=== PATIENT | male | born 1960 | race African-American/Black ===

== ENCOUNTER 2016-12-05 17:29 | Inpatient (IN) | payer MEDICAID, OTHER ==
[~2016-12-05] VITALS: Ht 170.2 cm; Wt 69.4 kg
--- NOTE | 2016-12-05 18:12 | Emergency Room Report ---
History of Present Illness General Chief Complaint: Upper Respiratory Illness Source: Patient Present Illness HPI The patient presents with dyspnea, cough is nonproductive or and orthopnea. He was diagnosed with congestive heart failure in July. He is taking medications to help treat this at this time. This includes a water pill. He claims that he has been able to take the medication. He was told the etiology for his CHF might be drugs, HIV or other problems. He denies chest pain. There is anxiety with the dyspnea. He initially denies drugs at this time (see tox). He has also heard himself wheezing. He feels feverish but has not documented. No NVD, although he states he is occasionally incontinent of stool when he urinates. No dysuria. States last CD4 and viral load "OK". Recently rechecked. Allergies: Coded Allergies: No Known Allergies (Unverified , 12/05/16) Patient History Past Medical History: see triage record Social History: Reports: drug use Social History Narrative With significant other Reviewed Nursing Documentation: PMH: Agreed, PSxH: Agreed Nursing Documentation-PMH Past Medical History: No History, Except For Hx Cardiac Problems: Yes - CHF, HIV+ Hx COPD: Yes Review of Systems All Other Systems: negative except mentioned in HPI Physical Exam Vital Signs Date Time Temp Pulse Resp B/P Pulse Ox O2 Delivery O2 Flow Rate FiO2 12/05/16 17:56 98.1 134 28 102/50 99 Room Air Sp02 EP Interpretation: reviewed, normal General Appearance: well appearing, GCS 15, mild distress Head: normocephalic Eyes: bilateral eye PERRL, bilateral eye normal inspection ENT: moist mucus membranes Neck: supple Respiratory: crackles, rales Cardiovascular #1: no edema, no murmur, JVD - to jaw sitting, tachycardia Cardiovascular #2: 2+ radial (R) Gastrointestinal: normal inspection, normal bowel sounds, non tender, no mass, non-distended Musculoskeletal: back normal, gait/station normal, normal range of motion Neurologic: alert, oriented x3, grossly normal Psychiatric: anxious Skin: normal inspection, warm/dry Medical Decision Making Diagnostic Impression: Primary Impression: CHF (congestive heart failure) Qualified Codes: I50.9 - Heart failure, unspecified Additional Impressions: Amphetamine abuse Tachycardia ER Course The patient presents with tachypnea and orthopnea with a physical exam consistent with congestive heart failure. Differential includes acute myocardial infarction, CHF, bronchitis, pneumonia amongst others. Evaluation did EKG, chest x-ray and labs. The patient be treated with nitro paste and Lasix. In addition he'll get reading treatment here. EKG without acute injury. CXR with CHF. Labs with negative troponin and elevated BNP. Leukopenia. Improved but still with YATES minimal exertion. Admit telemetry. Discussed Dr. Vivas. Discussed Dr. Woods. Admit Dr. Loja. Laboratory Tests Test 12/05/16 19:30 White Blood Count 2.1 K/UL (4.8-10.8) *L Red Blood Count 5.73 M/UL (4.70-6.10) Hemoglobin 14.8 G/DL (14.2-18.0) Hematocrit 48.3 % (42.0-52.0) Mean Corpuscular Volume 84 FL (80-99) Mean Corpuscular Hemoglobin 25.8 PG (27.0-31.0) L Mean Corpuscular Hemoglobin Concent 30.6 G/DL (32.0-36.0) L Red Cell Distribution Width 17.3 % (11.6-14.8) H Platelet Count 191 K/UL (150-450) Mean Platelet Volume 7.1 FL (6.5-10.1) Neutrophils (%) (Auto) % (45.0-75.0) Lymphocytes (%) (Auto) % (20.0-45.0) Monocytes (%) (Auto) % (1.0-10.0) Eosinophils (%) (Auto) % (0.0-3.0) Basophils (%) (Auto) % (0.0-2.0) Differential Total Cells Counted 100 Neutrophils % (Manual) 56 % (45-75) Lymphocytes % (Manual) 34 % (20-45) Monocytes % (Manual) 9 % (1-10) Eosinophils % (Manual) 0 % (0-3) Basophils % (Manual) 0 % (0-2) Band Neutrophils 1 % (0-8) Platelet Estimate Adequate Platelet Morphology Normal Anisocytosis 1+ Prothrombin Time 22.2 SEC (9.30-11.50) H Prothrombin Time INR 2.1 (0.9-1.1) H PTT 35 SEC (23-33) H Urine Color Brown Urine Appearance Clear Urine pH 6 (4.5-8.0) Urine Specific [place] 1.020 (1.005-1.035) Urine Protein 3+ (NEGATIVE) H Urine Glucose (UA) Negative (NEGATIVE) Urine Ketones Negative (NEGATIVE) Urine Occult Blood Negative (NEGATIVE) Urine Nitrite Negative (NEGATIVE) Urine Bilirubin Negative (NEGATIVE) Urine Urobilinogen 8 MG/DL (0.0-1.0) H Urine Leukocyte Esterase 1+ (NEGATIVE) H Urine RBC 0-2 /HPF (0 - 0) H Urine WBC 2-4 /HPF (0 - 0) Urine Squamous Epithelial Cells None /LPF (NONE/OCC) Urine Amorphous Sediment Few /LPF (NONE) H Urine Bacteria Few /HPF (NONE) Urine Mucus Few /LPF (NONE/OCC) H Sodium Level 135 mEQ/L (135-145) Potassium Level 4.4 mEQ/L (3.4-4.9) Chloride Level 94 mEQ/L (98-107) L Carbon Dioxide Level 24 mEQ/L (20-30) Anion Gap 17 (5-15) H Blood Urea Nitrogen 17 mg/dL (7-23) Creatinine 1.1 mg/dL (0.7-1.2) Estimate Glomerular Filtration Rate > 60 mL/min (>60) Glucose Level 102 mg/dL (74-106) Calcium Level 9.7 mg/dL (8.6-10.2) Total Bilirubin 1.1 mg/dL (0.0-1.2) Direct Bilirubin 0.4 mg/dL (0.1-0.3) H Aspartate Amino Transferase (AST) 36 U/L (5-40) Alanine Aminotransferase (ALT) 18 U/L (3-41) Alkaline Phosphatase 154 U/L (40-129) H Total Creatine Kinase 153 U/L (38-174) Creatine Kinase MB 3.4 ng/mL (< 6.7) Creatine Kinase MB Relative Index 2.2 Troponin I < 0.30 ng/mL (<=0.30) Pro-B-Type Natriuretic Peptide 4632 pg/mL (0-125) H Total Protein 9.2 g/dL (6.6-8.7) H Albumin 4.3 g/dL (3.5-5.2) Globulin 4.9 g/dL Albumin/Globulin Ratio 0.8 (1.0-2.7) L Urine Opiates Screen Negative (NEGATIVE) Urine Barbiturates Screen Negative (NEGATIVE) Phencyclidine (PCP) Screen Negative (NEGATIVE) Urine Amphetamines Screen Positive (NEGATIVE) H Urine Benzodiazepines Screen Negative (NEGATIVE) Urine Cocaine Screen Negative (NEGATIVE) Urine Marijuana (THC) Screen Negative (NEGATIVE) EKG Diagnostic Results Rate: tachycardiac ST Segments: no acute changes Rhythm Strip Diag. Results EP Interpretation: yes Rhythm: no PVC's, no ectopy, other - ST 132 Chest X-Ray Diagnostic Results Chest X-Ray Ordered: Yes # of Views/Limited/Complete: 1 View Interpretation: no effusion, no pneumothorax, other - CHF, inc cor, bullous dis FORD Indication: Shortness of Breath Impression: Other - see above Date Electronically Signed: Dec 05, 2016 Time Electronically Signed: 18:50 - Rodger Last Vital Signs Date Time Temp Pulse Resp B/P Pulse Ox O2 Delivery O2 Flow Rate FiO2 12/06/16 01:26 130 12/06/16 00:00 98.1 26 118/100 99 Room Air Status: improved Disposition: ADMITTED INPATIENT Condition: Serious Ruddy Soares M.D. Dec 05, 2016 18:12
[2016-12-05] MEDS ORDERED: Albuterol ud Inhalation HHN ONE (18:15)
[2016-12-05] MEDS ORDERED: Ipratropium 0.02% Inh Soln 2.5ml UD HHN ONE (18:15)
[2016-12-05] MEDS ORDERED: Nitroglycerin 2% oint pkt TOPIC ONE (18:15)
[2016-12-05 19:15] VITALS: BP 102/50
[2016-12-05 20:04] LABS: APPEARANCE,URINE CLEAR; KETONES,URINE NEGATIVE (NEGATIVE); LEUKOCYTE ESTERASE ,URINE 1+ (NEGATIVE); NITRITE,URINE NEGATIVE (NEGATIVE); PH,URINE 6 (4.5-8.0); PROTEIN,URINE 3+ (NEGATIVE); UROBILINOGEN,URINE 8 MG/DL (0.0-1.0)
[2016-12-05 20:09] LABS: MEAN CORPUSCULAR HEMOGLOBIN 25.8 PG (27.0-31.0); MEAN CORPUSCULAR HGB CONC 30.6 G/DL (32.0-36.0); MEAN CORPUSCULAR VOLUME 84 FL (80-99); MEAN PLATELET VOLUME 7.1 FL (6.5-10.1); PLATELET COUNT 191 K/UL (150-450); RED BLOOD COUNT 5.73 M/UL (4.70-6.10); RED CELL DISTRIBUTION WIDTH 17.3 % (11.6-14.8); TROPONIN I < 0.30 ng/mL (<=0.30)
[2016-12-05 20:11] LABS: INR 2.1 (0.9-1.1); PROTHROMBIN TIME 22.2 SEC (9.30-11.50)
[2016-12-05 20:12] LABS: ALANINE AMINOTRANSFERASE 18 U/L (3-41); ALBUMIN/GLOBULIN RATIO 0.8 (1.0-2.7); AMORPHOUS SEDIMENT,UR FEW /LPF; ANION GAP 17 (5-15); ASPARTATE AMINO TRANSFERASE 36 U/L (5-40); BACTERIA,URINE FEW /HPF; CALCIUM 9.7 mg/dL (8.6-10.2); CARBON DIOXIDE 24 mEQ/L (20-30); CHLORIDE 94 mEQ/L (98-107); CREATININE 1.1 mg/dL (0.7-1.2); GLOMERULAR FILTRATION RATE > 60 mL/min (>60); HEMOLYSIS 1; MUCUS,URINE FEW /LPF (NONE/OCC); POTASSIUM 4.4 mEQ/L (3.4-4.9); RBC,URINE 0-2 /HPF (0 - 0); SODIUM 135 mEQ/L (135-145); TOTAL PROTEIN 9.2 g/dL (6.6-8.7)
[2016-12-05 20:15] LABS: WHITE BLOOD COUNT 2.1 K/UL (4.8-10.8)
[2016-12-05 20:19] LABS: CKMB 3.4 ng/mL (< 6.7)
[2016-12-05 20:29] LABS: BILIRUBIN,DIRECT 0.4 mg/dL (0.1-0.3)
[2016-12-05 21:09] LABS: BAND NEUTROPHILS % (MANUAL) 1 % (0-8); LYMPHOCYTES % (MANUAL) 34 % (20-45); NEUTROPHILS % (MANUAL) 56 % (45-75); TOTAL CELLS COUNTED 100
[2016-12-05 21:10] LABS: ANISOCYTOSIS 1+; BASOPHILS % (MANUAL) 0 % (0-2); EOSINOPHILS % (MANUAL) 0 % (0-3); PLATELET ESTIMATE ADEQUATE; PLATELET MORPHOLOGY NORMAL
[2016-12-05 21:15] VITALS: BP 120/99
[2016-12-05 23:15] VITALS: BP 114/91
[2016-12-05] MEDS ORDERED: Morphine Sulfate 2mg/ml Inj IV PRN (23:15)
[2016-12-05] MEDS ORDERED: Nitroglycerin Subl 0.4mg tab (Bottle Of 25) SL PRN (23:15)
[2016-12-05] MEDS ORDERED: UNOBMED (23:44)
[2016-12-06] VITALS: BP_SYST 109; BP_SYST 118; BP_DIAS 100; BP_DIAS 84
[2016-12-06] MEDS: Heparin 5000 units/ml inj SUBQ SCH ×3 (01:35→21:03)
[2016-12-06] MEDS: DuoNeb 0.5-3(2.5)mg/3ml neb HHN PRN ×2 (03:23→08:06)
[2016-12-06] MEDS ORDERED: Metoprolol 25mg tab ORAL ONE (03:30)
[2016-12-06 08:00] VITALS: BP 112/70
--- NOTE | 2016-12-06 08:31 | History & Physical ---
History and Physical History & Physicial seen and examined. Dictation completed Itz Loja MD Dec 06, 2016 08:31
--- NOTE | 2016-12-06 08:34 | General Progress Note ---
Assessment/Plan Status: deteriorating Assessment/Plan 1- Acute Respiratory distress ( Non Hypoxemic 2- CHF exacerbation 3- COPD exacerbation 4- Abn EKG, ACS? Plan: Cardiology- Dr Pathak Pulmonary - Dr Puente ID- Dr Cartwright Are notified and consulted Transfer to [facility] See my HP Dictation Subjective ROS Limited/Unobtainable: Yes Allergies: Coded Allergies: No Known Allergies (Unverified , 12/05/16) Objective Last 24 Hour Vital Signs Date Time Temp Pulse Resp B/P Pulse Ox O2 Delivery O2 Flow Rate FiO2 12/06/16 04:28 125 12/06/16 03:45 131 109/84 12/06/16 03:37 131 30 99 Room Air 12/06/16 03:27 128 28 92 Room Air 12/06/16 01:26 130 12/06/16 00:00 98.1 128 26 118/100 99 Room Air 12/06/16 00:00 98.1 128 26 118/100 99 Room Air 12/06/16 00:00 93.2 125 51 109/84 96 Room Air 12/05/16 23:15 98.1 127 25 114/91 99 Room Air 12/05/16 21:15 98.1 129 21 120/99 99 Room Air 12/05/16 19:23 104/77 12/05/16 19:15 98.1 130 22 102/50 100 Room Air 12/05/16 19:15 130 22 Room Air 12/05/16 18:49 126 22 100 Room Air 12/05/16 18:23 99 22 99 Room Air 12/05/16 18:22 99 22 Room Air 12/05/16 17:56 98.1 134 28 102/50 99 Room Air Intake and Output 12/05/16 12/06/16 19:00 07:00 Output Total 1200 ml Balance -1200 ml Output Urine Total 1200 ml # Voids 1 Laboratory Tests 12/05/16 19:30: White Blood Count 2.1*L, Red Blood Count 5.73, Hemoglobin 14.8, Hematocrit 48.3 , Mean Corpuscular Volume 84, Mean Corpuscular Hemoglobin 25.8L, Mean Corpuscular Hemoglobin Concent 30.6L, Red Cell Distribution Width 17.3H, Platelet Count 191, Mean Platelet Volume 7.1, Neutrophils (%) (Auto) , Lymphocytes (%) (Auto) , Monocytes (%) (Auto) , Eosinophils (%) (Auto) , Basophils (%) (Auto) , Differential Total Cells Counted 100, Neutrophils % ( Manual) 56, Lymphocytes % (Manual) 34, Monocytes % (Manual) 9, Eosinophils % ( Manual) 0, Basophils % (Manual) 0, Band Neutrophils 1, Platelet Estimate Adequate, Platelet Morphology Normal, Anisocytosis 1+, Prothrombin Time 22.2H, Prothromb Time International Ratio 2.1H, Activated Partial Thromboplast Time 35H , Urine Color Brown, Urine Appearance Clear, Urine pH 6, Urine Specific [place] 1.020, Urine Protein 3+H, Urine Glucose (UA) Negative, Urine Ketones Negative, Urine Occult Blood Negative, Urine Nitrite Negative, Urine Bilirubin Negative, Urine Urobilinogen 8H, Urine Leukocyte Esterase 1+H, Urine RBC 0-2H, Urine WBC 2 -4, Urine Squamous Epithelial Cells None, Urine Amorphous Sediment FewH, Urine Bacteria Few, Urine Mucus FewH, Sodium Level 135, Potassium Level 4.4, Chloride Level 94L, Carbon Dioxide Level 24, Anion Gap 17H, Blood Urea Nitrogen 17, Creatinine 1.1, Estimat Glomerular Filtration Rate > 60, Glucose Level 102, Calcium Level 9.7, Total Bilirubin 1.1, Direct Bilirubin 0.4H, Aspartate Amino Transf (AST/SGOT) 36, Alanine Aminotransferase (ALT/SGPT) 18, Alkaline Phosphatase 154H, Total Creatine Kinase 153, Creatine Kinase MB 3.4, Creatine Kinase MB Relative Index 2.2, Troponin I < 0.30, Pro-B-Type Natriuretic Peptide 4632H, Total Protein 9.2H, Albumin 4.3, Globulin 4.9, Albumin/Globulin Ratio 0.8L, Urine Opiates Screen Negative, Urine Barbiturates Screen Negative, Phencyclidine (PCP) Screen Negative, Urine Amphetamines Screen PositiveH, Urine Benzodiazepines Screen Negative, Urine Cocaine Screen Negative, Urine Marijuana (THC) Screen Negative Height (Feet): 5 Height (Inches): 7.00 Weight (Pounds): 166 General Appearance: confused, agitated EENT: PERRL/EOMI Neck: supple Cardiovascular: tachycardia Respiratory/Chest: decreased breath sounds Abdomen: soft Extremities: non-tender Neurologic: counseling services manager II-XII grossly normal, other - Itz Perales MD Dec 06, 2016 08:34
[2016-12-06] MEDS ORDERED: Metoprolol 25mg tab ORAL SCH (09:00)
--- NOTE | 2016-12-06 09:13 | Diagnostic Imaging Report ---
Indication: Chest Pain Comparison: None A single view chest radiograph was obtained. Findings: Lucency noted in the lung apices bilaterally suspicious for emphysema and bullous disease. Findings may be confirmed by CT. The heart is enlarged. There is no definite infiltrate identified. Pulmonary vascularity is within normal limits. Bones are unremarkable. Impression: Suspected COPD and emphysema. Findings may be confirmed by CT
[2016-12-06] MEDS ORDERED: Nitroglycerin Subl 0.4mg tab (Bottle Of 25) SL PRN (09:30)
[2016-12-06] MEDS ORDERED: Morphine Sulfate 2mg/ml Inj IV PRN (09:30)
[2016-12-06 10:54] LABS: INR 2.7 (0.9-1.1); PROTHROMBIN TIME 28.3 SEC (9.30-11.50)
[2016-12-06] MEDS: Theophylline ER 100mg ORAL SCH ×2 (11:54→21:02)
[2016-12-06] MEDS: Solu-MEDROL 125mg Inj IV SCH ×2 (11:55→17:56)
[2016-12-06 12:00] VITALS: BP 97/72
[2016-12-06] MEDS ORDERED: DuoNeb 0.5-3(2.5)mg/3ml neb HHN PRN (12:00)
--- NOTE | 2016-12-06 12:30 | History and Physical Report ---
DATE OF ADMISSION: 12/05/2016 SOURCE OF INFORMATION: The patient and EMR. HISTORY OF PRESENT ILLNESS: The patient is a 56-year-old male with a history of CHF and COPD. He presented with the worsening of the shortness of breath for the last one week. The patient gives history of cocaine abuse. The patient is in shortness of breath with the need for cessation of the encounter to catch-up his breath. Episodes of sluggishness and declined in the attention. PAST MEDICAL HISTORY: CHF, amphetamine abuse, and cocaine abuse. PAST SURGICAL HISTORY: Denies. MEDICATIONS: Reviewed including aspirin, atorvastatin, Lasix, nitroglycerin, and DuoNeb. ALLERGIES: NKDA. FAMILY HISTORY: Reviewed noncontributory. REVIEW OF SYSTEMS: Limited as above. Negative for chest pain. Negative for headache. Negative for abnormal bleeding. Negative for diarrhea or constipation. Negative for severe pain in the extremities. Remainder of pertinent and positive elements of the review of systems reviewed with the patient. PHYSICAL EXAMINATION: VITAL SIGNS: Blood pressure 100/50, temperature 98.2 degrees, pulse oximetry 99% on room air, respiratory rate 18-28, and pulse rate 121 to 140. HEENT: Head and neck, atraumatic, normocephalic. CHEST: Diffuse decreased breathing sounds. HEART: S1 and S2. Regular rate and rhythm. Tachycardic. ABDOMEN: Soft. No organomegaly. MUSCULOSKELETAL: No gross focal motor deficit. Positive for nonpitting edema in the lower extremities. NEUROLOGY: The patient is awake and alert x3. Positive for episodes of decline in the attention and sleepiness, easily arousable. LABORATORY AND DIAGNOSTIC DATA: Labs, WBC 2.1, hemoglobin 14.8, and platelets 191,000. Sodium 135, potassium 4.4, BUN 17, and creatinine 1.1. Troponin x1 negative. BNP 4632. UA positive for 3+ blood, 3+ protein. Positive for the serum amphetamine. INR 2.1. Radiology report, official report is pending. ASSESSMENT AND PLAN: 1. Non-hypoxemic respiratory distress. 2. Chronic obstructive pulmonary disease exacerbation. 3. Congestive heart failure exacerbation. 4. Abnormal EKG possibility of acute coronary syndrome cannot be excluded. 5. Substance abuse (positive for amphetamine). 6. Leukopenia. 7. Hypercoagulation state likely secondary to congestive heart failure. 8. Proteinuria. 9. Gastrointestinal and deep vein thrombosis prophylaxes. PLAN OF CARE: Cardiology, Infectious Disease, and Pulmonary services are notified. I will transfer the patient to [facility]. Continue with breathing treatments. We will monitor serum troponin. Impending the 2D echo. Statins, aspirin and beta-duy have already been initiated. COMMENTS: The time of this dictation does not reflect the time of actual encounter on physical examination. Itz Loja M.D. DR: Jerardo JOB#: [id number] CC:
[2016-12-06 13:12] LABS: BASOPHILS % (AUTO) 0.6 % (0.0-2.0); LYMPHOCYTES % (AUTO) 14.2 % (20.0-45.0); MEAN CORPUSCULAR HEMOGLOBIN 25.3 PG (27.0-31.0); MEAN CORPUSCULAR HGB CONC 29.6 G/DL (32.0-36.0); MEAN CORPUSCULAR VOLUME 85 FL (80-99); MEAN PLATELET VOLUME 7.6 FL (6.5-10.1); MONOCYTES % (AUTO) 8.3 % (1.0-10.0); NEUTROPHILS % (AUTO) 76.9 % (45.0-75.0); PLATELET COUNT 208 K/UL (150-450); RED BLOOD COUNT 6.16 M/UL (4.70-6.10); RED CELL DISTRIBUTION WIDTH 17.4 % (11.6-14.8); WHITE BLOOD COUNT 5.9 K/UL (4.8-10.8)
[2016-12-06 13:46] LABS: TROPONIN I < 0.30 ng/mL (<=0.30)
[2016-12-06 13:50] LABS: ALANINE AMINOTRANSFERASE 19 U/L (3-41); ALBUMIN/GLOBULIN RATIO 0.8 (1.0-2.7); ANION GAP 22 (5-15); ASPARTATE AMINO TRANSFERASE 47 U/L (5-40); CALCIUM 9.2 mg/dL (8.6-10.2); CARBON DIOXIDE 20 mEQ/L (20-30); CHLORIDE 95 mEQ/L (98-107); CHOLESTEROL 103 mg/dL (< 200); CHOLESTEROL/HDL RATIO 4.9 (3.3-4.4); CREATININE 1.4 mg/dL (0.7-1.2); GLOMERULAR FILTRATION RATE > 60 mL/min (>60); HEMOGLOBIN A1C 7.1 % (< 6.0); HEMOLYSIS 9; LDL CHOLESTEROL (CALC.) 69 mg/dL (60-99); POTASSIUM 5.6 mEQ/L (3.4-4.9); SODIUM 137 mEQ/L (135-145); TOTAL PROTEIN 8.9 g/dL (6.6-8.7)
[2016-12-06 14:04] LABS: BILIRUBIN,DIRECT 0.6 mg/dL (0.1-0.3)
[2016-12-06] MEDS ORDERED: Sodium Polystyrene Sulfonate 15gm Powder ORAL ONE (14:45)
[2016-12-06 16:00] VITALS: BP 127/57
--- NOTE | 2016-12-06 16:53 | Consultation ---
Consult Note Consult Note ID CONSULT: Elmer# [id number] Assessment/Plan ASSESSMENT: 56 y/o male with: // HIV / AIDS, on unknown HAART - CD4 <200 per self report, does not take any ABX prophy // Leukopenia, afebrile ( on steroids ) // Acute respiratory distress / hypoxia - refused ABG // COPD exacerbation // CHF exacerbation // ARF - Cr 1.1-->1.4 // Elevated LFTs // Coagulopathy - INR 2.7 ?etiology // DM2 - HbA1c 7.1% // Polysubstance abuse ( meth, cocaine ) // NKDA // Full Code PLAN: - continue levaquin d# -7 - resume HAART, if able to reconcile - check LDH, legionella UAg, d-dimer, CD4 - consider CT chest - taper steroids per pulm - diuresis - monitor CBC, temperatures - monitor BMP - monitor CXR - respiratory support Thanks! Will follow CANDIDA VANCE Dec 06, 2016 16:53
[2016-12-06 20:00] VITALS: BP 100/46
[2016-12-06] MEDS: Metoprolol 25mg tab ORAL SCH (21:00)
[2016-12-06] MEDS ORDERED: Atorvastatin 20mg tab ORAL SCH (21:00)
[2016-12-06] MEDS: Atorvastatin 20mg tab ORAL SCH (21:01)
--- NOTE | 2016-12-06 22:40 | History and Physical ---
History of Present Illness General Date patient seen: Dec 06, 2016 Reason for Hospitalization: Upper Respiratory Illness Present Illness HPI 56 year old male with hx of HIV, emphysema, end stage heart disease presented to ER with dyspnea, cough, nonproductive and orthopnea. He was diagnosed with congestive heart failure in July. He denies chest pain. There is anxiety with the dyspnea. He has also heard himself wheezing. Allergies: Coded Allergies: No Known Allergies (Unverified , 12/05/16) Medication History Miscellaneous Medications Unable to Obtain Medications (Unable To Obtain Meds), (Reported) Patient History Healthcare decision maker Resuscitation status Full Code Advanced Directive on File Past Medical/Surgical History Past Medical/Surgical History: (1) Emphysema lung (2) HIV disease Review of Systems All Other Systems: negative except mentioned in HPI Physical Exam Lines, tubes and drains: peripheral, trach HEENT: atraumatic Neck: non-tender, normal alignment Respiratory/Chest: chest wall non-tender, lungs clear Breasts: no masses Cardiovascular/Chest: normal peripheral pulses Abdomen: normal bowel sounds, non tender Genitourinary/Rectal: normal genital exam Extremities: normal range of motion, non-tender, normal inspection Neurologic: cryptographic technician II-XII grossly normal Last 24 Hour Vital Signs Date Time Temp Pulse Resp B/P Pulse Ox O2 Delivery O2 Flow Rate FiO2 12/06/16 21:00 91 90/46 12/06/16 20:00 92 12/06/16 20:00 94.4 92 16 100/46 95 Venturi Mask 40 12/06/16 19:16 96 Venturi Mask 40 12/06/16 19:16 Venturi Mask 40 12/06/16 19:14 82 20 Venturi Mask 40 12/06/16 18:50 95.5 12/06/16 16:00 91.0 73 24 127/57 93 Venturi Mask 40 12/06/16 16:00 76 12/06/16 12:00 96.2 82 18 97/72 92 Nasal Cannula 12/06/16 12:00 83 12/06/16 09:10 97 112/79 12/06/16 08:05 112 22 99 Room Air 12/06/16 08:00 97 18 112/70 91 Room Air 12/06/16 08:00 110 22 93 Room Air 12/06/16 07:10 97 22 Room Air 12/06/16 04:28 125 12/06/16 03:45 131 109/84 12/06/16 03:37 131 30 99 Room Air 12/06/16 03:27 128 28 92 Room Air 12/06/16 01:26 130 12/06/16 00:00 98.1 128 26 118/100 99 Room Air 12/06/16 00:00 98.1 128 26 118/100 99 Room Air 12/06/16 00:00 93.2 125 51 109/84 96 Room Air 12/05/16 23:15 98.1 127 25 114/91 99 Room Air Intake and Output 12/05/16 12/06/16 19:00 07:00 Output Total 1200 ml Balance -1200 ml Output Urine Total 1200 ml # Voids 1 Laboratory Tests Test 12/06/16 10:00 12/06/16 12:45 12/06/16 17:30 12/06/16 17:35 Prothrombin Time 28.3 SEC (9.30-11.50) H Prothromb Time International Ratio 2.7 (0.9-1.1) H Activated Partial Thromboplast Time 36 SEC (23-33) H White Blood Count 5.9 K/UL (4.8-10.8) # Pending Red Blood Count 6.16 M/UL (4.70-6.10) H Hemoglobin 15.6 G/DL (14.2-18.0) Hematocrit 52.6 % (42.0-52.0) H Mean Corpuscular Volume 85 FL (80-99) Mean Corpuscular Hemoglobin 25.3 PG (27.0-31.0) L Mean Corpuscular Hemoglobin Concent 29.6 G/DL (32.0-36.0) L Red Cell Distribution Width 17.4 % (11.6-14.8) H Platelet Count 208 K/UL (150-450) Mean Platelet Volume 7.6 FL (6.5-10.1) Neutrophils (%) (Auto) 76.9 % (45.0-75.0) H Lymphocytes (%) (Auto) 14.2 % (20.0-45.0) L Monocytes (%) (Auto) 8.3 % (1.0-10.0) Eosinophils (%) (Auto) 0.0 % (0.0-3.0) Basophils (%) (Auto) 0.6 % (0.0-2.0) Sodium Level 137 mEQ/L (135-145) Potassium Level 5.6 mEQ/L (3.4-4.9) H Chloride Level 95 mEQ/L (98-107) L Carbon Dioxide Level 20 mEQ/L (20-30) Anion Gap 22 (5-15) H Blood Urea Nitrogen 25 mg/dL (7-23) H Creatinine 1.4 mg/dL (0.7-1.2) H Estimat Glomerular Filtration Rate > 60 mL/min (>60) Glucose Level 57 mg/dL (74-106) L Hemoglobin A1c 7.1 % (< 6.0) H Calcium Level 9.2 mg/dL (8.6-10.2) Total Bilirubin 2.1 mg/dL (0.0-1.2) H Direct Bilirubin 0.6 mg/dL (0.1-0.3) H Aspartate Amino Transf (AST/SGOT) 47 U/L (5-40) H Alanine Aminotransferase (ALT/SGPT) 19 U/L (3-41) Alkaline Phosphatase 150 U/L (40-129) H Troponin I < 0.30 ng/mL (<=0.30) Total Protein 8.9 g/dL (6.6-8.7) H Albumin 4.1 g/dL (3.5-5.2) Globulin 4.8 g/dL Albumin/Globulin Ratio 0.8 (1.0-2.7) L Triglycerides Level 67 mg/dL (< 150) Cholesterol Level 103 mg/dL (< 200) LDL Cholesterol 69 mg/dL (60-99) HDL Cholesterol 21 mg/dL (> 60) Cholesterol/HDL Ratio 4.9 (3.3-4.4) H Thyroid Stimulating Hormone (TSH) 2.210 uIU/mL (0.300-4.500) Lactate Dehydrogenase Pending Lymphocytes Pending D-Dimer 1430 ng/mL (<500) H Percent CD3 Cells Pending Absolute CD3 Count Pending Percent CD4 Cells Pending Absolute CD4 Count Pending T-Lymphocyte CD4/CD8 Ratio Pending Percent CD8 Cells Pending Absolute CD8 Count Pending Height (Feet): 5 Height (Inches): 7.00 Weight (Pounds): 166 Medications Current Medications Medications (Trade) Dose Ordered Sig/Rocio Route PRN Reason Start Time Stop Time Status Last Admin Dose Admin Acetaminophen (Tylenol) 650 mg Q6H PRN ORAL Mild Pain (Pain Scale 1-3) 12/06/16 09:30 01/05/17 09:29 Albuterol/ Ipratropium (DuoNeb 0.5-3(2.5)mg/3ml) 3 ml Q4H PRN HHN Shortness of Breath 12/06/16 12:00 12/11/16 11:59 Aspirin (ASA) 325 mg DAILY ORAL 12/07/16 09:00 01/06/17 08:59 Atorvastatin Calcium (Lipitor) 20 mg BEDTIME ORAL 12/06/16 21:00 01/05/17 20:59 12/06/16 21:01 Dextrose (Dextrose 50%) STAT PRN IV Hypoglycemia 12/06/16 09:30 01/05/17 09:29 Furosemide (Lasix) 20 mg DAILY IV 12/07/16 09:00 01/06/17 08:59 Heparin Sodium (Porcine) (Heparin 5000 units/ml) 5,000 units EVERY 12 HOURS SUBQ 12/06/16 21:00 01/05/17 20:59 12/06/16 21:03 Levofloxacin (Levaquin) 100 ml @ 100 mls/hr Q24H IVPB 12/06/16 13:00 12/13/16 12:59 12/06/16 13:03 Methylprednisolone Sodium Succinate (Solu-MEDROL) 60 mg EVERY 6 HOURS IV 12/06/16 12:00 01/05/17 11:59 12/06/16 17:56 Metoprolol Tartrate (Lopressor) 25 mg Q12HR ORAL 12/06/16 21:00 01/05/17 20:59 Morphine Sulfate (Morphine Sulfate) 2 mg Q8H PRN IV Moderate Pain (Pain Scale 4-6) 12/06/16 09:30 12/13/16 09:29 Nitroglycerin (Ntg) 0.4 mg Q5M PRN SL Prn Chest Pain 12/06/16 09:30 01/05/17 09:29 Theophylline 100 mg 100 mg EVERY 12 HOURS ORAL 12/06/16 12:00 01/05/17 11:59 12/06/16 21:02 Assessment/Plan Problem List: (1) Acute respiratory failure ICD Codes: J96.00 - Acute respiratory failure, unspecified whether with hypoxia or hypercapnia SNOMED: 01509816 (2) EF 20% (3) Emphysema lung ICD Codes: J43.9 - Emphysema, unspecified SNOMED: 81559392 (4) HIV disease ICD Codes: B20 - Human immunodeficiency virus [HIV] disease SNOMED: 77701186 Assessment/Plan respiratory treatment IV steroids sputum c/s IV antibiotics ID evaluation R/o Hep c echo cardiac evaluation DALLIN LORD Dec 06, 2016 22:39
[2016-12-07] VITALS: BP 95/64
[2016-12-07] MEDS: Solu-MEDROL 125mg Inj IV SCH ×5 (00:14→23:00)
--- NOTE | 2016-12-07 00:15 | Consultation ---
DATE OF CONSULTATION: 12/06/2016 INFECTIOUS DISEASE CONSULTATION CONSULTING PHYSICIAN: Roverto Cuenca M.D. REQUESTING PHYSICIAN: Itz Loja M.D. REASON FOR CONSULTATION: Human immunodeficiency virus positive. HISTORY OF PRESENT ILLNESS: This is a 56-year-old male with a history of congestive heart failure, chronic obstructive pulmonary disease and polysubstance abuse. The patient was admitted on 12/05/2016 with cough and shortness of breath. Chest x-ray shows chronic obstructive pulmonary disease. He is afebrile without leukocytosis. No evidence of acute renal insufficiency. Troponin is negative x2 and BNP is elevated. He is currently hypoxic and requiring high flow oxygen. He has been started on empiric Levaquin and Solu-Medrol and ID now consulted to assist in management. PAST MEDICAL HISTORY: 1. Human immunodeficiency virus/acquired immune deficiency syndrome, unknown single tablet anti-retroviral regimen. He states his CD4 count is low. 2. Chronic obstructive pulmonary disease. 3. Congestive heart failure, unknown systolic or diastolic. PAST SURGICAL HISTORY: None. ALLERGIES: No known drug allergies. MEDICATIONS: 1. Levaquin day #1. 2. Solu-Medrol 60 mg q.6 hours. 3. Aspirin. 4. Lasix. 5. Subcutaneous heparin. 6. Metoprolol. 7. Theophylline. FAMILY HISTORY: Noncontributory. SOCIAL HISTORY: The patient's urine drug screen is positive for methamphetamines and he also has a history of cocaine use. REVIEW OF SYSTEMS: As per history of present illness. Ten systems reviewed. All pertinent positives and negatives noted. PHYSICAL EXAMINATION: VITAL SIGNS: Temperature 98.2 degrees, blood pressure 127/57, heart rate in the 70s, respiratory rate 20 and saturating 93% on venturi mask. GENERAL: The patient is somewhat lethargic, but arousable. HEENT: No thrush. CARDIOVASCULAR: Regular rate and rhythm. No murmurs. PULMONARY: Decreased breath sounds. ABDOMEN: Bowel sounds present. Soft, nondistended, and nontender. EXTREMITIES: No edema. LABORATORY DATA: White blood cell count 5.9, hemoglobin 15.6, and platelets 208,000. Sodium 137, potassium 3.6, chloride 95, bicarbonate 20, BUN 25, and creatinine 1.4, increased from 1.1. INR is 2.7. AST 47, ALT 19 and alkaline phosphatase 150. Total bilirubin is 2.1. Hemoglobin A1c is 7.1%. Troponin is negative x2. BNP is 4632. MICROBIOLOGY: None. IMAGING: On 12/05/2016, chest x-ray with chronic obstructive pulmonary disease changes. ASSESSMENT: 1. Human immunodeficiency virus/acquired immune deficiency syndrome, on unknown single tablet anti-retroviral regimen with a CD4 count of less than 200 per self report. He says he does not take any antibiotic prophylaxis. 2. Leukopenia, afebrile on steroids. 3. Acute respiratory distress/hypoxia. He has refused ABG. 4. Chronic obstructive pulmonary disease exacerbation. 5. Congestive heart failure exacerbation, unknown systolic or diastolic. Presumed systolic. 6. Acute renal failure with a creatinine increasing from 1.1 to 1.4. 7. Elevated liver function tests. 8. Coagulopathy with an INR of 2.7, question etiology. 9. Diabetes type 2 with a hemoglobin A1c of 7.1%. 10. Polysubstance abuse, methamphetamines and cocaine. 11. No known drug allergies. 12. Full Code. PLAN: 1. Continue Levaquin day #1 of 5 to 7. 2. Resume anti-retroviral regimen if able to reconcile. 3. Check LDH, Legionella urine antigen, D-dimer and CD4 count. 4. Consider CT of the chest. 5. Taper steroids per pulmonary. 6. Diuresis. 7. Monitor CBC and temperatures. 8. Monitor BMP. 9. Monitor chest x-ray. 10. Respiratory support. Thank you. We will follow. Roverto Cuenca M.D. DR: CONSTANTINE JOB#: [id number] CC: Itz Loja M.D.; Fax#: [phone] Smith, M.D. Nino Cartwright M.D; Fax#: [phone]
[2016-12-07 04:00] VITALS: BP 95/68
[2016-12-07 08:00] VITALS: BP 93/67
--- NOTE | 2016-12-07 08:25 | Infectious Diseases Prog Note ---
Assessment/Plan Assessment/Plan A: COPD exacerbation HIV/AIDS Methamphetamine abuse Emphysema DM type II P; continue Levaquin Subjective ROS Limited/Unobtainable: Yes Allergies: Coded Allergies: No Known Allergies (Unverified , 12/05/16) Objective Vital Signs Last 24 Hour Vital Signs Date Time Temp Pulse Resp B/P Pulse Ox O2 Delivery O2 Flow Rate FiO2 12/07/16 07:18 97 22 Room Air 12/07/16 07:18 96 Room Air 21 12/07/16 07:18 Room Air 21 12/07/16 04:00 97.0 103 20 95/68 97 Venturi Mask 40 12/07/16 04:00 99 12/07/16 00:00 98.1 102 20 95/64 94 Venturi Mask 40 12/07/16 00:00 99 12/06/16 21:00 91 90/46 12/06/16 20:00 92 12/06/16 20:00 94.4 92 16 100/46 95 Venturi Mask 40 12/06/16 19:16 96 Venturi Mask 40 12/06/16 19:16 Venturi Mask 40 12/06/16 19:14 82 20 Venturi Mask 40 12/06/16 18:50 95.5 12/06/16 16:00 91.0 73 24 127/57 93 Venturi Mask 40 12/06/16 16:00 76 12/06/16 12:00 96.2 82 18 97/72 92 Nasal Cannula 12/06/16 12:00 83 12/06/16 09:10 97 112/79 Height (Feet): 5 Height (Inches): 7.00 Weight (Pounds): 153 General Appearance: no acute distress HEENT: other - O2 by mask Respiratory/Chest: chest wall non-tender Cardiovascular: normal rate Abdomen: soft, non tender Extremities: no edema Neurologic/Psychiatric: other - sleeping Laboratory Tests Test 12/06/16 10:00 12/06/16 12:45 12/06/16 17:30 12/06/16 17:35 Prothrombin Time 28.3 SEC (9.30-11.50) H Prothromb Time International Ratio 2.7 (0.9-1.1) H Activated Partial Thromboplast Time 36 SEC (23-33) H White Blood Count 5.9 K/UL (4.8-10.8) # Pending Red Blood Count 6.16 M/UL (4.70-6.10) H Hemoglobin 15.6 G/DL (14.2-18.0) Hematocrit 52.6 % (42.0-52.0) H Mean Corpuscular Volume 85 FL (80-99) Mean Corpuscular Hemoglobin 25.3 PG (27.0-31.0) L Mean Corpuscular Hemoglobin Concent 29.6 G/DL (32.0-36.0) L Red Cell Distribution Width 17.4 % (11.6-14.8) H Platelet Count 208 K/UL (150-450) Mean Platelet Volume 7.6 FL (6.5-10.1) Neutrophils (%) (Auto) 76.9 % (45.0-75.0) H Lymphocytes (%) (Auto) 14.2 % (20.0-45.0) L Monocytes (%) (Auto) 8.3 % (1.0-10.0) Eosinophils (%) (Auto) 0.0 % (0.0-3.0) Basophils (%) (Auto) 0.6 % (0.0-2.0) Sodium Level 137 mEQ/L (135-145) Potassium Level 5.6 mEQ/L (3.4-4.9) H Chloride Level 95 mEQ/L (98-107) L Carbon Dioxide Level 20 mEQ/L (20-30) Anion Gap 22 (5-15) H Blood Urea Nitrogen 25 mg/dL (7-23) H Creatinine 1.4 mg/dL (0.7-1.2) H Estimat Glomerular Filtration Rate > 60 mL/min (>60) Glucose Level 57 mg/dL (74-106) L Hemoglobin A1c 7.1 % (< 6.0) H Calcium Level 9.2 mg/dL (8.6-10.2) Total Bilirubin 2.1 mg/dL (0.0-1.2) H Direct Bilirubin 0.6 mg/dL (0.1-0.3) H Aspartate Amino Transf (AST/SGOT) 47 U/L (5-40) H Alanine Aminotransferase (ALT/SGPT) 19 U/L (3-41) Alkaline Phosphatase 150 U/L (40-129) H Troponin I < 0.30 ng/mL (<=0.30) Total Protein 8.9 g/dL (6.6-8.7) H Albumin 4.1 g/dL (3.5-5.2) Globulin 4.8 g/dL Albumin/Globulin Ratio 0.8 (1.0-2.7) L Triglycerides Level 67 mg/dL (< 150) Cholesterol Level 103 mg/dL (< 200) LDL Cholesterol 69 mg/dL (60-99) HDL Cholesterol 21 mg/dL (> 60) Cholesterol/HDL Ratio 4.9 (3.3-4.4) H Thyroid Stimulating Hormone (TSH) 2.210 uIU/mL (0.300-4.500) Lactate Dehydrogenase Pending Lymphocytes Pending D-Dimer 1430 ng/mL (<500) H Percent CD3 Cells Pending Absolute CD3 Count Pending Percent CD4 Cells Pending Absolute CD4 Count Pending T-Lymphocyte CD4/CD8 Ratio Pending Percent CD8 Cells Pending Absolute CD8 Count Pending Current Medications Medications (Trade) Dose Ordered Sig/Rocio Route PRN Reason Start Time Stop Time Status Last Admin Dose Admin Acetaminophen (Tylenol) 650 mg Q6H PRN ORAL Mild Pain (Pain Scale 1-3) 12/06/16 09:30 01/05/17 09:29 Albuterol/ Ipratropium (DuoNeb 0.5-3(2.5)mg/3ml) 3 ml Q4H PRN HHN Shortness of Breath 12/06/16 12:00 12/11/16 11:59 Aspirin (ASA) 325 mg DAILY ORAL 12/07/16 09:00 01/06/17 08:59 Atorvastatin Calcium (Lipitor) 20 mg BEDTIME ORAL 12/06/16 21:00 01/05/17 20:59 12/06/16 21:01 Dextrose (Dextrose 50%) STAT PRN IV Hypoglycemia 12/06/16 09:30 01/05/17 09:29 Furosemide (Lasix) 20 mg DAILY IV 12/07/16 09:00 01/06/17 08:59 Heparin Sodium (Porcine) (Heparin 5000 units/ml) 5,000 units EVERY 12 HOURS SUBQ 12/06/16 21:00 01/05/17 20:59 12/06/16 21:03 Levofloxacin (Levaquin) 100 ml @ 100 mls/hr Q24H IVPB 12/06/16 13:00 12/13/16 12:59 12/06/16 13:03 Methylprednisolone Sodium Succinate (Solu-MEDROL) 60 mg EVERY 6 HOURS IV 12/06/16 12:00 01/05/17 11:59 12/07/16 05:56 Metoprolol Tartrate (Lopressor) 25 mg Q12HR ORAL 12/06/16 21:00 01/05/17 20:59 Morphine Sulfate (Morphine Sulfate) 2 mg Q8H PRN IV Moderate Pain (Pain Scale 4-6) 12/06/16 09:30 12/13/16 09:29 Nitroglycerin (Ntg) 0.4 mg Q5M PRN SL Prn Chest Pain 12/06/16 09:30 01/05/17 09:29 Theophylline 100 mg 100 mg EVERY 12 HOURS ORAL 12/06/16 12:00 01/05/17 11:59 12/06/16 21:02 PRIMO PENG Dec 07, 2016 08:25
[2016-12-07] MEDS: Theophylline ER 100mg ORAL SCH ×2 (08:55→20:47)
[2016-12-07] MEDS: Heparin 5000 units/ml inj SUBQ SCH ×2 (08:56→20:47)
[2016-12-07] MEDS: Metoprolol 25mg tab ORAL SCH (08:57)
[2016-12-07 09:24] LABS: MEAN CORPUSCULAR HEMOGLOBIN 25.1 PG (27.0-31.0); MEAN CORPUSCULAR HGB CONC 30.6 G/DL (32.0-36.0); MEAN CORPUSCULAR VOLUME 82 FL (80-99); MEAN PLATELET VOLUME 6.6 FL (6.5-10.1); PLATELET COUNT 209 K/UL (150-450); RED BLOOD COUNT 5.49 M/UL (4.70-6.10); RED CELL DISTRIBUTION WIDTH 17.4 % (11.6-14.8)
[2016-12-07 09:34] LABS: WHITE BLOOD COUNT 2.1 K/UL (4.8-10.8)
[2016-12-07 09:46] LABS: ALANINE AMINOTRANSFERASE 18 U/L (3-41); ALBUMIN/GLOBULIN RATIO 0.8 (1.0-2.7); ANION GAP 21 (5-15); ASPARTATE AMINO TRANSFERASE 45 U/L (5-40); CALCIUM 8.4 mg/dL (8.6-10.2); CARBON DIOXIDE 21 mEQ/L (20-30); CHLORIDE 94 mEQ/L (98-107); CREATININE 1.3 mg/dL (0.7-1.2); GLOMERULAR FILTRATION RATE > 60 mL/min (>60); HEMOLYSIS 1; POTASSIUM 4.1 mEQ/L (3.4-4.9); SODIUM 136 mEQ/L (135-145); TOTAL PROTEIN 6.9 g/dL (6.6-8.7)
[2016-12-07 10:23] LABS: ANISOCYTOSIS 1+; BAND NEUTROPHILS % (MANUAL) 0 % (0-8); BASOPHILS % (MANUAL) 0 % (0-2); EOSINOPHILS % (MANUAL) 0 % (0-3); HYPOCHROMASIA 1+; LYMPHOCYTES % (MANUAL) 24 % (20-45); NEUTROPHILS % (MANUAL) 74 % (45-75); PLATELET ESTIMATE ADEQUATE; PLATELET MORPHOLOGY NORMAL; TOTAL CELLS COUNTED 100
--- NOTE | 2016-12-07 11:40 | Cardiology Progress Note ---
Assessment/Plan Assessment/Plan The patient is seen and examined, full consult note is dictated. Objective Last 24 Hour Vital Signs Date Time Temp Pulse Resp B/P Pulse Ox O2 Delivery O2 Flow Rate FiO2 12/07/16 08:57 105 93/67 12/07/16 08:00 97.5 105 19 93/67 95 Venturi Mask 50 12/07/16 07:54 103 12/07/16 07:18 97 22 Room Air 12/07/16 07:18 96 Room Air 21 12/07/16 07:18 Room Air 21 12/07/16 04:00 97.0 103 20 95/68 97 Venturi Mask 40 12/07/16 04:00 99 12/07/16 00:00 98.1 102 20 95/64 94 Venturi Mask 40 12/07/16 00:00 99 12/06/16 21:00 91 90/46 12/06/16 20:00 92 12/06/16 20:00 94.4 92 16 100/46 95 Venturi Mask 40 12/06/16 19:16 96 Venturi Mask 40 12/06/16 19:16 Venturi Mask 40 12/06/16 19:14 82 20 Venturi Mask 40 12/06/16 18:50 95.5 12/06/16 16:00 91.0 73 24 127/57 93 Venturi Mask 40 12/06/16 16:00 76 12/06/16 12:00 96.2 82 18 97/72 92 Nasal Cannula 12/06/16 12:00 83 Intake and Output 12/06/16 12/07/16 18:59 06:59 Intake Total 500 ml 360 ml Output Total 500 ml Balance 0 ml 360 ml Intake Oral 400 ml 360 ml IV Total 100 ml Output Urine Total 500 ml # Voids 2 3 # Bowel Movements 1 Laboratory Tests Test 12/06/16 12:45 12/06/16 17:30 12/06/16 17:35 12/07/16 08:30 White Blood Count 5.9 K/UL (4.8-10.8) # Pending 2.1 K/UL (4.8-10.8) #*L Red Blood Count 6.16 M/UL (4.70-6.10) H 5.49 M/UL (4.70-6.10) Hemoglobin 15.6 G/DL (14.2-18.0) 13.8 G/DL (14.2-18.0) L Hematocrit 52.6 % (42.0-52.0) H 45.1 % (42.0-52.0) Mean Corpuscular Volume 85 FL (80-99) 82 FL (80-99) Mean Corpuscular Hemoglobin 25.3 PG (27.0-31.0) L 25.1 PG (27.0-31.0) L Mean Corpuscular Hemoglobin Concent 29.6 G/DL (32.0-36.0) L 30.6 G/DL (32.0-36.0) L Red Cell Distribution Width 17.4 % (11.6-14.8) H 17.4 % (11.6-14.8) H Platelet Count 208 K/UL (150-450) 209 K/UL (150-450) Mean Platelet Volume 7.6 FL (6.5-10.1) 6.6 FL (6.5-10.1) Neutrophils (%) (Auto) 76.9 % (45.0-75.0) H % (45.0-75.0) Lymphocytes (%) (Auto) 14.2 % (20.0-45.0) L % (20.0-45.0) Monocytes (%) (Auto) 8.3 % (1.0-10.0) % (1.0-10.0) Eosinophils (%) (Auto) 0.0 % (0.0-3.0) % (0.0-3.0) Basophils (%) (Auto) 0.6 % (0.0-2.0) % (0.0-2.0) Sodium Level 137 mEQ/L (135-145) 136 mEQ/L (135-145) Potassium Level 5.6 mEQ/L (3.4-4.9) H 4.1 mEQ/L (3.4-4.9) Chloride Level 95 mEQ/L (98-107) L 94 mEQ/L (98-107) L Carbon Dioxide Level 20 mEQ/L (20-30) 21 mEQ/L (20-30) Anion Gap 22 (5-15) H 21 (5-15) H Blood Urea Nitrogen 25 mg/dL (7-23) H 45 mg/dL (7-23) H Creatinine 1.4 mg/dL (0.7-1.2) H 1.3 mg/dL (0.7-1.2) H Estimat Glomerular Filtration Rate > 60 mL/min (>60) > 60 mL/min (>60) Glucose Level 57 mg/dL (74-106) L 138 mg/dL (74-106) H Hemoglobin A1c 7.1 % (< 6.0) H Calcium Level 9.2 mg/dL (8.6-10.2) 8.4 mg/dL (8.6-10.2) L Total Bilirubin 2.1 mg/dL (0.0-1.2) H 0.9 mg/dL (0.0-1.2) Direct Bilirubin 0.6 mg/dL (0.1-0.3) H Aspartate Amino Transf (AST/SGOT) 47 U/L (5-40) H 45 U/L (5-40) H Alanine Aminotransferase (ALT/SGPT) 19 U/L (3-41) 18 U/L (3-41) Alkaline Phosphatase 150 U/L (40-129) H 109 U/L (40-129) Troponin I < 0.30 ng/mL (<=0.30) Total Protein 8.9 g/dL (6.6-8.7) H 6.9 g/dL (6.6-8.7) Albumin 4.1 g/dL (3.5-5.2) 3.1 g/dL (3.5-5.2) L Globulin 4.8 g/dL 3.8 g/dL Albumin/Globulin Ratio 0.8 (1.0-2.7) L 0.8 (1.0-2.7) L Triglycerides Level 67 mg/dL (< 150) Cholesterol Level 103 mg/dL (< 200) LDL Cholesterol 69 mg/dL (60-99) HDL Cholesterol 21 mg/dL (> 60) Cholesterol/HDL Ratio 4.9 (3.3-4.4) H Thyroid Stimulating Hormone (TSH) 2.210 uIU/mL (0.300-4.500) Lactate Dehydrogenase Pending Lymphocytes Pending D-Dimer 1430 ng/mL (<500) H Percent CD3 Cells Pending Absolute CD3 Count Pending Percent CD4 Cells Pending Absolute CD4 Count Pending T-Lymphocyte CD4/CD8 Ratio Pending Percent CD8 Cells Pending Absolute CD8 Count Pending Differential Total Cells Counted 100 Neutrophils % (Manual) 74 % (45-75) Lymphocytes % (Manual) 24 % (20-45) Monocytes % (Manual) 2 % (1-10) Eosinophils % (Manual) 0 % (0-3) Basophils % (Manual) 0 % (0-2) Band Neutrophils 0 % (0-8) Platelet Estimate Adequate Platelet Morphology Normal Hypochromasia 1+ Anisocytosis 1+ RENATA BEAN Dec 07, 2016 11:40
[2016-12-07 12:00] VITALS: BP 106/86
--- NOTE | 2016-12-07 13:06 | General Progress Note ---
Assessment/Plan Status: unchanged Assessment/Plan 1. Non-hypoxemic respiratory distress. 2. Chronic obstructive pulmonary disease exacerbation. 3. HIV- Non compliant with medication 3. Congestive heart failure exacerbation. 4. Abnormal EKG possibility of acute coronary syndrome cannot be excluded. 5. Substance abuse (positive for amphetamine). 6. Leukopenia. 7. Hypercoagulation state likely secondary to congestive heart failure. 8. Proteinuria. Plan: Cardiology, Pulmonary and ID- Notes are reviewed current management Subjective ROS Limited/Unobtainable: No Constitutional: Reports: other - mild respiratory distress HEENT: Reports: no symptoms Cardiovascular: Reports: no symptoms Respiratory: Reports: shortness of breath Allergies: Coded Allergies: No Known Allergies (Unverified , 12/05/16) Objective Last 24 Hour Vital Signs Date Time Temp Pulse Resp B/P Pulse Ox O2 Delivery O2 Flow Rate FiO2 12/07/16 12:00 97.6 110 20 106/86 99 Venturi Mask 50 12/07/16 08:57 105 93/67 12/07/16 08:00 97.5 105 19 93/67 95 Venturi Mask 50 12/07/16 07:54 103 12/07/16 07:18 97 22 Room Air 12/07/16 07:18 96 Room Air 21 12/07/16 07:18 Room Air 21 12/07/16 04:00 97.0 103 20 95/68 97 Venturi Mask 40 12/07/16 04:00 99 12/07/16 00:00 98.1 102 20 95/64 94 Venturi Mask 40 12/07/16 00:00 99 12/06/16 21:00 91 90/46 12/06/16 20:00 92 12/06/16 20:00 94.4 92 16 100/46 95 Venturi Mask 40 12/06/16 19:16 96 Venturi Mask 40 12/06/16 19:16 Venturi Mask 40 12/06/16 19:14 82 20 Venturi Mask 40 12/06/16 18:50 95.5 12/06/16 16:00 91.0 73 24 127/57 93 Venturi Mask 40 12/06/16 16:00 76 Intake and Output 12/06/16 12/07/16 19:00 07:00 Intake Total 500 ml 360 ml Output Total 500 ml Balance 0 ml 360 ml Intake Oral 400 ml 360 ml IV Total 100 ml Output Urine Total 500 ml # Voids 2 3 # Bowel Movements 1 Laboratory Tests 12/06/16 17:30: Lactate Dehydrogenase [Pending] 12/06/16 17:35: White Blood Count [Pending], Lymphocytes [Pending], D-Dimer 1430H, Percent CD3 Cells [Pending], Absolute CD3 Count [Pending], Percent CD4 Cells [Pending], Absolute CD4 Count [Pending], T-Lymphocyte CD4/CD8 Ratio [Pending], Percent CD8 Cells [Pending], Absolute CD8 Count [Pending] 12/07/16 08:30: White Blood Count 2.1#*L, Red Blood Count 5.49, Hemoglobin 13.8L, Hematocrit 45.1, Mean Corpuscular Volume 82, Mean Corpuscular Hemoglobin 25.1L, Mean Corpuscular Hemoglobin Concent 30.6L, Red Cell Distribution Width 17.4H, Platelet Count 209, Mean Platelet Volume 6.6, Neutrophils (%) (Auto) , Lymphocytes (%) (Auto) , Monocytes (%) (Auto) , Eosinophils (%) (Auto) , Basophils (%) (Auto) , Differential Total Cells Counted 100, Neutrophils % ( Manual) 74, Lymphocytes % (Manual) 24, Monocytes % (Manual) 2, Eosinophils % ( Manual) 0, Basophils % (Manual) 0, Band Neutrophils 0, Platelet Estimate Adequate, Platelet Morphology Normal, Hypochromasia 1+, Anisocytosis 1+, Sodium Level 136, Potassium Level 4.1, Chloride Level 94L, Carbon Dioxide Level 21, Anion Gap 21H, Blood Urea Nitrogen 45H, Creatinine 1.3H, Estimat Glomerular Filtration Rate > 60, Glucose Level 138H, Calcium Level 8.4L, Total Bilirubin 0.9, Aspartate Amino Transf (AST/SGOT) 45H, Alanine Aminotransferase (ALT/SGPT) 18, Alkaline Phosphatase 109, Total Protein 6.9, Albumin 3.1L, Globulin 3.8, Albumin/Globulin Ratio 0.8L Height (Feet): 5 Height (Inches): 7.00 Weight (Pounds): 153 General Appearance: mild distress EENT: PERRL/EOMI Neck: supple Cardiovascular: tachycardia Respiratory/Chest: rhonchi - bilaterally Abdomen: soft Extremities: non-tender Neurologic: manager float II-XII grossly normal Itz Loja MD Dec 07, 2016 13:06
--- NOTE | 2016-12-07 14:51 | Cardiology Report ---
APPROVED REPORT EXAM: Two-dimensional and M-mode echocardiogram with Doppler and color Doppler. INDICATION SOB M-Mode DIMENSIONS IVSd1.0 (0.7-1.1cm)Left Atrium (MM)4.9 (1.6-4.0cm) LVDd6.2 (3.5-5.6cm)Aortic Root3.2 (2.0-3.7cm) PWd1.1 (0.7-1.1cm)Aortic Cusp Exc.2.0 (1.5-2.0cm) LVDs5.2 (2.5-4.0cm) PWs1.3 cm Moderate left ventricular enlargement. Global left ventricular hypokinesis. Bbest motion noted in the proximal to mid lateral wall and ant alexander Left ventricular ejection fraction estimated to be 20-25 %. No evidence of left ventricular hypertrophy. No evidence of pericardial fat or effusion. Moderate left atrial enlargement by 2D. Mild right atrial enlargement by 2D. Focal aortic valve sclerosis with adequate cusp excursion Thickened mitral valve leaflets with normal excursion. Mitral annulus and aortic root calcification. Pulmonic valve not well visualized. Normal tricuspid valve structure. IVC is normal in size with physiological collapse. A color flow and spectral Doppler study was performed and revealed: No aortic regurgitation. Mild to moderate mitral regurgitation. Left ventricular diastolic dysfunction grade 1. Mild tricuspid regurgitation. Tricuspid systolic velocities suggests peak right ventricular systolic pressure of 45-50 mmHg Consistent with mild pulmonary hypertension.
[2016-12-07 16:00] VITALS: BP 98/66
--- NOTE | 2016-12-07 17:19 | Pulmonology Progress Note ---
Assessment/Plan Problems: (1) Acute respiratory failure (2) EF 20% (3) Emphysema lung (4) HIV disease Assessment/Plan hold lasix b/o rising bun/creatinine CT chest to evaluate the emphysema abx as per ID might go to lower level all notes reviewed Subjective Interval Events: less short of breath Allergies: Coded Allergies: No Known Allergies (Unverified , 12/05/16) Objective Last 24 Hour Vital Signs Date Time Temp Pulse Resp B/P Pulse Ox O2 Delivery O2 Flow Rate FiO2 12/07/16 13:08 108/70 12/07/16 13:08 108 108/70 12/07/16 12:00 97.6 110 20 106/86 99 Venturi Mask 50 12/07/16 11:46 106 12/07/16 08:57 105 93/67 12/07/16 08:00 97.5 105 19 93/67 95 Venturi Mask 50 12/07/16 07:54 103 12/07/16 07:18 97 22 Room Air 12/07/16 07:18 96 Room Air 21 12/07/16 07:18 Room Air 21 12/07/16 04:00 97.0 103 20 95/68 97 Venturi Mask 40 12/07/16 04:00 99 12/07/16 00:00 98.1 102 20 95/64 94 Venturi Mask 40 12/07/16 00:00 99 12/06/16 21:00 91 90/46 12/06/16 20:00 92 12/06/16 20:00 94.4 92 16 100/46 95 Venturi Mask 40 12/06/16 19:16 96 Venturi Mask 40 12/06/16 19:16 Venturi Mask 40 12/06/16 19:14 82 20 Venturi Mask 40 12/06/16 18:50 95.5 Intake and Output 12/06/16 12/07/16 19:00 07:00 Intake Total 500 ml 360 ml Output Total 500 ml Balance 0 ml 360 ml Intake Oral 400 ml 360 ml IV Total 100 ml Output Urine Total 500 ml # Voids 2 3 # Bowel Movements 1 General Appearance: WD/WN HEENT: normocephalic, atraumatic Respiratory/Chest: chest wall non-tender, lungs clear Cardiovascular: normal peripheral pulses, normal rate Abdomen: normal bowel sounds, soft, non tender Genitourinary: normal external genitalia Neurologic/Psychiatric: body finisher II-XII grossly normal Lymphatic: no neck adenopathy Laboratory Tests 12/06/16 17:30: Lactate Dehydrogenase [Pending] 12/06/16 17:35: White Blood Count [Pending], Lymphocytes [Pending], D-Dimer 1430H, Percent CD3 Cells [Pending], Absolute CD3 Count [Pending], Percent CD4 Cells [Pending], Absolute CD4 Count [Pending], T-Lymphocyte CD4/CD8 Ratio [Pending], Percent CD8 Cells [Pending], Absolute CD8 Count [Pending] 12/07/16 08:30: White Blood Count 2.1#*L, Red Blood Count 5.49, Hemoglobin 13.8L, Hematocrit 45.1, Mean Corpuscular Volume 82, Mean Corpuscular Hemoglobin 25.1L, Mean Corpuscular Hemoglobin Concent 30.6L, Red Cell Distribution Width 17.4H, Platelet Count 209, Mean Platelet Volume 6.6, Neutrophils (%) (Auto) , Lymphocytes (%) (Auto) , Monocytes (%) (Auto) , Eosinophils (%) (Auto) , Basophils (%) (Auto) , Differential Total Cells Counted 100, Neutrophils % ( Manual) 74, Lymphocytes % (Manual) 24, Monocytes % (Manual) 2, Eosinophils % ( Manual) 0, Basophils % (Manual) 0, Band Neutrophils 0, Platelet Estimate Adequate, Platelet Morphology Normal, Hypochromasia 1+, Anisocytosis 1+, Sodium Level 136, Potassium Level 4.1, Chloride Level 94L, Carbon Dioxide Level 21, Anion Gap 21H, Blood Urea Nitrogen 45H, Creatinine 1.3H, Estimat Glomerular Filtration Rate > 60, Glucose Level 138H, Calcium Level 8.4L, Total Bilirubin 0.9, Aspartate Amino Transf (AST/SGOT) 45H, Alanine Aminotransferase (ALT/SGPT) 18, Alkaline Phosphatase 109, Total Protein 6.9, Albumin 3.1L, Globulin 3.8, Albumin/Globulin Ratio 0.8L Current Medications Medications (Trade) Dose Ordered Sig/Rocio Route PRN Reason Start Time Stop Time Status Last Admin Dose Admin Acetaminophen (Tylenol) 650 mg Q6H PRN ORAL Mild Pain (Pain Scale 1-3) 12/06/16 09:30 01/05/17 09:29 Albuterol/ Ipratropium (DuoNeb 0.5-3(2.5)mg/3ml) 3 ml Q4H PRN HHN Shortness of Breath 12/06/16 12:00 12/11/16 11:59 Aspirin (ASA) 81 mg DAILY ORAL 12/08/16 09:00 01/07/17 08:59 Atorvastatin Calcium (Lipitor) 20 mg BEDTIME ORAL 12/06/16 21:00 01/05/17 20:59 12/06/16 21:01 Dextrose (Dextrose 50%) STAT PRN IV Hypoglycemia 12/06/16 09:30 01/05/17 09:29 Diltiazem HCl (Cardizem) 30 mg EVERY 8 HOURS ORAL 12/07/16 14:00 01/06/17 13:59 12/07/16 13:08 Furosemide (Lasix) 20 mg DAILY IV 12/07/16 09:00 01/06/17 08:59 12/07/16 08:55 Heparin Sodium (Porcine) (Heparin 5000 units/ml) 5,000 units EVERY 12 HOURS SUBQ 12/06/16 21:00 01/05/17 20:59 12/07/16 08:56 Isosorbide Dinitrate (Isordil) 10 mg QID ORAL 12/07/16 13:00 01/06/17 12:59 12/07/16 13:08 Levofloxacin (Levaquin) 100 ml @ 100 mls/hr Q24H IVPB 12/06/16 13:00 12/13/16 12:59 12/07/16 13:05 Methylprednisolone Sodium Succinate (Solu-MEDROL) 60 mg EVERY 6 HOURS IV 12/06/16 12:00 01/05/17 11:59 12/07/16 13:05 Morphine Sulfate (Morphine Sulfate) 2 mg Q8H PRN IV Moderate Pain (Pain Scale 4-6) 12/06/16 09:30 12/13/16 09:29 Nitroglycerin (Ntg) 0.4 mg Q5M PRN SL Prn Chest Pain 12/06/16 09:30 01/05/17 09:29 Theophylline 100 mg 100 mg EVERY 12 HOURS ORAL 12/06/16 12:00 01/05/17 11:59 12/07/16 08:55 DALLIN LORD Dec 07, 2016 17:19
[2016-12-07 20:00] VITALS: BP 112/82
[2016-12-07] MEDS: Atorvastatin 20mg tab ORAL SCH (20:45)
--- NOTE | 2016-12-07 23:15 | Consultation ---
DATE OF CONSULTATION: 12/07/2016 CARDIOLOGY CONSULTATION: REFERRING PHYSICIAN: Itz Loja M.D. REASON FOR CONSULTATION: Management of shortness of breath from Cardiology standpoint. HISTORY OF PRESENT ILLNESS: The patient is a very pleasant 56-year-old gentleman, who presented to this hospital with cough, dyspnea, and orthopnea. The patient has been diagnosed with congestive heart failure in July this year. On arrival to the hospital, his blood pressure was 102/50, however, his heart rate is 134. He apparently had positive amphetamine in the urine. On arrival to the emergency department, he was afebrile. PAST MEDICAL HISTORY: 1. History of HIV disease. 2. History of congestive heart failure. 3. History of polysubstance abuse. 4. History of COPD. PAST SURGICAL HISTORY: None. MEDICATIONS: List of medication in the hospital including Lasix 20 mg IV daily, aspirin 325 mg daily, atorvastatin 20 mg p.o. nightly, heparin subcutaneous 5000 q.12 hours, metoprolol 12.5 mg p.o. q.12 hours, levofloxacin, nitroglycerin 0.4 mg every 5 hours minutes p.r.n. chest pain, morphine sulfate 2 mg IV q.8 hours p.r.n. pain, acetaminophen 650 mg p.o. q.6 hours p.r.n. pain, theophylline 100 mg q.12 hours, methylprednisolone 60 mg IV q.6 hours, albuterol, Atrovent, and DuoNeb 3 mL q.4 hours p.r.n. shortness of breath. ALLERGIES: No known drug allergies. SOCIAL HISTORY: He use amphetamines as well as cocaine in the past. REVIEW OF SYSTEMS: A 12-system review done essentially negative except what mentioned in the history of present illness. PHYSICAL EXAMINATION: VITAL SIGNS: At time of arrival to the hospital, blood pressure was 102/50, pulse of 134, respirations 28, temperature 98.1 degrees Fahrenheit, and O2 saturation 99% on room air. GENERAL: The patient is a very pleasant 56-year-old [place] in mild respiratory distress. HEENT: Atraumatic and normocephalic. Anicteric. Pupils are equal, round, and reactive to light and accommodation. Extraocular muscles are intact. He has got diaphoresis. NECK: JVP is elevated at about 12 cm and no carotid bruits. Carotid upstrokes 2+ bilaterally. CARDIOVASCULAR: Normal S1, S2. Regular rate and rhythm. Tachycardic. Cannot appreciate any murmurs, gallops, or rubs. LUNGS: Diminished breath sounds throughout. There is some scattered rhonchi bilaterally. He did not hear any crackles. ABDOMEN: Soft, nontender, and nondistended. No hepatosplenomegaly. Positive bowel sounds. EXTREMITIES: No evidence of edema, clubbing, or cyanosis. LABORATORY FINDINGS: WBC 12.1, hemoglobin 14.8, hematocrit 48.3, and platelet count is 191,000. Sodium 135, potassium 4.4, chloride 94, bicarbonate 24, BUN 17, creatinine 1.1, and glucose 102. Calcium is 9.7. ProBNP was 4632. Troponin I is less than 0.3. INR was 2.1. Toxicology urine showed positive amphetamine. A 12-lead electrocardiogram shows most likely atrial tachycardia at rate of [address] and T-wave abnormalities. A chest x-ray shows cardiomegaly with pulmonary vascular congestion. ASSESSMENT AND PLAN: The patient is a very unfortunate 56-year-old gentleman seen in Cardiology consultation. 1. Dyspnea. This might be a combination of acute exacerbation of chronic obstructive pulmonary disease per physical examination and presence of rhonchi as well as acute congestive heart failure. It is not quite clear whether this patient has a predominant heart failure is diastolic and systolic or combination. I would expect that this could be combination that would be determined by 2D echocardiography and assessment of systolic and diastolic function. The patient would be a good a candidate for diuretic. In view of the amphetamine, I would prefer calcium channel blockers to beta-blockers and I would like to add nitrate to the regimen. He would be benefit from aspirin 81 mg p.o. daily as well as statin. 2. Further therapeutic and diagnostic decision will be based on results of echocardiography. 3. History of human immunodeficiency virus disease. I would like to thank, Dr. Loja, for the kind consultation. Jensen Pathak M.D. DR: Jerson JOB#: [id number] CC:
[2016-12-08] VITALS: BP 116/90
[2016-12-08 04:00] VITALS: BP 107/81
[2016-12-08] MEDS: Solu-MEDROL 125mg Inj IV SCH ×3 (05:03→17:31)
[2016-12-08 05:27] LABS: MEAN CORPUSCULAR HEMOGLOBIN 25.3 PG (27.0-31.0); MEAN CORPUSCULAR VOLUME 82 FL (80-99); MEAN PLATELET VOLUME 6.9 FL (6.5-10.1); PLATELET COUNT 231 K/UL (150-450); RED BLOOD COUNT 5.31 M/UL (4.70-6.10); WHITE BLOOD COUNT 9.3 K/UL (4.8-10.8)
[2016-12-08] MEDS ORDERED: Nitroglycerin Subl 0.4mg tab (Bottle Of 25) SL PRN (05:45)
[2016-12-08] MEDS ORDERED: Solu-MEDROL 125mg Inj IV SCH (06:00)
[2016-12-08 06:02] LABS: ALANINE AMINOTRANSFERASE 19 U/L (3-41); ALBUMIN/GLOBULIN RATIO 0.8 (1.0-2.7); ANION GAP 17 (5-15); ASPARTATE AMINO TRANSFERASE 55 U/L (5-40); CALCIUM 8.2 mg/dL (8.6-10.2); CARBON DIOXIDE 25 mEQ/L (20-30); CHLORIDE 98 mEQ/L (98-107); GLOMERULAR FILTRATION RATE > 60 mL/min (>60); HEMOLYSIS 2; POTASSIUM 3.7 mEQ/L (3.4-4.9); SODIUM 140 mEQ/L (135-145); TOTAL PROTEIN 6.7 g/dL (6.6-8.7)
[2016-12-08 06:14] LABS: THYROID STIMULATING HORMONE 0.393 uIU/mL (0.300-4.500)
[2016-12-08 07:20] LABS: PHOSPHORUS 3.4 mg/dL (2.5-4.8); URIC ACID 7.1 mg/dL (3.0-7.5)
[2016-12-08 08:00] VITALS: BP 125/91
[2016-12-08] MEDS ORDERED: DuoNeb 0.5-3(2.5)mg/3ml neb HHN PRN (08:00)
--- NOTE | 2016-12-08 08:42 | Anethesia Preoperative Eval ---
Anesthesia Pre-op PMH/ROS General Date of Evaluation: Dec 08, 2016 Anesthesiologist: Hernán ASA Score: ASA 3 Mallampati Score Class I : Soft palate, uvula, fauces, pillars visible Class II: Soft palate, uvula, fauces visible Class III: Soft palate, base of uvula visible Class IV: Only hard plate visible Mallampati Classification: Class II Surgeon: Lani Diagnosis: GI pain Surgical Procedure: EGD Anesthesia History: none Family History: no anesthesia problems Allergies: Coded Allergies: No Known Allergies (Unverified , 12/05/16) Medications: see eMAR Past Medical History Cardiovascular: Reports: other - CHF, Denies: CAD, HTN, HI, arrhythmia, valve dz Pulmonary: Reports: COPD, Denies: YIMI, asthma, other Gastrointestinal/Genitourinary: Reports: GERD, Denies: CRI, ESRD, other Neurologic/Psychiatric: Denies: CVA, TIA, dementia, depression/anxiety, other Endocrine: Denies: DM, hypothyroidism, other, steroids HEENT: Denies: [place] (L), [place] (R), cataract (L), cataract (R), glaucoma, other Hematology/Immune: Reports: other - HIV, Denies: DVT, anemia, bleeding disorder Musculoskeletal/Integumentary: Denies: DDD, DJD, OA, RA, edema, other PSxH Narrative: Dnies Anesthesia Pre-op Phys. Exam Physician Exam Last Vital Signs Date Time Temp Pulse Resp B/P Pulse Ox O2 Delivery O2 Flow Rate FiO2 12/08/16 08:00 96.1 118 20 125/91 98 Venturi Mask 40 12/08/16 07:43 8.0 Constitutional: NAD Cardiovascular: RRR Respiratory: CTA Airway Exam Mallampati Score: Class II MO: full ROM: full Anesthesia Pre-op A/P Labs Hematology Test 12/08/16 03:25 White Blood Count 9.3 K/UL (4.8-10.8) # Red Blood Count 5.31 M/UL (4.70-6.10) Hemoglobin 13.5 G/DL (14.2-18.0) L Hematocrit 43.4 % (42.0-52.0) Mean Corpuscular Volume 82 FL (80-99) Mean Corpuscular Hemoglobin 25.3 PG (27.0-31.0) L Mean Corpuscular Hemoglobin Concent 31.0 G/DL (32.0-36.0) L Red Cell Distribution Width 17.0 % (11.6-14.8) H Platelet Count 231 K/UL (150-450) Mean Platelet Volume 6.9 FL (6.5-10.1) Neutrophils (%) (Auto) % (45.0-75.0) Lymphocytes (%) (Auto) % (20.0-45.0) Monocytes (%) (Auto) % (1.0-10.0) Eosinophils (%) (Auto) % (0.0-3.0) Basophils (%) (Auto) % (0.0-2.0) Chemistry Test 12/08/16 03:25 12/08/16 06:19 Sodium Level 140 mEQ/L (135-145) Potassium Level 3.7 mEQ/L (3.4-4.9) Chloride Level 98 mEQ/L (98-107) Carbon Dioxide Level 25 mEQ/L (20-30) Anion Gap 17 (5-15) H Blood Urea Nitrogen 37 mg/dL (7-23) H Creatinine 1.0 mg/dL (0.7-1.2) Estimat Glomerular Filtration Rate > 60 mL/min (>60) Glucose Level 120 mg/dL (74-106) H Plasma/Serum Osmolality Pending Pending Uric Acid 7.1 mg/dL (3.0-7.5) Calcium Level 8.2 mg/dL (8.6-10.2) L Phosphorus Level 3.4 mg/dL (2.5-4.8) Magnesium Level 2.0 mg/dL (1.7-2.5) Total Bilirubin 0.8 mg/dL (0.0-1.2) Aspartate Amino Transf (AST/SGOT) 55 U/L (5-40) H Alanine Aminotransferase (ALT/SGPT) 19 U/L (3-41) Alkaline Phosphatase 109 U/L (40-129) Total Creatine Kinase 687 U/L (38-174) H Total Protein 6.7 g/dL (6.6-8.7) Albumin 3.0 g/dL (3.5-5.2) L Globulin 3.7 g/dL Albumin/Globulin Ratio 0.8 (1.0-2.7) L Thyroid Stimulating Hormone (TSH) 0.393 uIU/mL (0.300-4.500) Free Thyroxine 1.04 ng/dL (0.86-1.85) Free Triiodothyronine Pending Cortisol Pending Risk Assessment & Plan Assessment: ASA III Plan: MAC Status Change Before Surgery: Yes - Patient will not require procedure at this time, therefore postponed Pre-Antibiotics Drug: N/A VENKAT EVANS M.D. Dec 08, 2016 08:42
[2016-12-08] MEDS: Aspirin Baby 81mg ORAL SCH (08:47)
[2016-12-08] MEDS: Theophylline ER 100mg ORAL SCH ×2 (08:47→21:28)
[2016-12-08] MEDS: Heparin 5000 units/ml inj SUBQ SCH ×2 (08:49→21:31)
[2016-12-08] MEDS ORDERED: Aspirin Baby 81mg ORAL SCH (09:00)
--- NOTE | 2016-12-08 09:20 | General Progress Note ---
Assessment/Plan Status: stable Assessment/Plan 1. Non-hypoxemic respiratory distress. 2. Chronic obstructive pulmonary disease exacerbation. 3. HIV- Non compliant with medication 3. Congestive heart failure exacerbation. 4. Abnormal EKG possibility of acute coronary syndrome cannot be excluded. 5. Substance abuse (positive for amphetamine). 6. Leukopenia. 7. Hypercoagulation state likely secondary to congestive heart failure. 8. Proteinuria. 9. PAH Plan: Cardiology, Pulmonary and ID- Notes are reviewed current management Subjective ROS Limited/Unobtainable: No Respiratory: Reports: shortness of breath Gastrointestinal/Abdominal: Reports: no symptoms Allergies: Coded Allergies: No Known Allergies (Unverified , 12/05/16) Objective Last 24 Hour Vital Signs Date Time Temp Pulse Resp B/P Pulse Ox O2 Delivery O2 Flow Rate FiO2 12/08/16 08:47 125/91 12/08/16 08:00 115 12/08/16 08:00 96.1 118 20 125/91 98 Venturi Mask 40 12/08/16 07:43 Venturi Mask 8.0 40 12/08/16 07:42 98 Venturi Mask 40 12/08/16 07:42 118 20 Venturi Mask 40 12/08/16 05:03 115 112/85 12/08/16 04:00 96.7 128 20 107/81 94 Venturi Mask 12/08/16 04:00 113 12/08/16 00:00 97.9 84 20 116/90 Venturi Mask 12/08/16 00:00 112 12/07/16 22:00 108 98/68 12/07/16 20:47 112/82 12/07/16 20:00 96.1 107 20 112/82 94 Venturi Mask 12/07/16 20:00 105 12/07/16 19:02 98 Venturi Mask 40 12/07/16 19:02 Venturi Mask 40 12/07/16 19:02 89 20 Venturi Mask 40 12/07/16 17:27 118/77 12/07/16 17:00 105 12/07/16 16:00 97.6 117 20 98/66 95 Venturi Mask 50 12/07/16 13:08 108/70 12/07/16 13:08 108 108/70 12/07/16 12:00 97.6 110 20 106/86 99 Venturi Mask 50 12/07/16 11:46 106 Intake and Output 12/07/16 12/08/16 19:00 07:00 Intake Total 100 ml Balance 100 ml IV Total 100 ml # Voids 3 3 Laboratory Tests 12/08/16 03:25: White Blood Count 9.3#, Red Blood Count 5.31, Hemoglobin 13.5L, Hematocrit 43.4 , Mean Corpuscular Volume 82, Mean Corpuscular Hemoglobin 25.3L, Mean Corpuscular Hemoglobin Concent 31.0L, Red Cell Distribution Width 17.0H, Platelet Count 231, Mean Platelet Volume 6.9, Neutrophils (%) (Auto) , Lymphocytes (%) (Auto) , Monocytes (%) (Auto) , Eosinophils (%) (Auto) , Basophils (%) (Auto) , Sodium Level 140, Potassium Level 3.7, Chloride Level 98 , Carbon Dioxide Level 25, Anion Gap 17H, Blood Urea Nitrogen 37H, Creatinine 1.0, Estimat Glomerular Filtration Rate > 60, Glucose Level 120H, Plasma/Serum Osmolality [Pending], Uric Acid 7.1, Calcium Level 8.2L, Phosphorus Level 3.4, Magnesium Level 2.0, Total Bilirubin 0.8, Aspartate Amino Transf (AST/SGOT) 55H , Alanine Aminotransferase (ALT/SGPT) 19, Alkaline Phosphatase 109, Total Creatine Kinase 687H, Total Protein 6.7, Albumin 3.0L, Globulin 3.7, Albumin/ Globulin Ratio 0.8L, Thyroid Stimulating Hormone (TSH) 0.393, Free Thyroxine 1.04, Free Triiodothyronine [Pending], Cortisol [Pending] 12/08/16 06:19: Plasma/Serum Osmolality [Pending] Height (Feet): 5 Height (Inches): 7.00 Weight (Pounds): 152 General Appearance: no apparent distress EENT: PERRL/EOMI Neck: supple Cardiovascular: normal rate Respiratory/Chest: rhonchi - bilaterally Abdomen: soft Extremities: non-tender 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
[2016-12-08] MEDS ORDERED: Morphine Sulfate 2mg/ml Inj IV PRN (09:30)
--- NOTE | 2016-12-08 09:57 | Infectious Diseases Prog Note ---
Assessment/Plan Assessment/Plan ASSESSMENT: 56 y/o male with: // HIV / AIDS, on unknown HAART - CD4 <200 per self report, does not take any ABX prophy // Leukopenia, SP // afebrile // Bronchitis vs CAP cough has improved // Acute respiratory distress / hypoxia - refused ABG // COPD exacerbation // CHF exacerbation // ARF - Cr 1.1-->1.4 // Elevated LFTs // Coagulopathy - INR 2.7 ?etiology // DM2 - HbA1c 7.1% // Polysubstance abuse ( meth, cocaine ) // NKDA // Full Code PLAN: - continue levaquin d# 3 / 5 , ok to DC from ID stand point with cont of oral Levaquin - resume HAART as out pt , will start prophylaxis after the CD4 is back - check LDH, legionella UAg, d-dimer, CD4 - taper steroids per pulm - diuresis - monitor CBC, temperatures - monitor BMP - monitor CXR - respiratory support Subjective Constitutional: Denies: anorexia, chills, drenching sweats, fatigue, fever, no symptoms, other Allergies: Coded Allergies: No Known Allergies (Unverified , 12/05/16) Objective Vital Signs Last 24 Hour Vital Signs Date Time Temp Pulse Resp B/P Pulse Ox O2 Delivery O2 Flow Rate FiO2 12/08/16 08:47 125/91 12/08/16 08:00 115 12/08/16 08:00 96.1 118 20 125/91 98 Venturi Mask 40 12/08/16 07:43 Venturi Mask 8.0 40 12/08/16 07:42 98 Venturi Mask 40 12/08/16 07:42 118 20 Venturi Mask 40 12/08/16 05:03 115 112/85 12/08/16 04:00 96.7 128 20 107/81 94 Venturi Mask 12/08/16 04:00 113 12/08/16 00:00 97.9 84 20 116/90 Venturi Mask 12/08/16 00:00 112 12/07/16 22:00 108 98/68 12/07/16 20:47 112/82 12/07/16 20:00 96.1 107 20 112/82 94 Venturi Mask 12/07/16 20:00 105 12/07/16 19:02 98 Venturi Mask 40 12/07/16 19:02 Venturi Mask 40 12/07/16 19:02 89 20 Venturi Mask 40 12/07/16 17:27 118/77 12/07/16 17:00 105 12/07/16 16:00 97.6 117 20 98/66 95 Venturi Mask 50 12/07/16 13:08 108/70 12/07/16 13:08 108 108/70 12/07/16 12:00 97.6 110 20 106/86 99 Venturi Mask 50 12/07/16 11:46 106 Height (Feet): 5 Height (Inches): 7.00 Weight (Pounds): 152 HEENT: atraumatic Respiratory/Chest: normal breath sounds Cardiovascular: regularly irregular Abdomen: no mass Laboratory Tests Test 12/08/16 03:25 12/08/16 06:19 White Blood Count 9.3 K/UL (4.8-10.8) # Red Blood Count 5.31 M/UL (4.70-6.10) Hemoglobin 13.5 G/DL (14.2-18.0) L Hematocrit 43.4 % (42.0-52.0) Mean Corpuscular Volume 82 FL (80-99) Mean Corpuscular Hemoglobin 25.3 PG (27.0-31.0) L Mean Corpuscular Hemoglobin Concent 31.0 G/DL (32.0-36.0) L Red Cell Distribution Width 17.0 % (11.6-14.8) H Platelet Count 231 K/UL (150-450) Mean Platelet Volume 6.9 FL (6.5-10.1) Neutrophils (%) (Auto) % (45.0-75.0) Lymphocytes (%) (Auto) % (20.0-45.0) Monocytes (%) (Auto) % (1.0-10.0) Eosinophils (%) (Auto) % (0.0-3.0) Basophils (%) (Auto) % (0.0-2.0) Sodium Level 140 mEQ/L (135-145) Potassium Level 3.7 mEQ/L (3.4-4.9) Chloride Level 98 mEQ/L (98-107) Carbon Dioxide Level 25 mEQ/L (20-30) Anion Gap 17 (5-15) H Blood Urea Nitrogen 37 mg/dL (7-23) H Creatinine 1.0 mg/dL (0.7-1.2) Estimat Glomerular Filtration Rate > 60 mL/min (>60) Glucose Level 120 mg/dL (74-106) H Plasma/Serum Osmolality Pending Pending Uric Acid 7.1 mg/dL (3.0-7.5) Calcium Level 8.2 mg/dL (8.6-10.2) L Phosphorus Level 3.4 mg/dL (2.5-4.8) Magnesium Level 2.0 mg/dL (1.7-2.5) Total Bilirubin 0.8 mg/dL (0.0-1.2) Aspartate Amino Transf (AST/SGOT) 55 U/L (5-40) H Alanine Aminotransferase (ALT/SGPT) 19 U/L (3-41) Alkaline Phosphatase 109 U/L (40-129) Total Creatine Kinase 687 U/L (38-174) H Total Protein 6.7 g/dL (6.6-8.7) Albumin 3.0 g/dL (3.5-5.2) L Globulin 3.7 g/dL Albumin/Globulin Ratio 0.8 (1.0-2.7) L Thyroid Stimulating Hormone (TSH) 0.393 uIU/mL (0.300-4.500) Free Thyroxine 1.04 ng/dL (0.86-1.85) Free Triiodothyronine Pending Cortisol Pending Current Medications Medications (Trade) Dose Ordered Sig/Rocio Route PRN Reason Start Time Stop Time Status Last Admin Dose Admin Acetaminophen (Tylenol) 650 mg Q6H PRN ORAL Mild Pain (Pain Scale 1-3) 12/08/16 09:30 01/07/17 09:29 Albuterol/ Ipratropium (DuoNeb 0.5-3(2.5)mg/3ml) 3 ml Q4H PRN HHN Shortness of Breath 12/08/16 08:00 12/13/16 07:59 Aspirin (ASA) 81 mg DAILY ORAL 12/08/16 09:00 01/07/17 08:59 12/08/16 08:47 Atorvastatin Calcium (Lipitor) 20 mg BEDTIME ORAL 12/08/16 21:00 01/07/17 20:59 Dextrose (Dextrose 50%) STAT PRN IV Hypoglycemia 12/08/16 09:30 01/07/17 09:29 Diltiazem HCl (Cardizem) 30 mg EVERY 8 HOURS ORAL 12/08/16 14:00 01/07/17 13:59 Heparin Sodium (Porcine) (Heparin 5000 units/ml) 5,000 units EVERY 12 HOURS SUBQ 12/08/16 09:00 01/07/17 08:59 12/08/16 08:49 Isosorbide Dinitrate (Isordil) 10 mg QID ORAL 12/08/16 09:00 01/07/17 08:59 12/08/16 08:47 Levofloxacin (Levaquin) 100 ml @ 100 mls/hr Q24H IVPB 12/08/16 13:00 12/15/16 12:59 Methylprednisolone Sodium Succinate (Solu-MEDROL) 60 mg EVERY 6 HOURS IV 12/08/16 12:00 01/07/17 11:59 Morphine Sulfate (Morphine Sulfate) 2 mg Q8H PRN IV Moderate Pain (Pain Scale 4-6) 12/08/16 09:30 12/15/16 09:29 Nitroglycerin (Ntg) 0.4 mg Q5M PRN SL Prn Chest Pain 12/08/16 05:45 01/07/17 05:44 Theophylline (Hector-Dur) 100 mg EVERY 12 HOURS ORAL 12/08/16 09:00 01/07/17 08:59 12/08/16 08:47 DEMETRIA GILBERT M.D. Dec 08, 2016 09:57
[2016-12-08 10:16] LABS: APPEARANCE,URINE CLEAR; KETONES,URINE NEGATIVE (NEGATIVE); LEUKOCYTE ESTERASE ,URINE NEGATIVE (NEGATIVE); NITRITE,URINE NEGATIVE (NEGATIVE); PH,URINE 6 (4.5-8.0); PROTEIN,URINE 2+ (NEGATIVE); UROBILINOGEN,URINE 1 MG/DL (0.0-1.0)
[2016-12-08 10:46] LABS: BACTERIA,URINE OCCASIONAL /HPF; RBC,URINE 0-2 /HPF (0 - 0); SQUAMOUS EPITHELIAL CELL,UR OCCASIONAL /LPF (NONE/OCC); WBC,URINE 0-2 /HPF (0 - 0)
[2016-12-08 11:36] VITALS: BP 97/67
--- NOTE | 2016-12-08 14:00 | Cardiology Progress Note ---
Assessment/Plan Assessment/Plan 1. DCM with LVEF at 10%, need to find out of RHC/LHC has been done in the apst. 2. Amphetamine abuse 3. Acute systolic CHF, start coreg, DC Diltiazem, increase Isordil, requires optimal GDMT. Will add aldactone and ACEI if BP allows. Subjective Subjective Atrial tachycardia at 114. Objective Last 24 Hour Vital Signs Date Time Temp Pulse Resp B/P Pulse Ox O2 Delivery O2 Flow Rate FiO2 12/08/16 12:07 97/67 12/08/16 11:36 96.6 110 20 97/67 92 Room Air 12/08/16 08:47 125/91 12/08/16 08:00 115 12/08/16 08:00 96.1 118 20 125/91 98 Venturi Mask 40 12/08/16 07:43 Venturi Mask 8.0 40 12/08/16 07:42 98 Venturi Mask 40 12/08/16 07:42 118 20 Venturi Mask 40 12/08/16 05:03 115 112/85 12/08/16 04:00 96.7 128 20 107/81 94 Venturi Mask 12/08/16 04:00 113 12/08/16 00:00 97.9 84 20 116/90 Venturi Mask 12/08/16 00:00 112 12/07/16 22:00 108 98/68 12/07/16 20:47 112/82 12/07/16 20:00 96.1 107 20 112/82 94 Venturi Mask 12/07/16 20:00 105 12/07/16 19:02 98 Venturi Mask 40 12/07/16 19:02 Venturi Mask 40 12/07/16 19:02 89 20 Venturi Mask 40 12/07/16 17:27 118/77 12/07/16 17:00 105 12/07/16 16:00 97.6 117 20 98/66 95 Venturi Mask 50 Intake and Output 12/07/16 12/08/16 19:00 07:00 Intake Total 100 ml Balance 100 ml IV Total 100 ml # Voids 3 3 2D Echo: Four Chamber DCM LVEF 10%, Global LV akinesia except posterior wall with HK Laboratory Tests Test 12/08/16 03:25 12/08/16 06:19 12/08/16 10:00 White Blood Count 9.3 K/UL (4.8-10.8) # Red Blood Count 5.31 M/UL (4.70-6.10) Hemoglobin 13.5 G/DL (14.2-18.0) L Hematocrit 43.4 % (42.0-52.0) Mean Corpuscular Volume 82 FL (80-99) Mean Corpuscular Hemoglobin 25.3 PG (27.0-31.0) L Mean Corpuscular Hemoglobin Concent 31.0 G/DL (32.0-36.0) L Red Cell Distribution Width 17.0 % (11.6-14.8) H Platelet Count 231 K/UL (150-450) Mean Platelet Volume 6.9 FL (6.5-10.1) Neutrophils (%) (Auto) % (45.0-75.0) Lymphocytes (%) (Auto) % (20.0-45.0) Monocytes (%) (Auto) % (1.0-10.0) Eosinophils (%) (Auto) % (0.0-3.0) Basophils (%) (Auto) % (0.0-2.0) Sodium Level 140 mEQ/L (135-145) Potassium Level 3.7 mEQ/L (3.4-4.9) Chloride Level 98 mEQ/L (98-107) Carbon Dioxide Level 25 mEQ/L (20-30) Anion Gap 17 (5-15) H Blood Urea Nitrogen 37 mg/dL (7-23) H Creatinine 1.0 mg/dL (0.7-1.2) Estimat Glomerular Filtration Rate > 60 mL/min (>60) Glucose Level 120 mg/dL (74-106) H Plasma/Serum Osmolality Pending Pending Uric Acid 7.1 mg/dL (3.0-7.5) Calcium Level 8.2 mg/dL (8.6-10.2) L Phosphorus Level 3.4 mg/dL (2.5-4.8) Magnesium Level 2.0 mg/dL (1.7-2.5) Total Bilirubin 0.8 mg/dL (0.0-1.2) Aspartate Amino Transf (AST/SGOT) 55 U/L (5-40) H Alanine Aminotransferase (ALT/SGPT) 19 U/L (3-41) Alkaline Phosphatase 109 U/L (40-129) Total Creatine Kinase 687 U/L (38-174) H Total Protein 6.7 g/dL (6.6-8.7) Albumin 3.0 g/dL (3.5-5.2) L Globulin 3.7 g/dL Albumin/Globulin Ratio 0.8 (1.0-2.7) L Thyroid Stimulating Hormone (TSH) 0.393 uIU/mL (0.300-4.500) Free Thyroxine 1.04 ng/dL (0.86-1.85) Free Triiodothyronine Pending Cortisol Pending Urine Color Pale yellow Urine Appearance Clear Urine pH 6 (4.5-8.0) Urine Specific [place] 1.020 (1.005-1.035) Urine Protein 2+ (NEGATIVE) H Urine Glucose (UA) Negative (NEGATIVE) Urine Ketones Negative (NEGATIVE) Urine Occult Blood Negative (NEGATIVE) Urine Nitrite Negative (NEGATIVE) Urine Bilirubin Negative (NEGATIVE) Urine Urobilinogen 1 MG/DL (0.0-1.0) H Urine Leukocyte Esterase Negative (NEGATIVE) Urine RBC 0-2 /HPF (0 - 0) H Urine WBC 0-2 /HPF (0 - 0) Urine Squamous Epithelial Cells Occasional /LPF Urine Bacteria Occasional /HPF (NONE) Urine Eosinophils None seen Urine Osmolality Pending Urine Random Chloride 25 mmol/L Urine Potassium Timed 23 mmol/L Objective HEENT: Atraumatic and normocephalic. Anicteric. Pupils are equal, round, and reactive to light and accommodation. Extraocular muscles are intact. He has got diaphoresis. NECK: JVP is elevated at about 12 cm and no carotid bruits. Carotid upstrokes 2+ bilaterally. CARDIOVASCULAR: Normal S1, S2. Regular rate and rhythm. Tachycardic. Cannot appreciate any murmurs, gallops, or rubs. LUNGS: Diminished breath sounds throughout. There is some scattered rhonchi bilaterally. He did not hear any crackles. ABDOMEN: Soft, nontender, and nondistended. No hepatosplenomegaly. Positive bowel sounds. EXTREMITIES: No evidence of edema, clubbing, or cyanosis. RENATA BEAN Dec 08, 2016 14:00
[2016-12-08] MEDS ORDERED: Digoxin 0.5mg/2ml Inj IVP ONE ×2 (14:15→20:00)
[2016-12-08] MEDS: Lisinopril 2.5mg tab ORAL SCH (14:39)
--- NOTE | 2016-12-08 14:47 | Pulmonology Progress Note ---
Assessment/Plan Problems: (1) Acute respiratory failure (2) Bullous emphysema (3) EF 20% (4) Emphysema lung (5) HIV disease Assessment/Plan CT chest reviewed, extensive bullous disease, maida, RUL optimize cardiac meds, add ANDREAS and Aldactone abx as per ID might go to lower level all notes reviewed Subjective ROS Limited/Unobtainable: No Constitutional: Reports: no symptoms HEENT: Repors: no symptoms Respiratory: Reports: no symptoms Allergies: Coded Allergies: No Known Allergies (Unverified , 12/05/16) Objective Last 24 Hour Vital Signs Date Time Temp Pulse Resp B/P Pulse Ox O2 Delivery O2 Flow Rate FiO2 12/08/16 14:40 110 97/12/08/16 14:39 9712/08/16 14:39 110 12/08/16 12:07 9712/08/16 11:36 96.6 110 20 97/67 92 Room Air 12/08/16 08:47 125/91 12/08/16 08:00 115 12/08/16 08:00 96.1 118 20 125/91 98 Venturi Mask 40 12/08/16 07:43 Venturi Mask 8.0 40 12/08/16 07:42 98 Venturi Mask 40 12/08/16 07:42 118 20 Venturi Mask 40 12/08/16 05:03 115 112/85 12/08/16 04:00 96.7 128 20 107/81 94 Venturi Mask 12/08/16 04:00 113 12/08/16 00:00 97.9 84 20 116/90 Venturi Mask 12/08/16 00:00 112 12/07/16 22:00 108 98/68 12/07/16 20:47 112/82 12/07/16 20:00 96.1 107 20 112/82 94 Venturi Mask 12/07/16 20:00 105 12/07/16 19:02 98 Venturi Mask 40 12/07/16 19:02 Venturi Mask 40 12/07/16 19:02 89 20 Venturi Mask 40 12/07/16 17:27 118/77 12/07/16 17:00 105 12/07/16 16:00 97.6 117 20 98/66 95 Venturi Mask 50 Intake and Output 12/07/16 12/08/16 19:00 07:00 Intake Total 100 ml Balance 100 ml IV Total 100 ml # Voids 3 3 General Appearance: WD/WN HEENT: normocephalic, atraumatic Respiratory/Chest: chest wall non-tender, lungs clear Cardiovascular: normal peripheral pulses, normal rate Abdomen: normal bowel sounds, soft, non tender Genitourinary: normal external genitalia Extremities: no clubbing Neurologic/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: 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-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 grossly normal Laboratory Tests 12/08/16 03:25: White Blood Count 9.3#, Red Blood Count 5.31, Hemoglobin 13.5L, Hematocrit 43.4 , Mean Corpuscular Volume 82, Mean Corpuscular Hemoglobin 25.3L, Mean Corpuscular Hemoglobin Concent 31.0L, Red Cell Distribution Width 17.0H, Platelet Count 231, Mean Platelet Volume 6.9, Neutrophils (%) (Auto) , Lymphocytes (%) (Auto) , Monocytes (%) (Auto) , Eosinophils (%) (Auto) , Basophils (%) (Auto) , Sodium Level 140, Potassium Level 3.7, Chloride Level 98 , Carbon Dioxide Level 25, Anion Gap 17H, Blood Urea Nitrogen 37H, Creatinine 1.0, Estimat Glomerular Filtration Rate > 60, Glucose Level 120H, Plasma/Serum Osmolality [Pending], Uric Acid 7.1, Calcium Level 8.2L, Phosphorus Level 3.4, Magnesium Level 2.0, Total Bilirubin 0.8, Aspartate Amino Transf (AST/SGOT) 55H , Alanine Aminotransferase (ALT/SGPT) 19, Alkaline Phosphatase 109, Total Creatine Kinase 687H, Total Protein 6.7, Albumin 3.0L, Globulin 3.7, Albumin/ Globulin Ratio 0.8L, Thyroid Stimulating Hormone (TSH) 0.393, Free Thyroxine 1.04, Free Triiodothyronine [Pending], Cortisol [Pending] 12/08/16 06:19: Plasma/Serum Osmolality [Pending] 12/08/16 10:00: Urine Color Pale yellow, Urine Appearance Clear, Urine pH 6, Urine Specific [place] 1.020, Urine Protein 2+H, Urine Glucose (UA) Negative, Urine Ketones Negative, Urine Occult Blood Negative, Urine Nitrite Negative, Urine Bilirubin Negative, Urine Urobilinogen 1H, Urine Leukocyte Esterase Negative, Urine RBC 0- 2H, Urine WBC 0-2, Urine Squamous Epithelial Cells Occasional, Urine Bacteria Occasional, Urine Eosinophils None seen, Urine Osmolality [Pending], Urine Random Chloride 25, Urine Potassium Timed 23, Urine Legionella Antigen [Pending] Current Medications Medications (Trade) Dose Ordered Sig/Rocio Route PRN Reason Start Time Stop Time Status Last Admin Dose Admin Acetaminophen (Tylenol) 650 mg Q6H PRN ORAL Mild Pain (Pain Scale 1-3) 12/08/16 09:30 01/07/17 09:29 Albuterol/ Ipratropium (DuoNeb 0.5-3(2.5)mg/3ml) 3 ml Q4H PRN HHN Shortness of Breath 12/08/16 08:00 12/13/16 07:59 Aspirin (ASA) 81 mg DAILY ORAL 12/08/16 09:00 01/07/17 08:59 12/08/16 08:47 Atorvastatin Calcium (Lipitor) 20 mg BEDTIME ORAL 12/08/16 21:00 01/07/17 20:59 Carvedilol (Coreg) 3.125 mg EVERY 12 HOURS ORAL 12/08/16 14:30 01/07/17 14:29 12/08/16 14:40 Dextrose (Dextrose 50%) STAT PRN IV Hypoglycemia 12/08/16 09:30 01/07/17 09:29 Digoxin (Lanoxin) 0.25 mg ONCE ONCE IVP 12/08/16 20:00 12/08/16 20:01 Heparin Sodium (Porcine) (Heparin 5000 units/ml) 5,000 units EVERY 12 HOURS SUBQ 12/08/16 09:00 01/07/17 08:59 12/08/16 08:49 Isosorbide Dinitrate (Isordil) 20 mg QID ORAL 12/08/16 18:00 01/07/17 17:59 Levofloxacin (Levaquin) 100 ml @ 100 mls/hr Q24H IVPB 12/08/16 13:00 12/15/16 12:59 12/08/16 12:07 Lisinopril (Zestril) 2.5 mg DAILY ORAL 12/08/16 15:00 01/07/17 14:59 12/08/16 14:39 Methylprednisolone Sodium Succinate (Solu-MEDROL) 60 mg EVERY 6 HOURS IV 6/12/17 12:00 01/07/17 11:59 12/08/16 12:07 Morphine Sulfate (Morphine Sulfate) 2 mg Q8H PRN IV Moderate Pain (Pain Scale 4-6) 12/08/16 09:30 12/15/16 09:29 Nitroglycerin (Ntg) 0.4 mg Q5M PRN SL Prn Chest Pain 12/08/16 05:45 01/07/17 05:44 Theophylline (Hector-Dur) 100 mg EVERY 12 HOURS ORAL 12/08/16 09:00 01/07/17 08:59 12/08/16 08:47 DALLIN LORD Dec 08, 2016 14:47
[2016-12-08 15:32] VITALS: BP 116/78
[2016-12-08 20:14] VITALS: BP 111/69
[2016-12-08] MEDS ORDERED: Atorvastatin 20mg tab ORAL SCH (21:00)
[2016-12-09 00:08] VITALS: BP 119/79
[2016-12-09 02:12] LABS: CD3 ABSOLUTE 359 /uL (622-2402); CD4 ABSOLUTE 103 /uL (359-1519); CD8 ABSOLUTE 263 /uL (109-897); LYMPHOCYTES ABSOLUTE 0.6 x10E3/uL (0.7-3.1); LYMPHS 16 % (.); WBC 3.6 x10E3/uL (3.4-10.8)
[2016-12-09 03:54] VITALS: BP 122/75
[2016-12-09] MEDS: Solu-MEDROL 125mg Inj IV SCH ×3 (06:00→12:00)
[2016-12-09 08:00] VITALS: BP 120/73
[2016-12-09 08:12] LABS: CORTISOL LC 20.4 ug/dL (.)
[2016-12-09] MEDS: Theophylline ER 100mg ORAL SCH (09:20)
[2016-12-09] MEDS: Aspirin Baby 81mg ORAL SCH (09:20)
[2016-12-09] MEDS: Lisinopril 2.5mg tab ORAL SCH (09:20)
[2016-12-09] MEDS: Heparin 5000 units/ml inj SUBQ SCH (09:22)
--- NOTE | 2016-12-09 09:54 | Diagnostic Imaging Report ---
Clinical Indication: DYSPNEA, acute respiratory failure, congestive heart failure, history of emphysema Technique: IV administration nonionic contrast. Spiral acquisition obtained through the chest. Multiplanar reconstructions generated. Total dose length product 759 mGycm. CTDIvol(s) 8, 129, 16 mGy. Dose reduction achieved using automated exposure control Comparison: None Findings: Multiple large bullae are seen in the right upper lobe. Less extensive bullous changes and hyperinflation are seen involving the left upper lobe. Areas of linear parenchymal scarring are seen in the upper lobes bilaterally. There is also some peripheral scarring or atelectasis involving the right middle lobe, right lower lobe, and lingula. There is trace pleural fluid bilaterally. No infiltrates, masses, or nodules. A few small bullae are seen at the lung bases. The heart is enlarged. There is no evidence of pericardial effusion. No mediastinal or hilar mass or adenopathy. The included thyroid is unremarkable. No axillary or chest wall mass or adenopathy. The bones are unremarkable. The included upper abdominal anatomy is unremarkable for the presence of a small amount of ascites fluid. Granulomatous calcifications are seen scattered throughout the spleen. Impression: Evidence of bullous COPD No definite acute pulmonary process Areas of pulmonary parenchymal scarring and atelectasis as described Trace bilateral pleural fluid Cardiomegaly Small amount of ascites fluid Splenic granulomatous calcifications. The CT scanner at [facility] is accredited by the [employer] and the scans are performed using protocols designed to limit radiation exposure to as low as reasonably achievable to attain images of sufficient resolution adequate for diagnostic evaluation.
--- NOTE | 2016-12-09 09:56 | Diagnostic Imaging Report ---
Indication: SOB Technique: One view of the chest Comparison: 12/05/2016 Findings: The heart is enlarged. There are multiple atelectatic bands in the left lung. Scarring and bullous changes are seen in the right upper lobe. No definite infiltrates. Equivocal slight blunting of the left costophrenic sulcus, small effusion not completely excludable. Impression: Cardiomegaly Possible small left pleural effusion No acute process otherwise COPD changes
--- NOTE | 2016-12-09 10:07 | General Progress Note ---
Assessment/Plan Status: stable Assessment/Plan 1. Non-hypoxemic respiratory distress. 2. Chronic obstructive pulmonary disease exacerbation. 3. HIV- Non compliant with medication 3. Congestive heart failure exacerbation- EF 25% 4. Abnormal EKG , No evidence of active acute CS 5. Substance abuse (positive for amphetamine). 6. Leukopenia. 7. Hypercoagulation state likely secondary to congestive heart failure. 8. Proteinuria. 9. PAH Plan: Cardiology, Pulmonary and ID- Notes are reviewed I had a detailed conversation about compliance with medication and followup with PCP as outpatient. he agreed Once agreed by Pulmonary and Cardiology services may be followup as out patient Subjective ROS Limited/Unobtainable: No Constitutional: Reports: no symptoms HEENT: Reports: no symptoms Cardiovascular: Reports: no symptoms Allergies: Coded Allergies: No Known Allergies (Unverified , 12/05/16) Objective Last 24 Hour Vital Signs Date Time Temp Pulse Resp B/P Pulse Ox O2 Delivery O2 Flow Rate FiO2 12/09/16 09:20 120/73 12/09/16 09:20 120/73 12/09/16 09:19 113 120/73 12/09/16 08:00 96.8 113 17 120/73 95 Room Air 12/09/16 07:53 Room Air 12/09/16 07:52 93 Room Air 21 12/09/16 07:51 116 18 Room Air 21 12/09/16 04:00 114 12/09/16 03:54 98.2 91 19 122/75 94 Venturi Mask 12/09/16 00:08 98.5 98 20 119/79 98 Room Air 12/09/16 00:00 118 12/08/16 23:32 98 119/79 12/08/16 21:29 118/70 12/08/16 20:14 98.8 108 21 111/69 97 Room Air 12/08/16 20:11 107 12/08/16 20:04 Venturi Mask 8.0 40 12/08/16 20:04 97 Venturi Mask 40 12/08/16 20:03 106 18 Venturi Mask 40 12/08/16 20:00 107 12/08/16 17:31 116/78 12/08/16 16:00 111 12/08/16 15:32 96.3 95 20 116/78 100 Venturi Mask 12/08/16 14:40 110 97/67 12/08/16 14:39 97/12/08/16 14:39 110 12/08/16 12:07 97/67 12/08/16 12:00 109 12/08/16 11:36 96.6 110 20 / 92 Room Air Intake and Output 12/08/16 12/09/16 19:00 07:00 Intake Total 720 ml Output Total 400 ml Balance 720 ml -400 ml Intake Oral 620 ml IV Total 100 ml Output Urine Total 400 ml # Voids 2 Height (Feet): 5 Height (Inches): 7.00 Weight (Pounds): 153 General Appearance: no apparent distress EENT: PERRL/EOMI Neck: supple Cardiovascular: normal rate Respiratory/Chest: crackles/rales Abdomen: soft Extremities: non-tender Neurologic: 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
--- NOTE | 2016-12-09 10:34 | Infectious Diseases Prog Note ---
Assessment/Plan Assessment/Plan ASSESSMENT: 56 y/o male with: // HIV / AIDS, on unknown HAART - CD4 : 103 // Leukopenia, SP // afebrile // Bronchitis vs CAP cough has improved CT: No definite acute pulmonary process // Acute respiratory distress / hypoxia - refused ABG // COPD exacerbation // CHF exacerbation // ARF - Cr 1.1-->1.4 // Elevated LFTs // Coagulopathy - INR 2.7 ?etiology // DM2 - HbA1c 7.1% // Polysubstance abuse ( meth, cocaine ) // NKDA // Full Code PLAN: - continue levaquin d# 4 / 5 , ok to DC from ID stand point with cont of oral Levaquin - resume HAART as out pt , will start on Bactrim ( PCP prophylaxis ) - monitor CBC, temperatures - monitor BMP - monitor CXR - respiratory support Subjective Constitutional: Denies: anorexia, chills, drenching sweats, fatigue, fever, no symptoms, other Allergies: Coded Allergies: No Known Allergies (Unverified , 12/05/16) Objective Vital Signs Last 24 Hour Vital Signs Date Time Temp Pulse Resp B/P Pulse Ox O2 Delivery O2 Flow Rate FiO2 12/09/16 09:20 120/73 12/09/16 09:20 120/73 12/09/16 09:19 113 120/73 12/09/16 08:00 96.8 113 17 120/73 95 Room Air 12/09/16 07:53 Room Air 12/09/16 07:52 93 Room Air 12/09/16 07:51 116 18 Room Air 12/09/16 04:00 114 12/09/16 03:54 98.2 91 19 122/75 94 Venturi Mask 12/09/16 00:08 98.5 98 20 119/79 98 Room Air 12/09/16 00:00 118 12/08/16 23:32 98 119/79 12/08/16 21:29 118/70 12/08/16 20:14 98.8 108 21 111/69 97 Room Air 12/08/16 20:11 107 12/08/16 20:04 Venturi Mask 8.0 40 12/08/16 20:04 97 Venturi Mask 40 12/08/16 20:03 106 18 Venturi Mask 40 12/08/16 20:00 107 12/08/16 17:31 116/78 12/08/16 16:00 111 12/08/16 15:32 96.3 95 20 116/78 100 Venturi Mask 12/08/16 14:40 110 97/67 12/08/16 14:39 97/67 12/08/16 14:39 110 12/08/16 12:07 97/67 12/08/16 12:00 109 12/08/16 11:36 96.6 110 20 97/67 92 Room Air Height (Feet): 5 Height (Inches): 7.00 Weight (Pounds): 153 HEENT: mucous membranes moist Respiratory/Chest: no respiratory distress Cardiovascular: regular rhythm Abdomen: non distended Current Medications Medications (Trade) Dose Ordered Sig/Rocio Route PRN Reason Start Time Stop Time Status Last Admin Dose Admin Acetaminophen (Tylenol) 650 mg Q6H PRN ORAL Mild Pain (Pain Scale 1-3) 12/08/16 09:30 01/07/17 09:29 12/08/16 21:58 Albuterol/ Ipratropium (DuoNeb 0.5-3(2.5)mg/3ml) 3 ml Q4H PRN HHN Shortness of Breath 12/08/16 08:00 12/13/16 07:59 Aspirin (ASA) 81 mg DAILY ORAL 12/08/16 09:00 01/07/17 08:59 12/09/16 09:20 Atorvastatin Calcium (Lipitor) 20 mg BEDTIME ORAL 12/08/16 21:00 01/07/17 20:59 12/08/16 21:29 Carvedilol (Coreg) 3.125 mg EVERY 12 HOURS ORAL 12/08/16 14:30 01/07/17 14:29 12/09/16 09:19 Dextrose (Dextrose 50%) STAT PRN IV Hypoglycemia 12/08/16 09:30 01/07/17 09:29 Heparin Sodium (Porcine) (Heparin 5000 units/ml) 5,000 units EVERY 12 HOURS SUBQ 12/08/16 09:00 01/07/17 08:59 12/09/16 09:22 Isosorbide Dinitrate (Isordil) 20 mg QID ORAL 12/08/16 18:00 01/07/17 17:59 12/09/16 09:20 Levofloxacin (Levaquin) 100 ml @ 100 mls/hr Q24H IVPB 12/08/16 13:00 12/15/16 12:59 12/08/16 12:07 Lisinopril (Zestril) 2.5 mg DAILY ORAL 12/08/16 15:00 01/07/17 14:59 12/09/16 09:20 Methylprednisolone Sodium Succinate (Solu-MEDROL) 60 mg EVERY 6 HOURS IV 12/08/16 12:00 01/07/17 11:59 12/08/16 17:31 Morphine Sulfate (Morphine Sulfate) 2 mg Q8H PRN IV Moderate Pain (Pain Scale 4-6) 12/08/16 09:30 12/15/16 09:29 Nitroglycerin (Ntg) 0.4 mg Q5M PRN SL Prn Chest Pain 12/08/16 05:45 01/07/17 05:44 Theophylline (Hector-Dur) 100 mg EVERY 12 HOURS ORAL 12/08/16 09:00 01/07/17 08:59 12/09/16 09:20 DEMETRIA GILBERT M.D. Dec 09, 2016 10:34
[2016-12-09 12:00] VITALS: BP 146/77
[2016-12-09] MEDS ORDERED: Bactrim DS (160mg/800mg) tab ORAL SCH (12:00)
[2016-12-09] MEDS ORDERED: LISINOPRIL10 MG ORAL (13:10)
[2016-12-09 13:58] LABS: OTHERS PATHOLOGIST COMMENT
--- NOTE | 2016-12-09 18:13 | Cardiology Report ---
APPROVED REPORT EKG Measurement Heart [id number] Sinus tachycardia Possible Left atrial enlargement Left ventricular hypertrophy Inferior infarct, age undetermined T wave abnormality, consider lateral ischemia Abnormal ECG
--- NOTE | 2016-12-09 18:24 | Cardiology Report ---
APPROVED REPORT EKG Measurement Heart [id number] Sinus tachycardia Nonspecific T wave abnormality Abnormal ECG
--- NOTE | 2016-12-09 19:31 | Pulmonology Progress Note ---
Assessment/Plan Problems: (1) Acute respiratory failure (2) Bullous emphysema (3) EF 20% (4) Emphysema lung (5) HIV disease Assessment/Plan CT chest reviewed, extensive bullous disease, maida, RUL optimize cardiac meds, add ANDREAS and Aldactone abx as per ID might go to lower level all notes reviewed ok to dc home poor prognosis Subjective ROS Limited/Unobtainable: No Interval Events: was seen earlier Allergies: Coded Allergies: No Known Allergies (Unverified , 12/05/16) Objective Last 24 Hour Vital Signs Date Time Temp Pulse Resp B/P Pulse Ox O2 Delivery O2 Flow Rate FiO2 12/09/16 12:00 96.9 118 17 146/77 100 Room Air 12/09/16 11:37 117 12/09/16 09:20 120/73 12/09/16 09:20 120/73 12/09/16 09:19 113 120/73 12/09/16 08:00 96.8 113 17 120/73 95 Room Air 12/09/16 07:53 Room Air 12/09/16 07:52 93 Room Air 21 12/09/16 07:51 116 18 Room Air 21 12/09/16 07:50 111 12/09/16 04:00 114 12/09/16 03:54 98.2 91 19 122/75 94 Venturi Mask 12/09/16 00:08 98.5 98 20 119/79 98 Room Air 12/09/16 00:00 118 12/08/16 23:32 98 119/79 12/08/16 21:29 118/70 12/08/16 20:14 98.8 108 21 111/69 97 Room Air 12/08/16 20:11 107 12/08/16 20:04 Venturi Mask 8.0 40 12/08/16 20:04 97 Venturi Mask 40 12/08/16 20:03 106 18 Venturi Mask 40 12/08/16 20:00 107 Intake and Output 12/08/16 12/09/16 19:00 07:00 Intake Total 720 ml Output Total 400 ml Balance 720 ml -400 ml Intake Oral 620 ml IV Total 100 ml Output Urine Total 400 ml # Voids 2 General Appearance: WD/WN HEENT: normocephalic, atraumatic Respiratory/Chest: chest wall non-tender, lungs clear Cardiovascular: normal peripheral pulses, normal rate Abdomen: normal bowel sounds, soft, non tender Genitourinary: normal external genitalia Extremities: no cyanosis DALLIN LORD Dec 09, 2016 19:31
--- NOTE | 2016-12-10 09:33 | Diagnostic Imaging Report ---
Indications: Abnormal renal function tests Technique: Transabdominal real-time grayscale and duplex Doppler imaging of the kidneys, retroperitoneum, and urinary bladder was performed Findings: Comparison: None Right kidney measures 0.5 cm in length. Normal contour, echotexture, cortical thickness. No stones, other focal lesions, hydronephrosis, or obvious perinephric abnormalities. Left kidney measures 9.6 cm in length. Normal contour, echotexture, cortical thickness. No stones, other focal lesions, hydronephrosis, or obvious perinephric abnormalities. The intrahepatic portion of inferior vena cava is patent and normal caliber. The urinary bladder is inadequately demonstrated. IMPRESSION: Sonographically unremarkable kidneys Nonvisualization of urinary bladder
--- NOTE | 2016-12-10 19:39 | Discharge Summary ---
Discharge Summary Hospital Course Date of Admission Dec 05, 2016 at 21:00 Date of Discharge Dec 09, 2016 at 13:20 Admitting Diagnosis congestive heart failure HPI Du Oliveros is a 56 year old male who was admitted on Dec 05, 2016 at 21:00 for Congestive Heart Failure Hospital Course [id number] Discharge Discharge Disposition Patient was discharged to Home (01) Discharge Diagnoses: Beatrice Santos NP Dec 10, 2016 19:39
--- NOTE | 2016-12-11 01:15 | Discharge Summary 2 SIG ---
DATE OF ADMISSION: 12/05/2016 DATE OF DISCHARGE: 12/09/2016 CONSULTANTS: 1. Barry Puente M.D. 2. Nino Cartwright M.D. 3. Jensen Pathak M.D. BRIEF HOSPITAL COURSE: The patient is a 56-year-old male with history of congestive heart failure and chronic obstructive pulmonary disease, presented with worsening shortness of breath for the past week. He has history of cocaine abuse. On evaluation at ED, the patient was tachypneic and orthopneic. Chest x-ray and EKG was done and the patient was admitted to telemetry for further evaluation. The patient has human immunodeficiency virus and was followed by Infectious Disease specialist. The patient is on a single antiretroviral regimen. CD4 count was less than 200. CD4 count was 103 and claims to not on prophylaxis. He was given Levaquin and was advised to continue anti-retroviral therapy and need to be started on Bactrim for PCP prophylaxis. ProBNP was 4632. He was followed by Dr. Pathak. A 12-lead echocardiogram showed atrial tachycardia at a rate of [address] to T-wave abnormalities. Echocardiogram done showed ejection fraction of 20% to 25% with global left ventricular hypokinesis and mild pulmonary hypertension. He was given Lipitor and Isordil. Diltiazem was discontinued and was also started on Coreg. D-dimer was elevated to 1430. Chest CT showed extensive chronic obstructive pulmonary disease with no definite acute pulmonary process. The patient was educated about need for compliance with medication and need to follow up with PCP as outpatient and he agreed. He was discharged home. FINAL DIAGNOSES: 1. Hypoxemic respiratory distress. 2. Acute on chronic obstructive chronic obstructive pulmonary disease in exacerbation. 3. Human immunodeficiency virus, noncompliance with medication. 4. Acute systolic congestive heart failure. 5. Substance abuse. 6. Hypercoagulable state, secondary to congestive heart failure. 7. Proteinuria. 8. Emphysema. 9. Acute respiratory failure. 10. Leukopenia. 11. Acute renal failure. 12. Elevated liver transaminases. 13. Diabetes type 2. 14. Human immunodeficiency virus. Itz Loja M.D. I have been assigned to dictate discharge summary on this account and I was not involved in the patient's management. Beatrice Santos N.P. DR: NEIL JOB#: [id number] CC:
== END 2016-12-09 13:20 | disposition home or self-care (01) | DRG 194 ==
LOC: EMR 18:32 → 2E 21:00 → EDBEDREQ 21:52 → 2W 12-06 08:45 → 2E 12-08 05:45
DX: I50.23 Acute on chronic systolic (congestive) heart failure (principal); J96.01 Acute respiratory failure with hypoxia; B20 Human immunodeficiency virus [HIV] disease; N17.9 Acute kidney failure, unspecified; D68.69 Other thrombophilia; J44.1 Chronic obstructive pulmonary disease with (acute) exacerbation; I27.2 Other secondary pulmonary hypertension; F15.10 Other stimulant abuse, uncomplicated; E11.9 Type 2 diabetes mellitus without complications; F14.10 Cocaine abuse, uncomplicated; Z91.14 Patient's other noncompliance with medication regimen
CPT/HCPCS: 36415; 71010; 71260; 76775; 80053; 80061; 80300; 81001; 81003; 82164; 82248; 82436; 82533; 82550; 82553; 82962; 83036; 83615; 83735; 83880; 83930; 83935; 84100; 84133; 84439; 84443; 84481; 84484; 84550; 85007; 85025; 85379; 85610; 85730; 86360; 89050; 93005; 93306; 94640; 94664; 94760; J7620

== ENCOUNTER 2017-02-20 17:25 | Inpatient (IN) | payer OTHER ==
[~2017-02-20] VITALS: Ht 167.6 cm; Wt 69.1 kg
[~2017-02-20 17:25] MED LIST: LISINOPRIL10 MG ORAL; UNOBMED
--- NOTE | 2017-02-20 17:40 | Emergency Room Report ---
History of Present Illness General Chief Complaint: Edema Present Illness HPI 56 yo M F with pmhx of HTN, DM, CHF, COPD, HIV (unknown last CD4 ct) p/w worsening SOB for 1 week. SOB was gradual in onset, occurs both at rest and on exertion, cannot walk >1 block w/o getting sob, worsened with laying flat. Associated with b/l lower extremity edema for >1 week. Denies chest pain. +cough. no fever or chills. Patient has experienced this SOB in the past and states it feels similar to previous CHF exacerbations. Patient takes Lasix daily and has been compliant with medications (unknown dose) Admitted to [facility] in november of this year for chf exacerbation, CTA performed at that time negative for PE Allergies: Coded Allergies: No Known Allergies (Unverified , 12/05/16) Patient History Past Medical History: see triage record Past Surgical History: none Pertinent Family History: none Social History: Reports: alcohol use Reviewed Nursing Documentation: PMH: Agreed, PSxH: Agreed Nursing Documentation-PMH Hx Cardiac Problems: Yes - CHF, HIV+ Hx COPD: Yes Review of Systems All Other Systems: negative except mentioned in HPI Physical Exam Vital Signs Date Time Temp Pulse Resp B/P (MAP) Pulse Ox O2 Delivery O2 Flow Rate FiO2 02/20/17 17:29 98.8 126 18 109/75 98 Room Air Sp02 EP Interpretation: reviewed, normal General Appearance: alert, GCS 15, mild distress, other - Middle-aged male appears short of breath however speaking complete sentences. Not diaphoretic and not in pain Head: normocephalic, atraumatic Eyes: bilateral eye normal inspection, bilateral eye PERRL, bilateral eye EOMI ENT: normal ENT inspection, normal pharynx, normal voice, moist mucus membranes Neck: normal inspection, full range of motion, supple, no bony tend Respiratory: respiratory distress, other - Tachypneic, satting 99% on room air , bilateral crackles with wheezing, chest symmetrical Cardiovascular #1: normal inspection, normal capillary refill, tachycardia, other - 2+ pitting edema bilateral lower extremities Cardiovascular #2: 2+ radial (R), 2+ radial (L) Gastrointestinal: normal inspection, non tender, soft, non-distended, no guarding Musculoskeletal: normal inspection, back normal, normal range of motion, non- tender Neurologic: normal inspection, alert, oriented x3, responsive, cdl instructor III-XII nml as tested, motor strength/tone normal, sensory intact, normal gait, speech normal Psychiatric: normal inspection, judgement/insight normal, memory normal Skin: normal inspection, normal color, no rash, warm/dry, well hydrated, normal turgor Procedures Critical Care Time Critical Care Time 40 minutes of CC time 56 yo M with chf/copd VS: tachycardia, tachypneic Airway patent. PLAN: IV access, labs, Abx lasix, atrovent, steroids abx [facility] CC time also includes review of labs, review of EMR CC could include dosing of pressors, additional Abx CC time does not include procedures Medical Decision Making Diagnostic Impression: Primary Impression: CHF exacerbation Additional Impressions: Respiratory distress COPD exacerbation ER Course 56 yo M with pmhx of HTN, DM, CAD, CHF, COPD p/w SOB for 1 week. DDX: CHF exacerbation, COPD, pneumonia CTA performed in november - PE Plan: IV access, manager cardiac, O2 nasal cannula obtain basic labs including blood gas, troponin, BNP Lasix, Will consider BIPAP for persistent or worsening respiratory status will also give atrovent/solumedrol to tx copd, will hold albuterol due to tachycardia Anticipate admission ER course: Lasix given, solumedrol and atrovent given Patient has remained on the monitor, Continues to be tachypneic pt started on BIPAP, however only intermittently tolerating it Disposition: Patient to be admitted to [facility] Patient requires inpatient admission for close monitoring of respiratory status/ continuation of BIPAP, further workup including serial troponin and EKGs, possible additional diuresis and monitoring of electrolytes. D/w hospitalist Dr Loja Please note that this Emergency Department Report was dictated using [employer] Pages[employer] counselor technology software, occasionally this can lead to erroneous entry secondary to interpretation by the dictation equipment. Laboratory Tests Test 02/20/17 17:50 White Blood Count 3.5 K/UL (4.8-10.8) L Red Blood Count 3.89 M/UL (4.70-6.10) L Hemoglobin 10.5 G/DL (14.2-18.0) L Hematocrit 33.7 % (42.0-52.0) L Mean Corpuscular Volume 87 FL (80-99) Mean Corpuscular Hemoglobin 26.9 PG (27.0-31.0) L Mean Corpuscular Hemoglobin Concent 31.1 G/DL (32.0-36.0) L Red Cell Distribution Width 21.7 % (11.6-14.8) H Platelet Count 184 K/UL (150-450) Mean Platelet Volume 4.6 FL (6.5-10.1) L Neutrophils (%) (Auto) 66.4 % (45.0-75.0) Lymphocytes (%) (Auto) 20.4 % (20.0-45.0) Monocytes (%) (Auto) 10.9 % (1.0-10.0) H Eosinophils (%) (Auto) 1.2 % (0.0-3.0) Basophils (%) (Auto) 1.1 % (0.0-2.0) Sodium Level 134 mEQ/L (135-145) L Potassium Level 3.7 mEQ/L (3.4-4.9) Chloride Level 96 mEQ/L (98-107) L Carbon Dioxide Level 26 mEQ/L (20-30) Anion Gap 12 (5-15) Blood Urea Nitrogen 17 mg/dL (7-23) Creatinine 1.4 mg/dL (0.7-1.2) H Estimate Glomerular Filtration Rate > 60 mL/min (>60) Glucose Level 136 mg/dL (74-106) H Calcium Level 8.6 mg/dL (8.6-10.2) Total Bilirubin 0.9 mg/dL (0.0-1.2) Aspartate Amino Transferase (AST) 23 U/L (5-40) Alanine Aminotransferase (ALT) 13 U/L (3-41) Alkaline Phosphatase 129 U/L (40-129) Total Creatine Kinase 123 U/L (38-174) Creatine Kinase MB 3.8 ng/mL (< 6.7) Creatine Kinase MB Relative Index 3.0 Troponin I < 0.30 ng/mL (<=0.30) Pro-B-Type Natriuretic Peptide 2597 pg/mL (0-125) H Total Protein 7.0 g/dL (6.6-8.7) Albumin 3.2 g/dL (3.5-5.2) L Globulin 3.8 g/dL Albumin/Globulin Ratio 0.8 (1.0-2.7) L EKG Diagnostic Results Rate: tachycardiac ST Segments: other - Lateral T-wave inversions present on previous EKGs ASA given to the pt in ED: No Rhythm Strip Diag. Results EP Interpretation: yes Rate: 120 Rhythm: NSR, no PVC's, no ectopy, other - tachy Chest X-Ray Diagnostic Results Chest X-Ray Diagnostic Results : Chest X-Ray Ordered: Yes # of Views/Limited/Complete: 1 View Indication: Shortness of Breath EP Interpretation: Yes Interpretation: other - cardiomegaly, pulm vasc congestion Impression: Other - chf Interpreting ER Provider: Electronically signed by Bertha Botello MD Last Vital Signs Date Time Temp Pulse Resp B/P (MAP) Pulse Ox O2 Delivery O2 Flow Rate FiO2 02/20/17 17:29 98.8 126 18 109/75 98 Room Air Disposition: ADMITTED INPATIENT Condition: Critical Bertha Botello M.D. Feb 20, 2017 17:40
[2017-02-20] MEDS ORDERED: cefTRIAXone 1 GM in NS 55 ML IVPB ONE (18:00)
[2017-02-20] MEDS ORDERED: Azithromycin 500 MG in D5W 275 ML IVPB ONE (18:00)
[2017-02-20] MEDS ORDERED: Solu-MEDROL 125mg Inj IVP ONE (18:00)
[2017-02-20] MEDS ORDERED: Ipratropium 0.02% Inh Soln 2.5ml UD HHN SCH (18:00)
[2017-02-20 18:01] LABS: BASOPHILS % (AUTO) 1.1 % (0.0-2.0); EOSINOPHILS % (AUTO) 1.2 % (0.0-3.0); LYMPHOCYTES % (AUTO) 20.4 % (20.0-45.0); MEAN CORPUSCULAR HEMOGLOBIN 26.9 PG (27.0-31.0); MEAN CORPUSCULAR HGB CONC 31.1 G/DL (32.0-36.0); MEAN CORPUSCULAR VOLUME 87 FL (80-99); MEAN PLATELET VOLUME 4.6 FL (6.5-10.1); MONOCYTES % (AUTO) 10.9 % (1.0-10.0); NEUTROPHILS % (AUTO) 66.4 % (45.0-75.0); PLATELET COUNT 184 K/UL (150-450); RED BLOOD COUNT 3.89 M/UL (4.70-6.10); RED CELL DISTRIBUTION WIDTH 21.7 % (11.6-14.8); WHITE BLOOD COUNT 3.5 K/UL (4.8-10.8)
[2017-02-20 18:03] VITALS: BP 112/89
[2017-02-20 18:29] LABS: ALANINE AMINOTRANSFERASE 13 U/L (3-41); ALBUMIN/GLOBULIN RATIO 0.8 (1.0-2.7); ANION GAP 12 (5-15); ASPARTATE AMINO TRANSFERASE 23 U/L (5-40); CALCIUM 8.6 mg/dL (8.6-10.2); CARBON DIOXIDE 26 mEQ/L (20-30); CHLORIDE 96 mEQ/L (98-107); CREATININE 1.4 mg/dL (0.7-1.2); GLOMERULAR FILTRATION RATE > 60 mL/min (>60); HEMOLYSIS 0; POTASSIUM 3.7 mEQ/L (3.4-4.9); SODIUM 134 mEQ/L (135-145); TROPONIN I < 0.30 ng/mL (<=0.30)
[2017-02-20 18:40] LABS: CKMB 3.8 ng/mL (< 6.7)
[2017-02-20] MEDS ORDERED: Azithromycin 500mg Inj IV ONE (19:30)
[2017-02-20 20:00] VITALS: BP 104/81
[2017-02-20 22:00] VITALS: BP 94/75
[2017-02-20] MEDS ORDERED: Promethazine/Codeine 5ml UD ORAL PRN (22:00)
[2017-02-20] MEDS ORDERED: Morphine Sulfate 2mg/ml Inj IVP PRN (22:00)
[2017-02-20] MEDS ORDERED: Nitroglycerin Subl 0.4mg tab (Bottle Of 25) SL PRN (22:00)
[2017-02-20] MEDS ORDERED: LORazepam Inj 2mg/ml 1ml IV PRN (22:00)
[2017-02-20] MEDS ORDERED: DuoNeb 0.5-3(2.5)mg/3ml neb HHN PRN (22:00)
[2017-02-20 23:00] VITALS: BP 100/84
[2017-02-21] MEDS: Solu-MEDROL 125mg Inj IV SCH ×5 (00:20→23:18)
[2017-02-21] MEDS ORDERED: LISINOPRIL2.5 MG ORAL (01:14)
[2017-02-21] MEDS ORDERED: ATORVASTATIN CA40 MG ORAL (01:14)
[2017-02-21] MEDS ORDERED: WARFARIN SODIU7.5 MG ORAL (01:14)
[2017-02-21] MEDS ORDERED: GENVOYA TABLET1 EACH PO (01:14)
[2017-02-21] MEDS ORDERED: LEXAPRO10 MG ORAL (01:14)
[2017-02-21] MEDS ORDERED: ALLOPURINOL300 M1 ORAL (01:14)
[2017-02-21] MEDS ORDERED: FUROSEMIDE40 MG ORAL (01:14)
[2017-02-21] MEDS ORDERED: [UNRECOGNIZED DRUG - OTHER] PO (01:14)
[2017-02-21] MEDS ORDERED: Digoxin 0.5mg/2ml Inj IVP ONE (01:15)
[2017-02-21 04:00] VITALS: BP 138/92
[2017-02-21 05:44] LABS: MEAN CORPUSCULAR HEMOGLOBIN 26.4 PG (27.0-31.0); MEAN CORPUSCULAR HGB CONC 29.9 G/DL (32.0-36.0); MEAN CORPUSCULAR VOLUME 88 FL (80-99); MEAN PLATELET VOLUME 5.8 FL (6.5-10.1); PLATELET COUNT 221 K/UL (150-450); RED BLOOD COUNT 4.45 M/UL (4.70-6.10); RED CELL DISTRIBUTION WIDTH 21.2 % (11.6-14.8); WHITE BLOOD COUNT 4.4 K/UL (4.8-10.8)
[2017-02-21 06:14] LABS: LACTATE DEHYDROGENASE 354 U/L (135-230); URIC ACID 4.4 mg/dL (3.0-7.5)
[2017-02-21 06:15] LABS: HEMOLYSIS 0; IRON 37 ug/dL (59-158); TOTAL IRON BINDING CAPACITY 420 ug/dL (250-400)
[2017-02-21 06:19] LABS: INR 2.6 (0.9-1.1); PROTHROMBIN TIME 26.7 SEC (9.30-11.50)
[2017-02-21 06:22] LABS: ALANINE AMINOTRANSFERASE 14 U/L (3-41); ALBUMIN/GLOBULIN RATIO 0.7 (1.0-2.7); ANION GAP 14 (5-15); ASPARTATE AMINO TRANSFERASE 26 U/L (5-40); CALCIUM 9.1 mg/dL (8.6-10.2); CARBON DIOXIDE 25 mEQ/L (20-30); CHLORIDE 99 mEQ/L (98-107); CREATININE 1.3 mg/dL (0.7-1.2); GLOMERULAR FILTRATION RATE > 60 mL/min (>60); HEMOLYSIS 0; POTASSIUM 4.3 mEQ/L (3.4-4.9); SODIUM 138 mEQ/L (135-145); TOTAL PROTEIN 7.8 g/dL (6.6-8.7)
[2017-02-21 08:00] VITALS: BP 138/102
[2017-02-21 08:19] LABS: BILIRUBIN,DIRECT 0.6 mg/dL (0.1-0.3)
--- NOTE | 2017-02-21 08:53 | Diagnostic Imaging Report ---
Indication: Dyspnea Comparison: 12/07/16 A single view chest radiograph was obtained. Findings: There is a prominent right apical bulla. The heart is enlarged. Bones are unremarkable. Aorta is calcified. Impression: No acute disease
[2017-02-21] MEDS ORDERED: Digoxin 0.5mg/2ml Inj IVP SCH (09:00)
[2017-02-21] MEDS ORDERED: Heparin 5000 units/ml inj SUBQ SCH (09:00)
[2017-02-21 09:21] LABS: ANISOCYTOSIS 2+; BAND NEUTROPHILS % (MANUAL) 0 % (0-8); BASOPHILS % (MANUAL) 0 % (0-2); EOSINOPHILS % (MANUAL) 0 % (0-3); LYMPHOCYTES % (MANUAL) 5 % (20-45); NEUTROPHILS % (MANUAL) 94 % (45-75); PLATELET ESTIMATE ADEQUATE; PLATELET MORPHOLOGY NORMAL; TOTAL CELLS COUNTED 100
[2017-02-21 09:22] LABS: SCHISTOCYTES OCCASIONAL
[2017-02-21 09:24] LABS: HYPOCHROMASIA 1+
[2017-02-21 09:58] LABS: ERYTHROCYTE SEDIMENTATION RATE 34 MM/HR (0-20); PATH BLOOD SMEAR/OMC SENT TO PATHOLOGIST
[2017-02-21 10:39] LABS: RETICULOCYTE COUNT 1.2 % (0.0-2.0)
--- NOTE | 2017-02-21 11:02 | History & Physical ---
History and Physical History & Physicial seen and examined. Dication completed. Itz Loja MD Feb 21, 2017 11:02
--- NOTE | 2017-02-21 11:05 | General Progress Note ---
Assessment/Plan Status: stable Assessment/Plan 1- COPD exacerbationj 2- CHF- Low EF 3- Substance abuse 4- HIV 5- Sinus Tachy arrythmai Plan: No evidence of active Afib. will hold Dig c/w coumadin will followup with cardiology and pulmonary services Subjective ROS Limited/Unobtainable: Yes - sleepy, post administration of Narcotics Allergies: Coded Allergies: No Known Allergies (Unverified , 12/05/16) Objective Last 24 Hour Vital Signs Date Time Temp Pulse Resp B/P (MAP) Pulse Ox O2 Delivery O2 Flow Rate FiO2 02/21/17 09:56 128 02/21/17 08:37 128 02/21/17 08:32 128 18 02/21/17 08:00 97.8 126 25 138/102 98 Room Air 02/21/17 07:26 129 18 02/21/17 04:20 133 02/21/17 04:00 98.4 130 32 138/92 94 Room Air 02/21/17 01:39 128 02/20/17 23:45 125 02/20/17 23:00 98.1 125 28 100/84 100 Room Air 40 02/20/17 23:00 98.1 125 28 100/84 100 Room Air 02/20/17 22:00 98.8 128 32 94/75 98 Room Air 02/20/17 20:00 98.4 125 31 104/81 99 Room Air 02/20/17 18:51 126 36 100 Facial 40 02/20/17 18:13 123 33 96 Room Air 02/20/17 18:03 98.8 125 21 112/89 100 Room Air 02/20/17 18:02 116 18 Room Air 02/20/17 17:29 98.8 126 18 109/75 98 Room Air Intake and Output 02/21/17 02/22/17 19:00 07:00 Intake Total 200 ml Output Total 1400 ml Balance -1200 ml Intake Oral 200 ml Output Urine Total 1400 ml Laboratory Tests 02/20/17 17:50: White Blood Count 3.5L, Red Blood Count 3.89L, Hemoglobin 10.5L, Hematocrit 33.7L, Mean Corpuscular Volume 87, Mean Corpuscular Hemoglobin 26.9L, Mean Corpuscular Hemoglobin Concent 31.1L, Red Cell Distribution Width 21.7H, Platelet Count 184, Mean Platelet Volume 4.6L, Neutrophils (%) (Auto) 66.4, Lymphocytes (%) (Auto) 20.4, Monocytes (%) (Auto) 10.9H, Eosinophils (%) (Auto) 1.2, Basophils (%) (Auto) 1.1, Sodium Level 134L, Potassium Level 3.7, Chloride Level 96L, Carbon Dioxide Level 26, Anion Gap 12, Blood Urea Nitrogen 17, Creatinine 1.4H, Estimat Glomerular Filtration Rate > 60, Glucose Level 136H, Calcium Level 8.6, Total Bilirubin 0.9, Aspartate Amino Transf (AST/SGOT) 23, Alanine Aminotransferase (ALT/SGPT) 13, Alkaline Phosphatase 129, Total Creatine Kinase 123, Creatine Kinase MB 3.8, Creatine Kinase MB Relative Index 3.0, Troponin I < 0.30, Pro-B-Type Natriuretic Peptide 2597H, Total Protein 7.0 , Albumin 3.2L, Globulin 3.8, Albumin/Globulin Ratio 0.8L 02/21/17 03:30: White Blood Count 4.4L, Red Blood Count 4.45L, Hemoglobin 11.7L, Hematocrit 39.2L, Mean Corpuscular Volume 88, Mean Corpuscular Hemoglobin 26.4L, Mean Corpuscular Hemoglobin Concent 29.9L, Red Cell Distribution Width 21.2H, Platelet Count 221, Mean Platelet Volume 5.8L, Neutrophils (%) (Auto) , Lymphocytes (%) (Auto) , Monocytes (%) (Auto) , Eosinophils (%) (Auto) , Basophils (%) (Auto) , Sodium Level 138, Potassium Level 4.3, Chloride Level 99 , Carbon Dioxide Level 25, Anion Gap 14, Blood Urea Nitrogen 22, Creatinine 1.3H , Estimat Glomerular Filtration Rate > 60, Glucose Level 160H, Calcium Level 9.1 , Total Bilirubin 1.3H, Aspartate Amino Transf (AST/SGOT) 26, Alanine Aminotransferase (ALT/SGPT) 14, Alkaline Phosphatase 142H, Total Creatine Kinase 121, Total Protein 7.8, Albumin 3.4L, Globulin 4.4, Albumin/Globulin Ratio 0.7L, Differential Total Cells Counted 100, Neutrophils % (Manual) 94H, Lymphocytes % (Manual) 5L, Monocytes % (Manual) 1, Eosinophils % (Manual) 0, Basophils % (Manual) 0, Band Neutrophils 0, Platelet Estimate Adequate, Platelet Morphology Normal, Hypochromasia 1+, Anisocytosis 2+, Schistocytes Occasional, Erythrocyte Sedimentation Rate 34H, Reticulocyte Count 1.2, Prothrombin Time 26.7H, Prothromb Time International Ratio 2.6H, Activated Partial Thromboplast Time 32, Uric Acid 4.4, Iron Level 37L, Total Iron Binding Capacity 420H, Percent Iron Saturation 9L, Unsaturated Iron Binding 383H, Direct Bilirubin 0.6H, Lactate Dehydrogenase 354H, Carcinoembryonic Antigen 10.6H, Vitamin B12 Level 833, Folate [Pending] Height (Feet): 5 Height (Inches): 6.00 Weight (Pounds): 169 General Appearance: no apparent distress EENT: PERRL/EOMI Neck: supple Cardiovascular: tachycardia Respiratory/Chest: rhonchi - bilaterally Abdomen: soft Extremities: non-tender Neurologic: engraver picture II-XII grossly normal, other - drowsy, likely iatrogenic Itz Loja MD Feb 21, 2017 11:05
--- NOTE | 2017-02-21 11:23 | Diagnostic Imaging Report ---
Indication:Elevated Bun and Creatinine. Technique: Grayscale and duplex Doppler imaging of the kidneys performed. Comparison: None Findings: The size, contour, and echogenicity of both kidneys are within normal limits. There is no hydronephrosis. The IVC and urinary bladder are unremarkable. Trace ascites noted. Givens catheter is present. Both kidneys measure between 10 and 11 cm in length. Impression: Negative ultrasound of the kidneys. Givens catheter noted. Trace ascites
[2017-02-21 12:00] VITALS: BP 124/90
--- NOTE | 2017-02-21 12:25 | Consultation ---
History of Present Illness General Date patient seen: Feb 21, 2017 Time patient seen: 10:30 Chief Complaint: Edema Referring physician: dr Loja Reason for Consultation: SOB Present Illness HPI 56 y/o male with PMH of HTN, DM, CHF, COPD, HIV (unknown last CD4 ct) presented with worsening SOB for 1 week. SOB described as gradual in onset, occurring both at rest and on exertion, patient stated unable to walk more than 1 block w/o getting SOB. reported SOB worsening with laying flat. reported BLE edema for over week. No chest pain, no dizziness, no palpitations admits to nonproductive cough, no wheezing, no hemoptysis . no fever or chills. Patient had similar episodes of SOB in the past Patient on daily diuretic ( i.e. Lasix), reported compliance with mediation regimen workup in ED revealed leukopenia WBC-3.5 anemia -10.5/33.7 creat-1.4 INR-2.6 pro BNP 2597 CXR with prominent right apical bulla. The heart is enlarged. Bones are unremarkable. Aorta is calcified. ECG with ST Patient was admitted for further management Allergies: Coded Allergies: No Known Allergies (Unverified , 12/05/16) Medication History Scheduled Allopurinol* (Allopurinol*), 300 MG ORAL DAILY, (Reported) Atorvastatin Calcium* (Atorvastatin Calcium*), 80 MG ORAL DAILY, (Reported) Elviteg/Chery/Emtric/Tenofo Ala (Genvoya Tablet), 10 MG PO DAILY, (Reported) Escitalopram Oxalate* (Lexapro*), 5 MG ORAL DAILY, (Reported) Furosemide* (Lasix*), 40 MG ORAL TWICE A DAY, (Reported) Lisinopril* (Lisinopril*), 2.5 MG ORAL DAILY, (Reported) Warfarin Sod* (Warfarin Sod*), 7.5 MG ORAL DAILY, (Reported) [atozaquone], 750 MG PO DAILY, (Reported) Patient History History Provided By: Patient Healthcare decision maker Resuscitation status Full Code Advanced Directive on File No Past Medical/Surgical History Past Medical/Surgical History: (1) Emphysema lung (2) EF 20% (3) Bullous emphysema (4) COPD exacerbation (5) CHF exacerbation (6) chf Review of Systems Eye: Reports: no symptoms ENT: Reports: no symptoms Respiratory: Reports: see HPI Cardiovascular: Reports: see HPI Gastrointestinal: Reports: no symptoms Genitourinary: Reports: no symptoms Musculoskeletal: Reports: no symptoms Skin: Reports: no symptoms Psychiatric: Reports: no symptoms Neurological: Reports: no symptoms Endocrine: Reports: no symptoms Hematologic/Lymphatic: Reports: anemia, other - HIV Physical Exam General Appearance: no apparent distress, other - awake, alert, weak, ill appearing AA male Lines, tubes and drains: peripheral HEENT: normocephalic, atraumatic, anicteric, mucous membranes moist Neck: supple Respiratory/Chest: no accessory muscle use, crackles/rales, expiratory wheezing - fgew isolaetd wheezes Cardiovascular/Chest: normal rate, tachycardia - ST on tele Abdomen: normal bowel sounds, non tender, soft Extremities: normal range of motion, non-tender, no calf tenderness, normal capillary refill, other - +1 to + 2 edema BLE Neurologic: alert, responsive Musculoskeletal: normal muscle bulk Last 24 Hour Vital Signs Date Time Temp Pulse Resp B/P (MAP) Pulse Ox O2 Delivery O2 Flow Rate FiO2 02/21/17 11:30 128 18 02/21/17 09:56 128 02/21/17 08:37 128 02/21/17 08:32 128 18 02/21/17 08:00 97.8 126 25 138/102 98 Room Air 02/21/17 07:26 129 18 02/21/17 04:20 133 02/21/17 04:00 98.4 130 32 138/92 94 Room Air 02/21/17 01:39 128 02/20/17 23:45 125 02/20/17 23:00 98.1 125 28 100/84 100 Room Air 40 02/20/17 23:00 98.1 125 28 100/84 100 Room Air 02/20/17 22:00 98.8 128 32 94/75 98 Room Air 02/20/17 20:00 98.4 125 31 104/81 99 Room Air 02/20/17 18:51 126 36 100 Facial 40 02/20/17 18:13 123 33 96 Room Air 02/20/17 18:03 98.8 125 21 112/89 100 Room Air 02/20/17 18:02 116 18 Room Air 02/20/17 17:29 98.8 126 18 109/75 98 Room Air Intake and Output 02/21/17 02/22/17 19:00 07:00 Intake Total 200 ml Output Total 1400 ml Balance -1200 ml Intake Oral 200 ml Output Urine Total 1400 ml Laboratory Tests Test 02/20/17 17:50 02/21/17 03:30 White Blood Count 3.5 K/UL (4.8-10.8) L 4.4 K/UL (4.8-10.8) L Red Blood Count 3.89 M/UL (4.70-6.10) L 4.45 M/UL (4.70-6.10) L Hemoglobin 10.5 G/DL (14.2-18.0) L 11.7 G/DL (14.2-18.0) L Hematocrit 33.7 % (42.0-52.0) L 39.2 % (42.0-52.0) L Mean Corpuscular Volume 87 FL (80-99) 88 FL (80-99) Mean Corpuscular Hemoglobin 26.9 PG (27.0-31.0) L 26.4 PG (27.0-31.0) L Mean Corpuscular Hemoglobin Concent 31.1 G/DL (32.0-36.0) L 29.9 G/DL (32.0-36.0) L Red Cell Distribution Width 21.7 % (11.6-14.8) H 21.2 % (11.6-14.8) H Platelet Count 184 K/UL (150-450) 221 K/UL (150-450) Mean Platelet Volume 4.6 FL (6.5-10.1) L 5.8 FL (6.5-10.1) L Neutrophils (%) (Auto) 66.4 % (45.0-75.0) % (45.0-75.0) Lymphocytes (%) (Auto) 20.4 % (20.0-45.0) % (20.0-45.0) Monocytes (%) (Auto) 10.9 % (1.0-10.0) H % (1.0-10.0) Eosinophils (%) (Auto) 1.2 % (0.0-3.0) % (0.0-3.0) Basophils (%) (Auto) 1.1 % (0.0-2.0) % (0.0-2.0) Sodium Level 134 mEQ/L (135-145) L 138 mEQ/L (135-145) Potassium Level 3.7 mEQ/L (3.4-4.9) 4.3 mEQ/L (3.4-4.9) Chloride Level 96 mEQ/L (98-107) L 99 mEQ/L (98-107) Carbon Dioxide Level 26 mEQ/L (20-30) 25 mEQ/L (20-30) Anion Gap 12 (5-15) 14 (5-15) Blood Urea Nitrogen 17 mg/dL (7-23) 22 mg/dL (7-23) Creatinine 1.4 mg/dL (0.7-1.2) H 1.3 mg/dL (0.7-1.2) H Estimat Glomerular Filtration Rate > 60 mL/min (>60) > 60 mL/min (>60) Glucose Level 136 mg/dL (74-106) H 160 mg/dL (74-106) H Calcium Level 8.6 mg/dL (8.6-10.2) 9.1 mg/dL (8.6-10.2) Total Bilirubin 0.9 mg/dL (0.0-1.2) 1.3 mg/dL (0.0-1.2) H Aspartate Amino Transf (AST/SGOT) 23 U/L (5-40) 26 U/L (5-40) Alanine Aminotransferase (ALT/SGPT) 13 U/L (3-41) 14 U/L (3-41) Alkaline Phosphatase 129 U/L (40-129) 142 U/L (40-129) H Total Creatine Kinase 123 U/L (38-174) 121 U/L (38-174) Creatine Kinase MB 3.8 ng/mL (< 6.7) Creatine Kinase MB Relative Index 3.0 Troponin I < 0.30 ng/mL (<=0.30) Pro-B-Type Natriuretic Peptide 2597 pg/mL (0-125) H Total Protein 7.0 g/dL (6.6-8.7) 7.8 g/dL (6.6-8.7) Albumin 3.2 g/dL (3.5-5.2) L 3.4 g/dL (3.5-5.2) L Globulin 3.8 g/dL 4.4 g/dL Albumin/Globulin Ratio 0.8 (1.0-2.7) L 0.7 (1.0-2.7) L Differential Total Cells Counted 100 Neutrophils % (Manual) 94 % (45-75) H Lymphocytes % (Manual) 5 % (20-45) L Monocytes % (Manual) 1 % (1-10) Eosinophils % (Manual) 0 % (0-3) Basophils % (Manual) 0 % (0-2) Band Neutrophils 0 % (0-8) Platelet Estimate Adequate Platelet Morphology Normal Hypochromasia 1+ Anisocytosis 2+ Schistocytes Occasional Erythrocyte Sedimentation Rate 34 MM/HR (0-20) H Reticulocyte Count 1.2 % (0.0-2.0) Prothrombin Time 26.7 SEC (9.30-11.50) H Prothromb Time International Ratio 2.6 (0.9-1.1) H Activated Partial Thromboplast Time 32 SEC (23-33) Uric Acid 4.4 mg/dL (3.0-7.5) Iron Level 37 ug/dL (59-158) L Total Iron Binding Capacity 420 ug/dL (250-400) H Percent Iron Saturation 9 % (15-50) L Unsaturated Iron Binding 383 ug/dL (112-346) H Direct Bilirubin 0.6 mg/dL (0.1-0.3) H Lactate Dehydrogenase 354 U/L (135-230) H Carcinoembryonic Antigen 10.6 ng/mL H Vitamin B12 Level 833 pg/mL (211-946) Folate Pending Height (Feet): 5 Height (Inches): 6.00 Weight (Pounds): 169 Medications Current Medications Medications (Trade) Dose Ordered Sig/Rocio Route PRN Reason Start Time Stop Time Status Last Admin Dose Admin Acetaminophen (Tylenol) 650 mg Q4H PRN ORAL T>100.5 02/20/17 22:00 03/22/17 21:59 Albuterol/ Ipratropium (DuoNeb 0.5-3(2.5)mg/3ml) 3 ml Q4H PRN HHN dyspnea 02/20/17 22:00 02/25/17 21:59 Clonidine HCl (Catapres) 0.1 mg Q4H PRN ORAL sbp more than 160 02/20/17 22:00 03/22/17 21:59 Dextrose (Dextrose 50%) STAT PRN IV Hypoglycemia 02/20/17 22:00 03/22/17 21:59 Ferrous Sulfate (Feosol) 325 mg THREE TIMES A DAY ORAL 02/21/17 13:00 03/23/17 12:59 Furosemide (Lasix) 40 mg EVERY 8 HOURS IV 02/20/17 22:00 03/22/17 21:59 02/21/17 05:07 Heparin Sodium (Porcine) (Heparin 5000 units/ml) 5,000 units EVERY 12 HOURS SUBQ 02/21/17 09:00 03/23/17 08:59 02/21/17 10:04 Levofloxacin 100 ml @ 100 mls/hr Q24H IVPB 02/20/17 23:00 02/27/17 22:59 02/21/17 02:53 Lorazepam (Ativan 2mg/ml 1ml) 0.5 mg Q4H PRN IV For Anxiety 02/20/17 22:00 02/27/17 21:59 Methylprednisolone Sodium Succinate (Solu-MEDROL) 60 mg EVERY 6 HOURS IV 02/21/17 00:00 03/23/17 00:00 02/21/17 05:07 Nitroglycerin (Ntg) 0.4 mg Q5M X 3 DOSES PRN SL Prn Chest Pain 02/20/17 22:00 03/22/17 21:59 Ondansetron HCl (Zofran) 4 mg Q6H PRN IVP Nausea & Vomiting 02/20/17 22:00 03/22/17 21:59 Promethazine HCl/ Codeine (Phenergan with Codeine) 5 ml Q6H PRN ORAL cough 02/20/17 22:00 03/22/17 21:59 Tamsulosin HCl (Flomax) 0.4 mg BEDTIME ORAL 02/21/17 21:00 03/23/17 20:59 Temazepam (Restoril) 15 mg HSPRN PRN ORAL Insomnia 02/20/17 22:00 02/27/17 21:59 Warfarin Sodium (Coumadin per pharmacy) 1 ea DAILY PRN MISC Per rx protocol 02/21/17 11:00 03/23/17 10:59 UNV Assessment/Plan Assessment/Plan ASSESSMENT acute COPD exacerbation likely acute on chronic systolic heart failure bullous emphysema respiratory distress cocaine cardiomyopathy, likely nonischemic HTN sinus tachycardia PAF HIV status HUGH vs CRI anemia, iron deficiency leukopenia PLAN OF CARE DO status O2 to keep sat above 92% BiPAP prn pulmonary toilet IV steroids and taper empiric abx fup with CXR ECHO continue Digoxin, ANDREAS and diuresis ( no BB due to cocaine abuse) cardio eval pending ST on tele, likely due to underlying process on Coumadin ( for PAF), INR therapeutic check T cell subsets monitor renal parameters, avoid nephrotoxic monitor counts, leukopenia likely due to underlying HIV status anemia w/up with evidence of iron deficiency anemia ( low iron, high TIBC) , check ferritin, stool OB, CEA case discussed and evaluated by supervising physician Frederick (Yousif),Ashley KURTZ Feb 21, 2017 12:24
[2017-02-21] MEDS ORDERED: NS 275ml ONE (13:34)
[2017-02-21] MEDS ORDERED: Tubing IV Secondary IV ONE (13:34)
[2017-02-21] MEDS ORDERED: NS 550ML IV ONE (13:34)
[2017-02-21 14:00] VITALS: BP 129/97
[2017-02-21 16:00] VITALS: BP 130/80
[2017-02-21] MEDS ORDERED: Warfarin Sodium 7.5mg ORAL SCH (17:00)
--- NOTE | 2017-02-21 17:10 | Cardiology Progress Note ---
Assessment/Plan Assessment/Plan The patient is seen and examined, full consult note will be dictated. Objective Last 24 Hour Vital Signs Date Time Temp Pulse Resp B/P (MAP) Pulse Ox O2 Delivery O2 Flow Rate FiO2 02/21/17 17:01 130 20 02/21/17 16:00 97.8 130 22 130/80 94 Room Air 02/21/17 16:00 130 02/21/17 15:13 125 18 02/21/17 14:00 129 26 129/97 100 Room Air 02/21/17 13:01 124 18 02/21/17 12:00 97.8 124 19 124/90 99 Room Air 02/21/17 12:00 123 02/21/17 11:30 128 18 02/21/17 09:56 128 02/21/17 08:37 128 02/21/17 08:32 128 18 02/21/17 08:00 97.8 126 25 138/102 98 Room Air 02/21/17 07:26 129 18 02/21/17 04:20 133 02/21/17 04:00 98.4 130 32 138/92 94 Room Air 02/21/17 01:39 128 02/20/17 23:45 125 02/20/17 23:00 98.1 125 28 100/84 100 Room Air 40 02/20/17 23:00 98.1 125 28 100/84 100 Room Air 02/20/17 22:00 98.8 128 32 94/75 98 Room Air 02/20/17 20:00 98.4 125 31 104/81 99 Room Air 02/20/17 18:51 126 36 100 Facial 40 02/20/17 18:13 123 33 96 Room Air 02/20/17 18:03 98.8 125 21 112/89 100 Room Air 02/20/17 18:02 116 18 Room Air 02/20/17 17:29 98.8 126 18 109/75 98 Room Air Intake and Output 02/21/17 02/22/17 19:00 07:00 Intake Total 200 ml Output Total 1400 ml Balance -1200 ml Intake Oral 200 ml Output Urine Total 1400 ml Laboratory Tests Test 02/20/17 17:50 02/21/17 03:30 White Blood Count 3.5 K/UL (4.8-10.8) L 4.4 K/UL (4.8-10.8) L Red Blood Count 3.89 M/UL (4.70-6.10) L 4.45 M/UL (4.70-6.10) L Hemoglobin 10.5 G/DL (14.2-18.0) L 11.7 G/DL (14.2-18.0) L Hematocrit 33.7 % (42.0-52.0) L 39.2 % (42.0-52.0) L Mean Corpuscular Volume 87 FL (80-99) 88 FL (80-99) Mean Corpuscular Hemoglobin 26.9 PG (27.0-31.0) L 26.4 PG (27.0-31.0) L Mean Corpuscular Hemoglobin Concent 31.1 G/DL (32.0-36.0) L 29.9 G/DL (32.0-36.0) L Red Cell Distribution Width 21.7 % (11.6-14.8) H 21.2 % (11.6-14.8) H Platelet Count 184 K/UL (150-450) 221 K/UL (150-450) Mean Platelet Volume 4.6 FL (6.5-10.1) L 5.8 FL (6.5-10.1) L Neutrophils (%) (Auto) 66.4 % (45.0-75.0) % (45.0-75.0) Lymphocytes (%) (Auto) 20.4 % (20.0-45.0) % (20.0-45.0) Monocytes (%) (Auto) 10.9 % (1.0-10.0) H % (1.0-10.0) Eosinophils (%) (Auto) 1.2 % (0.0-3.0) % (0.0-3.0) Basophils (%) (Auto) 1.1 % (0.0-2.0) % (0.0-2.0) Sodium Level 134 mEQ/L (135-145) L 138 mEQ/L (135-145) Potassium Level 3.7 mEQ/L (3.4-4.9) 4.3 mEQ/L (3.4-4.9) Chloride Level 96 mEQ/L (98-107) L 99 mEQ/L (98-107) Carbon Dioxide Level 26 mEQ/L (20-30) 25 mEQ/L (20-30) Anion Gap 12 (5-15) 14 (5-15) Blood Urea Nitrogen 17 mg/dL (7-23) 22 mg/dL (7-23) Creatinine 1.4 mg/dL (0.7-1.2) H 1.3 mg/dL (0.7-1.2) H Estimat Glomerular Filtration Rate > 60 mL/min (>60) > 60 mL/min (>60) Glucose Level 136 mg/dL (74-106) H 160 mg/dL (74-106) H Calcium Level 8.6 mg/dL (8.6-10.2) 9.1 mg/dL (8.6-10.2) Total Bilirubin 0.9 mg/dL (0.0-1.2) 1.3 mg/dL (0.0-1.2) H Aspartate Amino Transf (AST/SGOT) 23 U/L (5-40) 26 U/L (5-40) Alanine Aminotransferase (ALT/SGPT) 13 U/L (3-41) 14 U/L (3-41) Alkaline Phosphatase 129 U/L (40-129) 142 U/L (40-129) H Total Creatine Kinase 123 U/L (38-174) 121 U/L (38-174) Creatine Kinase MB 3.8 ng/mL (< 6.7) Creatine Kinase MB Relative Index 3.0 Troponin I < 0.30 ng/mL (<=0.30) Pro-B-Type Natriuretic Peptide 2597 pg/mL (0-125) H Total Protein 7.0 g/dL (6.6-8.7) 7.8 g/dL (6.6-8.7) Albumin 3.2 g/dL (3.5-5.2) L 3.4 g/dL (3.5-5.2) L Globulin 3.8 g/dL 4.4 g/dL Albumin/Globulin Ratio 0.8 (1.0-2.7) L 0.7 (1.0-2.7) L Differential Total Cells Counted 100 Neutrophils % (Manual) 94 % (45-75) H Lymphocytes % (Manual) 5 % (20-45) L Monocytes % (Manual) 1 % (1-10) Eosinophils % (Manual) 0 % (0-3) Basophils % (Manual) 0 % (0-2) Band Neutrophils 0 % (0-8) Platelet Estimate Adequate Platelet Morphology Normal Hypochromasia 1+ Anisocytosis 2+ Schistocytes Occasional Erythrocyte Sedimentation Rate 34 MM/HR (0-20) H Reticulocyte Count 1.2 % (0.0-2.0) Prothrombin Time 26.7 SEC (9.30-11.50) H Prothromb Time International Ratio 2.6 (0.9-1.1) H Activated Partial Thromboplast Time 32 SEC (23-33) Uric Acid 4.4 mg/dL (3.0-7.5) Iron Level 37 ug/dL (59-158) L Total Iron Binding Capacity 420 ug/dL (250-400) H Percent Iron Saturation 9 % (15-50) L Unsaturated Iron Binding 383 ug/dL (112-346) H Ferritin 43 ng/mL (10-230) Direct Bilirubin 0.6 mg/dL (0.1-0.3) H Lactate Dehydrogenase 354 U/L (135-230) H Carcinoembryonic Antigen 10.6 ng/mL H Vitamin B12 Level 833 pg/mL (211-946) Folate Pending RENATA BEAN Feb 21, 2017 17:10
[2017-02-21] MEDS: Digoxin 0.125mg tab ORAL SCH (17:48)
[2017-02-21] MEDS: Lisinopril 2.5mg tab ORAL SCH (17:49)
[2017-02-21 20:00] VITALS: BP 131/80
[2017-02-21] MEDS: Tamsulosin 0.4mg cap ORAL SCH (20:55)
[2017-02-22] VITALS: BP 115/83
--- NOTE | 2017-02-22 03:45 | History and Physical Report ---
DATE OF ADMISSION: 02/20/2017 SOURCE OF INFORMATION: EMR. HISTORY OF PRESENT ILLNESS: The patient is a 56-year-old male with history of CHF, HIV, who presented with acute on chronic worsening of shortness of breath. At the time of evaluation, the patient is drowsy, limited source of information. At the time of evaluation, the patient appears comfortable. No reported discomfort. Abnormal bleeding is reported. PAST MEDICAL HISTORY: COPD, HIV, CHF, hypertension, gout, and hyperlipidemia. HOSPITAL MEDICATIONS: Including, but not limited to the following, Flomax and prednisone. ALLERGIES: NKDA. FAMILY HISTORY: Reviewed and noncontributory. SOCIAL HISTORY: Not obtainable as the patient is drowsy. Positive history of substance abuse based on the positive test results on 12/05/2016. REVIEW OF SYSTEMS: All 12 elements of review of systems reviewed with the patient and pertinent positives and negatives as detailed above. LABORATORY AND DIAGNOSTIC DATA: Chest x-ray dated 02/20/2017 is negative for any acute pathology. Labs dated 02/20/2017 shows WBC 3.5, hemoglobin 10.5, and platelets 184,000. Sodium 138, potassium 4.3, BUN 22, and creatinine 1.3. Iron saturation 9. AST and ALT normal. CEA is 10.6. ASSESSMENT: 1. Acute on chronic chronic obstructive pulmonary disease exacerbation. 2. Bronchitis. 3. Cardiomyopathy with ejection fraction less than 20. 4. Tachyarrhythmia - differential paroxysmal atrial fibrillation, junctional rhythm. 5. Hypertension. 6. Hyperlipidemia. 7. Benign prostatic hypertrophy. 8. Human immunodeficiency virus. 9. Substance abuse. 10. Gastrointestinal and deep vein thrombosis prophylaxis. PLAN OF CARE: Given the prior questionable history of paroxysmal atrial fibrillation, I would start patient on digoxin. We will resume anticoagulation. Start iron supplementation. Cardiology and Pulmonary have been consulted and notified. Itz Loja M.D. DR: SONIDO JOB#: [id number] CC:
[2017-02-22 04:00] VITALS: BP 128/89
[2017-02-22 05:07] LABS: MEAN CORPUSCULAR HEMOGLOBIN 26.8 PG (27.0-31.0); MEAN CORPUSCULAR HGB CONC 30.4 G/DL (32.0-36.0); MEAN CORPUSCULAR VOLUME 88 FL (80-99); MEAN PLATELET VOLUME 7.3 FL (6.5-10.1); PLATELET COUNT 238 K/UL (150-450); RED BLOOD COUNT 4.34 M/UL (4.70-6.10); RED CELL DISTRIBUTION WIDTH 21.8 % (11.6-14.8); WHITE BLOOD COUNT 7.6 K/UL (4.8-10.8)
[2017-02-22 05:10] LABS: INR 2.8 (0.9-1.1); PROTHROMBIN TIME 28.6 SEC (9.30-11.50)
[2017-02-22 05:43] LABS: ALANINE AMINOTRANSFERASE 15 U/L (3-41); ALBUMIN/GLOBULIN RATIO 0.6 (1.0-2.7); ANION GAP 14 (5-15); ASPARTATE AMINO TRANSFERASE 26 U/L (5-40); CARBON DIOXIDE 26 mEQ/L (20-30); CHLORIDE 100 mEQ/L (98-107); CREATININE 1.3 mg/dL (0.7-1.2); GLOMERULAR FILTRATION RATE > 60 mL/min (>60); HEMOLYSIS 0; POTASSIUM 4.1 mEQ/L (3.4-4.9); SODIUM 140 mEQ/L (135-145); TOTAL PROTEIN 7.4 g/dL (6.6-8.7)
[2017-02-22] MEDS: Solu-MEDROL 125mg Inj IV SCH ×2 (05:53→12:54)
[2017-02-22 07:24] LABS: LYMPHOCYTES % (MANUAL) 4 % (20-45); NEUTROPHILS % (MANUAL) 92 % (45-75); TOTAL CELLS COUNTED 100
[2017-02-22 07:25] LABS: BAND NEUTROPHILS % (MANUAL) 0 % (0-8); BASOPHILS % (MANUAL) 0 % (0-2); EOSINOPHILS % (MANUAL) 0 % (0-3); HYPOCHROMASIA 1+; PLATELET ESTIMATE ADEQUATE; PLATELET MORPHOLOGY NORMAL
[2017-02-22 08:00] VITALS: BP 136/95
[2017-02-22] MEDS: Lisinopril 2.5mg tab ORAL SCH (09:35)
[2017-02-22] MEDS: Digoxin 0.125mg tab ORAL SCH (09:35)
[2017-02-22 12:00] VITALS: BP 125/89
--- NOTE | 2017-02-22 12:45 | Consultation ---
DATE OF CONSULTATION: 02/21/2017 CARDIOLOGY CONSULTATION CONSULTING PHYSICIAN: Jensen Pathak M.D. REFERRING PHYSICIAN: Itz Loja M.D. REASON FOR CONSULTATION: Management of acute heart failure. HISTORY OF PRESENT ILLNESS: The patient is a very pleasant 56-year-old gentleman, who presents to the hospital with progressive worsening of shortness of breath that happens at rest with minimal exertion, NYHA class 4, cannot walk more than a block without getting out of breath, also has three and four pillow orthopnea, PND, and bilateral lower extremity edema for more than a week. 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. According to him, it showed normal coronary arteries. The patient is apparently noncompliant with his medication either due to lack of routine and regular Cardiology/primary care office visits or due to a dietary overindulgence itself and/or continuation of using illicit drugs. PAST MEDICAL HISTORY: 1. History of diabetes mellitus. 2. History of hypertension. 3. History of nonischemic cardiomyopathy with left ventricular ejection fraction approximately 10% to 15%. 4. History of chronic obstructive pulmonary disease. 5. History of human immunodeficiency virus disease. PAST SURGICAL HISTORY: None. MEDICATIONS: Allopurinol 300 mg daily, atorvastatin 80 mg p.o. daily, Genvoya 10 mg p.o. daily, Lexapro 5 mg p.o. daily, Lasix 40 mg p.o. twice daily, lisinopril 2.5 mg daily, warfarin 7.5 mg daily, and mg daily. SOCIAL HISTORY: Reports alcohol use and also tobacco use. He claims that he has not been using drugs lately. FAMILY HISTORY: No premature coronary artery disease or in the family. REVIEW OF SYSTEMS: A 12-system review done is essentially negative except what is mentioned in the history of present illness. PHYSICAL EXAMINATION: VITAL SIGNS: Blood pressure was 109/75, respirations 18, pulse of 126, temperature 98.8 degrees Fahrenheit, and O2 saturation 98% on room air. GENERAL: The patient is a very pleasant 56-year-old gentleman, in mild respiratory distress. Alert and oriented x4. HEENT: Atraumatic and normocephalic. Anicteric. Pupils are equal, round, and reactive to light and accommodation. Extraocular muscles intact. NECK: JVP up to 15 cm. No carotid bruit. Carotid upstroke is 2+ bilaterally. CARDIOVASCULAR: Normal S1 and S2. Regular rate and rhythm. No murmurs, gallops, or rubs. Tachycardic. PMI with lateral downward displacement. Also, there is presence of a S3 gallop. LUNGS: Clear to auscultation bilaterally. ABDOMEN: Soft, nontender, and nondistended. No hepatosplenomegaly. Positive bowel sounds. EXTREMITIES: No evidence of edema, clubbing, or cyanosis. LABORATORY FINDINGS: Sodium is 138, potassium is 4.3, chloride 99, bicarbonate 25, BUN of 22, creatinine 1.3, and glucose is 160. Calcium is 9.1. Troponin I was less than 0.3. ProBNP was 2597. INR was 2.6. WBC 3.5, hemoglobin 10.5, hematocrit 33.7, and platelet count is 184,000. A chest x-ray showed cardiomegaly with no evidence of pulmonary edema. ECG showed sinus tachycardia at a rate of 133, left ventricular hypertrophy with left ventricular hypertrophy repolarization abnormalities, and inferior wall infarct, age indeterminate. ASSESSMENT AND PLAN: The patient is a very unfortunate 56-year-old gentleman, seen in Cardiology consultation at the request of Dr. Loja. 1. Most likely acute on chronic systolic and diastolic heart failure due to medication noncompliance. We would like to start the patient on guideline directed medical therapy including adding carvedilol 3.125 mg twice daily and starting the patient on ANDREAS inhibitor at 5 mg daily. I would like to switch the diuretic to 40 mg furosemide twice daily and add metolazone 5 mg daily. The patient is volume overloaded. A 2D echocardiography shows severely increased intracardiac filling pressure, evidence of elevated pulmonary capillary wedge pressure, and severe left ventricular systolic dysfunction with left ventricular ejection fraction approximately 10% to 15%. It is not quite clear why the patient is on warfarin, but one theory is that the patient is on warfarin for severe left ventricular dysfunction to prevent formation of apical left ventricular thrombus. We will continue warfarin. The INR is within the therapeutic level. We will continue to check the creatinine on a daily basis. Fluid restriction less than 1500 mL has been ordered. We will continue to measure the patient's daily weights. 2. History of diabetes mellitus. 3. History of hypertension. 4. History of human immunodeficiency virus disease. 5. History of chronic obstructive pulmonary disease. 6. 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 I would like to thank Dr. Loja for allowing me to participate in the care of this patient. Jensen Pathak M.D. DR: ALICE JOB#: [id number] CC:
[2017-02-22] MEDS: NovoLOG Insulin Flexpen SUBQ SCH ×3 (13:13→20:51)
--- NOTE | 2017-02-22 13:19 | Pulmonology Progress Note ---
Assessment/Plan Assessment/Plan ASSESSMENT acute COPD exacerbation acute on chronic systolic heart failure exacerbation bullous emphysema respiratory distress cocaine cardiomyopathy, likely nonischemic HTN tachyarrhythmias PAF HIV status CRI anemia, iron deficiency elevated CEA DM hyperlipidemia PLAN OF CARE BIA status O2 to keep sat above 92% BiPAP prn pulmonary toilet IV steroids, taper empiric abx fup with CXR ECHO continue ANDREAS, Digoxin and diuresis ( no BB due to cocaine abuse ) cardio follows ST on tele, likely due to underlying process on Coumadin , INR therapeutic check T cell subsets -pending monitor renal parameters, avoid nephrotoxic renal parameters no change, likely chronic RI renal US negative BS management with SS of insulin, check HgA1c monitor counts, leukopenia likely due to underlying HIV status anemia w/up with evidence of iron deficiency anemia ( low iron, high TIBC) , transfuse prn check stool OB, CEA elevated -10.6 need GI eval due to GIBSON and elevated CEA - per PMD discretion check lipid panel case discussed and evaluated by supervising physician Subjective Allergies: Coded Allergies: No Known Allergies (Unverified , 12/05/16) Subjective no chest pain, + intermittent SOB, on RA pulse oximetry stable Objective Last 24 Hour Vital Signs Date Time Temp Pulse Resp B/P (MAP) Pulse Ox O2 Delivery O2 Flow Rate FiO2 02/22/17 12:00 98.0 123 18 125/89 97 Room Air 02/22/17 11:19 129 20 94 02/22/17 09:35 136/95 02/22/17 09:35 129 02/22/17 09:35 129 136/95 02/22/17 08:46 130 20 94 02/22/17 08:00 125 02/22/17 08:00 97.8 129 20 136/95 97 Room Air 02/22/17 06:35 128 17 93 02/22/17 04:00 97.7 122 28 128/89 96 Room Air 02/22/17 04:00 125 02/22/17 03:27 128 18 02/22/17 00:51 127 20 02/22/17 00:00 98.0 128 24 115/83 95 Room Air 02/22/17 00:00 130 02/21/17 23:05 126 20 02/21/17 21:11 129 20 02/21/17 20:55 121 131/80 02/21/17 20:00 97.0 121 20 131/80 98 Room Air 02/21/17 20:00 131 02/21/17 19:16 128 20 02/21/17 17:49 130/80 02/21/17 17:48 130 02/21/17 17:01 130 20 02/21/17 16:00 97.8 130 22 130/80 94 Room Air 02/21/17 16:00 130 02/21/17 15:13 125 18 02/21/17 14:00 129 26 129/97 100 Room Air Intake and Output 02/22/17 02/23/17 19:00 07:00 Intake Total 100 ml Balance 100 ml Intake Oral 100 ml Objective General Appearance: no apparent distress, awake, alert, weak, ill appearing AA male Lines, tubes and drains: peripheral HEENT: normocephalic, atraumatic, anicteric, mucous membranes moist Neck: supple Respiratory/Chest: no accessory muscle use, crackles/rales, expiratory wheezing - fgew isolaetd wheezes Cardiovascular/Chest: normal rate, tachycardia -/ST on tele, + S3 gallop Abdomen: normal bowel sounds, non tender, soft Extremities: normal range of motion, non-tender, no calf tenderness, normal capillary refill, - +1 edema BLE Neurologic: alert, responsive Musculoskeletal: normal muscle bulk Laboratory Tests 02/22/17 02:45: Urine Opiates Screen Negative, Urine Barbiturates Screen Negative, Phencyclidine (PCP) Screen Negative, Urine Amphetamines Screen PositiveH, Urine Benzodiazepines Screen Negative, Urine Cocaine Screen Negative, Urine Marijuana (THC) Screen Negative 02/22/17 04:10: White Blood Count [Pending], Red Blood Count 4.34L, Hemoglobin 11.6L, Hematocrit 38.2L, Mean Corpuscular Volume 88, Mean Corpuscular Hemoglobin 26.8L , Mean Corpuscular Hemoglobin Concent 30.4L, Red Cell Distribution Width 21.8H, Platelet Count 238, Mean Platelet Volume 7.3, Neutrophils (%) (Auto) , Lymphocytes (%) (Auto) , Monocytes (%) (Auto) , Eosinophils (%) (Auto) , Basophils (%) (Auto) , Differential Total Cells Counted 100, Neutrophils % ( Manual) 92H, Lymphocytes % (Manual) 4L, Monocytes % (Manual) 4, Eosinophils % ( Manual) 0, Basophils % (Manual) 0, Band Neutrophils 0, Lymphocytes [Pending], Platelet Estimate Adequate, Platelet Morphology Normal, Hypochromasia 1+, Prothrombin Time 28.6H, Prothromb Time International Ratio 2.8H, Sodium Level 140, Potassium Level 4.1, Chloride Level 100, Carbon Dioxide Level 26, Anion Gap 14, Blood Urea Nitrogen 34H, Creatinine 1.3H, Estimat Glomerular Filtration Rate > 60, Glucose Level 140H, Calcium Level 9.0, Total Bilirubin 0.9, Aspartate Amino Transf (AST/SGOT) 26, Alanine Aminotransferase (ALT/SGPT) 15, Alkaline Phosphatase 128, Total Protein 7.4, Albumin 2.9L, Globulin 4.5, Albumin /Globulin Ratio 0.6L, Percent CD3 Cells [Pending], Absolute CD3 Count [Pending] , Percent CD4 Cells [Pending], Absolute CD4 Count [Pending], T-Lymphocyte CD4/ CD8 Ratio [Pending], Percent CD8 Cells [Pending], Absolute CD8 Count [Pending] Current Medications Medications (Trade) Dose Ordered Sig/Rocio Route PRN Reason Start Time Stop Time Status Last Admin Dose Admin Acetaminophen (Tylenol) 650 mg Q4H PRN ORAL T>100.5 02/20/17 22:00 03/22/17 21:59 Albuterol/ Ipratropium (DuoNeb 0.5-3(2.5)mg/3ml) 3 ml Q4H PRN HHN dyspnea 02/20/17 22:00 02/25/17 21:59 Carvedilol (Coreg) 3.125 mg EVERY 12 HOURS ORAL 02/21/17 21:00 03/23/17 20:59 02/22/17 09:35 Clonidine HCl (Catapres) 0.1 mg Q4H PRN ORAL sbp more than 160 02/20/17 22:00 03/22/17 21:59 Dextrose (Dextrose 50%) STAT PRN IV Hypoglycemia 02/22/17 13:00 03/24/17 12:59 Digoxin (Lanoxin) 0.125 mg DAILY ORAL 02/21/17 18:00 03/23/17 17:59 02/22/17 09:35 Ferrous Sulfate (Feosol) 325 mg THREE TIMES A DAY ORAL 02/21/17 13:00 03/23/17 12:59 02/22/17 12:55 Furosemide (Lasix) 40 mg BID IV 02/21/17 21:00 03/23/17 20:59 02/22/17 09:34 Insulin Aspart (NovoLOG) BEFORE MEALS AND HS SUBQ 02/22/17 13:00 03/24/17 12:59 Levofloxacin (Levaquin) 500 mg QHS ORAL 02/22/17 21:00 03/01/17 20:59 Lisinopril (Zestril) 5 mg DAILY ORAL 02/21/17 18:00 03/23/17 17:59 02/22/17 09:35 Lorazepam (Ativan 2mg/ml 1ml) 0.5 mg Q4H PRN IV For Anxiety 02/20/17 22:00 02/27/17 21:59 02/21/17 23:18 Methylprednisolone Sodium Succinate (Solu-MEDROL) 60 mg EVERY 6 HOURS IV 02/21/17 00:00 03/23/17 00:00 02/22/17 12:54 Metolazone (Zaroxolyn) 5 mg DAILY ORAL 02/21/17 18:00 03/23/17 17:59 02/22/17 09:35 Nitroglycerin (Ntg) 0.4 mg Q5M X 3 DOSES PRN SL Prn Chest Pain 02/20/17 22:00 03/22/17 21:59 Ondansetron HCl (Zofran) 4 mg Q6H PRN IVP Nausea & Vomiting 02/20/17 22:00 03/22/17 21:59 Promethazine HCl/ Codeine (Phenergan with Codeine) 5 ml Q6H PRN ORAL cough 02/20/17 22:00 03/22/17 21:59 Tamsulosin HCl (Flomax) 0.4 mg BEDTIME ORAL 02/21/17 21:00 03/23/17 20:59 02/21/17 20:55 Temazepam (Restoril) 15 mg HSPRN PRN ORAL Insomnia 02/20/17 22:00 02/27/17 21:59 Warfarin Sodium (Coumadin per pharmacy) 1 ea DAILY PRN MISC Per rx protocol 02/21/17 15:00 03/23/17 14:59 Warfarin Sodium (Coumadin) 7 mg COUMADIN ORAL 02/22/17 17:00 02/27/17 16:59 Frederick ([facility])Ashley NP Feb 22, 2017 13:19
--- NOTE | 2017-02-22 13:43 | Internal Med Progress Note ---
Subjective Date of Service: Feb 22, 2017 Physician Name Rex Cavazos Attending Physician Itz Loja MD Current Medications Medications (Trade) Dose Ordered Sig/Rocio Route PRN Reason Start Time Stop Time Status Last Admin Dose Admin Acetaminophen (Tylenol) 650 mg Q4H PRN ORAL T>100.5 02/20/17 22:00 03/22/17 21:59 Albuterol/ Ipratropium (DuoNeb 0.5-3(2.5)mg/3ml) 3 ml Q4H PRN HHN dyspnea 02/20/17 22:00 02/25/17 21:59 Carvedilol (Coreg) 3.125 mg EVERY 12 HOURS ORAL 02/21/17 21:00 03/23/17 20:59 02/22/17 09:35 Clonidine HCl (Catapres) 0.1 mg Q4H PRN ORAL sbp more than 160 02/20/17 22:00 03/22/17 21:59 Dextrose (Dextrose 50%) STAT PRN IV Hypoglycemia 02/22/17 13:00 03/24/17 12:59 Digoxin (Lanoxin) 0.125 mg DAILY ORAL 02/21/17 18:00 03/23/17 17:59 02/22/17 09:35 Ferrous Sulfate (Feosol) 325 mg THREE TIMES A DAY ORAL 02/21/17 13:00 03/23/17 12:59 02/22/17 12:55 Furosemide (Lasix) 40 mg BID IV 02/21/17 21:00 03/23/17 20:59 02/22/17 09:34 Insulin Aspart (NovoLOG) BEFORE MEALS AND HS SUBQ 02/22/17 13:00 03/24/17 12:59 02/22/17 13:13 Levofloxacin (Levaquin) 500 mg QHS ORAL 02/22/17 21:00 03/01/17 20:59 Lisinopril (Zestril) 5 mg DAILY ORAL 02/21/17 18:00 03/23/17 17:59 02/22/17 09:35 Lorazepam (Ativan 2mg/ml 1ml) 0.5 mg Q4H PRN IV For Anxiety 02/20/17 22:00 02/27/17 21:59 02/21/17 23:18 Methylprednisolone Sodium Succinate (Solu-MEDROL) 60 mg Q8HR IV 02/22/17 14:00 03/23/17 00:00 UNV Metolazone (Zaroxolyn) 5 mg DAILY ORAL 02/21/17 18:00 03/23/17 17:59 02/22/17 09:35 Nitroglycerin (Ntg) 0.4 mg Q5M X 3 DOSES PRN SL Prn Chest Pain 02/20/17 22:00 03/22/17 21:59 Ondansetron HCl (Zofran) 4 mg Q6H PRN IVP Nausea & Vomiting 02/20/17 22:00 03/22/17 21:59 Promethazine HCl/ Codeine (Phenergan with Codeine) 5 ml Q6H PRN ORAL cough 02/20/17 22:00 03/22/17 21:59 Tamsulosin HCl (Flomax) 0.4 mg BEDTIME ORAL 02/21/17 21:00 03/23/17 20:59 02/21/17 20:55 Temazepam (Restoril) 15 mg HSPRN PRN ORAL Insomnia 02/20/17 22:00 02/27/17 21:59 Warfarin Sodium (Coumadin per pharmacy) 1 ea DAILY PRN MISC Per rx protocol 02/21/17 15:00 03/23/17 14:59 Warfarin Sodium (Coumadin) 7 mg COUMADIN ORAL 02/22/17 17:00 02/27/17 16:59 Allergies: Coded Allergies: No Known Allergies (Unverified , 12/05/16) ROS Limited/Unobtainable: No Constitutional: Reports: no symptoms HEENT: Reports: no symptoms Cardiovascular: Reports: no symptoms Respiratory: Reports: shortness of breath Gastrointestinal/Abdominal: Reports: no symptoms Genitourinary: Reports: no symptoms Neurologic/Psychiatric: Reports: no symptoms Subjective 56 YO M admitted with shortness of breath. BIA. Off BIPAP; tolerating room air. Cover for James Loja. Objective Last Vital Signs Date Time Temp Pulse Resp B/P (MAP) Pulse Ox O2 Delivery O2 Flow Rate FiO2 02/22/17 13:27 128 20 94 02/22/17 12:00 98.0 125/89 Room Air 02/20/17 23:00 40 General Appearance: WD/WN, no apparent distress, alert EENT: PERRL/EOMI, normal ENT inspection, TMs normal Neck: non-tender, normal alignment, supple, normal inspection Cardiovascular: normal peripheral pulses, regular rhythm, no gallop/murmur, no JVD, tachycardia Respiratory/Chest: chest wall non-tender, respiratory distress, accessory muscle use, crackles/rales, rhonchi - bilaterally, expiratory wheezing Abdomen: normal bowel sounds, non tender, soft, no organomegaly, no mass Extremities: normal range of motion Edema: trace edema Skin: normal pigmentation, warm/dry Laboratory Tests Test 02/22/17 02:45 02/22/17 04:10 Urine Opiates Screen Negative (NEGATIVE) Urine Barbiturates Screen Negative (NEGATIVE) Phencyclidine (PCP) Screen Negative (NEGATIVE) Urine Amphetamines Screen Positive (NEGATIVE) H Urine Benzodiazepines Screen Negative (NEGATIVE) Urine Cocaine Screen Negative (NEGATIVE) Urine Marijuana (THC) Screen Negative (NEGATIVE) White Blood Count Pending Red Blood Count 4.34 M/UL (4.70-6.10) L Hemoglobin 11.6 G/DL (14.2-18.0) L Hematocrit 38.2 % (42.0-52.0) L Mean Corpuscular Volume 88 FL (80-99) Mean Corpuscular Hemoglobin 26.8 PG (27.0-31.0) L Mean Corpuscular Hemoglobin Concent 30.4 G/DL (32.0-36.0) L Red Cell Distribution Width 21.8 % (11.6-14.8) H Platelet Count 238 K/UL (150-450) Mean Platelet Volume 7.3 FL (6.5-10.1) Neutrophils (%) (Auto) % (45.0-75.0) Lymphocytes (%) (Auto) % (20.0-45.0) Monocytes (%) (Auto) % (1.0-10.0) Eosinophils (%) (Auto) % (0.0-3.0) Basophils (%) (Auto) % (0.0-2.0) Differential Total Cells Counted 100 Neutrophils % (Manual) 92 % (45-75) H Lymphocytes % (Manual) 4 % (20-45) L Monocytes % (Manual) 4 % (1-10) Eosinophils % (Manual) 0 % (0-3) Basophils % (Manual) 0 % (0-2) Band Neutrophils 0 % (0-8) Lymphocytes Pending Platelet Estimate Adequate Platelet Morphology Normal Hypochromasia 1+ Prothrombin Time 28.6 SEC (9.30-11.50) H Prothromb Time International Ratio 2.8 (0.9-1.1) H Sodium Level 140 mEQ/L (135-145) Potassium Level 4.1 mEQ/L (3.4-4.9) Chloride Level 100 mEQ/L (98-107) Carbon Dioxide Level 26 mEQ/L (20-30) Anion Gap 14 (5-15) Blood Urea Nitrogen 34 mg/dL (7-23) H Creatinine 1.3 mg/dL (0.7-1.2) H Estimat Glomerular Filtration Rate > 60 mL/min (>60) Glucose Level 140 mg/dL (74-106) H Calcium Level 9.0 mg/dL (8.6-10.2) Total Bilirubin 0.9 mg/dL (0.0-1.2) Aspartate Amino Transf (AST/SGOT) 26 U/L (5-40) Alanine Aminotransferase (ALT/SGPT) 15 U/L (3-41) Alkaline Phosphatase 128 U/L (40-129) Total Protein 7.4 g/dL (6.6-8.7) Albumin 2.9 g/dL (3.5-5.2) L Globulin 4.5 g/dL Albumin/Globulin Ratio 0.6 (1.0-2.7) L Percent CD3 Cells Pending Absolute CD3 Count Pending Percent CD4 Cells Pending Absolute CD4 Count Pending T-Lymphocyte CD4/CD8 Ratio Pending Percent CD8 Cells Pending Absolute CD8 Count Pending Intake and Output 02/22/17 02/23/17 19:00 07:00 Intake Total 460 ml Output Total 2200 ml Balance -1740 ml Intake Oral 460 ml Output Urine Total 2200 ml Assessment/Plan Problem List: (1) Respiratory failure Assessment & Plan: Off BIPAP. Follow pulmonary recs. Continue pulm toilet. (2) Cardiomyopathy (3) HTN (hypertension) Assessment & Plan: Continue lisinopril and coreg (4) Hypercholesteremia (5) BPH (benign prostatic hyperplasia) Assessment & Plan: Continue flomax (6) HIV disease (7) COPD exacerbation Assessment & Plan: See pulmonary note. Cont IV solumedrol and albuterol nebs. (8) CHF exacerbation Assessment & Plan: See cardilology note. Continue digoxin, coreg, metolazone and lasix (9) EF 20% Status: not improved REX CAVAZOS Feb 22, 2017 13:43
[2017-02-22] MEDS ORDERED: Solu-MEDROL 125mg Inj IV SCH (14:00)
[2017-02-22 16:00] VITALS: BP 123/74
[2017-02-22] MEDS ORDERED: WARFARIN SOD ORAL SCH ×2 (17:00)
[2017-02-22 20:00] VITALS: BP 100/55
[2017-02-22] MEDS: Tamsulosin 0.4mg cap ORAL SCH (20:46)
[2017-02-22] MEDS: Levofloxacin 500mg tab ORAL SCH (20:46)
--- NOTE | 2017-02-22 21:56 | Cardiology Progress Note ---
Assessment/Plan Assessment/Plan 1. Acute on chronic systolic and diastolic heart failure due to medication noncompliance, LVEF at 10% to 15%. Continue guideline-directed medical therapy. Will increase coreg and lisinopril. 2. History of diabetes mellitus. 3. History of hypertension. 4. History of human immunodeficiency virus disease. 5. History of chronic obstructive pulmonary disease. Subjective Subjective Sinus tachycardia at 115. Objective Last 24 Hour Vital Signs Date Time Temp Pulse Resp B/P (MAP) Pulse Ox O2 Delivery O2 Flow Rate FiO2 02/22/17 20:46 126 123/74 02/22/17 20:00 98.4 121 20 100/55 95 Room Air 02/22/17 17:20 126 21 95 02/22/17 16:00 97.6 125 19 123/74 94 Room Air 02/22/17 16:00 124 02/22/17 15:18 129 23 94 02/22/17 13:27 128 20 94 02/22/17 12:00 120 02/22/17 12:00 98.0 123 18 125/89 97 Room Air 02/22/17 11:19 129 20 94 02/22/17 09:35 136/95 02/22/17 09:35 129 02/22/17 09:35 129 136/95 02/22/17 08:46 130 20 94 02/22/17 08:00 125 02/22/17 08:00 97.8 129 20 136/95 97 Room Air 02/22/17 06:35 128 17 93 02/22/17 04:00 97.7 122 28 128/89 96 Room Air 02/22/17 04:00 125 02/22/17 03:27 128 18 02/22/17 00:51 127 20 02/22/17 00:00 98.0 128 24 115/83 95 Room Air 02/22/17 00:00 130 02/21/17 23:05 126 20 Intake and Output 02/22/17 02/23/17 19:00 07:00 Intake Total 640 ml Output Total 3000 ml Balance -2360 ml Intake Oral 640 ml Output Urine Total 3000 ml CXR: other 2D Echo: LVEF 10-15%, LV enalrgement, Restrictive LV physiology Laboratory Tests Test 02/22/17 02:45 02/22/17 04:10 Urine Opiates Screen Negative (NEGATIVE) Urine Barbiturates Screen Negative (NEGATIVE) Phencyclidine (PCP) Screen Negative (NEGATIVE) Urine Amphetamines Screen Positive (NEGATIVE) H Urine Benzodiazepines Screen Negative (NEGATIVE) Urine Cocaine Screen Negative (NEGATIVE) Urine Marijuana (THC) Screen Negative (NEGATIVE) White Blood Count Pending Red Blood Count 4.34 M/UL (4.70-6.10) L Hemoglobin 11.6 G/DL (14.2-18.0) L Hematocrit 38.2 % (42.0-52.0) L Mean Corpuscular Volume 88 FL (80-99) Mean Corpuscular Hemoglobin 26.8 PG (27.0-31.0) L Mean Corpuscular Hemoglobin Concent 30.4 G/DL (32.0-36.0) L Red Cell Distribution Width 21.8 % (11.6-14.8) H Platelet Count 238 K/UL (150-450) Mean Platelet Volume 7.3 FL (6.5-10.1) Neutrophils (%) (Auto) % (45.0-75.0) Lymphocytes (%) (Auto) % (20.0-45.0) Monocytes (%) (Auto) % (1.0-10.0) Eosinophils (%) (Auto) % (0.0-3.0) Basophils (%) (Auto) % (0.0-2.0) Differential Total Cells Counted 100 Neutrophils % (Manual) 92 % (45-75) H Lymphocytes % (Manual) 4 % (20-45) L Monocytes % (Manual) 4 % (1-10) Eosinophils % (Manual) 0 % (0-3) Basophils % (Manual) 0 % (0-2) Band Neutrophils 0 % (0-8) Lymphocytes Pending Platelet Estimate Adequate Platelet Morphology Normal Hypochromasia 1+ Prothrombin Time 28.6 SEC (9.30-11.50) H Prothromb Time International Ratio 2.8 (0.9-1.1) H Sodium Level 140 mEQ/L (135-145) Potassium Level 4.1 mEQ/L (3.4-4.9) Chloride Level 100 mEQ/L (98-107) Carbon Dioxide Level 26 mEQ/L (20-30) Anion Gap 14 (5-15) Blood Urea Nitrogen 34 mg/dL (7-23) H Creatinine 1.3 mg/dL (0.7-1.2) H Estimat Glomerular Filtration Rate > 60 mL/min (>60) Glucose Level 140 mg/dL (74-106) H Calcium Level 9.0 mg/dL (8.6-10.2) Total Bilirubin 0.9 mg/dL (0.0-1.2) Aspartate Amino Transf (AST/SGOT) 26 U/L (5-40) Alanine Aminotransferase (ALT/SGPT) 15 U/L (3-41) Alkaline Phosphatase 128 U/L (40-129) Total Protein 7.4 g/dL (6.6-8.7) Albumin 2.9 g/dL (3.5-5.2) L Globulin 4.5 g/dL Albumin/Globulin Ratio 0.6 (1.0-2.7) L Percent CD3 Cells Pending Absolute CD3 Count Pending Percent CD4 Cells Pending Absolute CD4 Count Pending T-Lymphocyte CD4/CD8 Ratio Pending Percent CD8 Cells Pending Absolute CD8 Count Pending Objective HEENT: Atraumatic and normocephalic. Anicteric. Pupils are equal, round, and reactive to light and accommodation. Extraocular muscles intact. NECK: JVP up to 15 cm. No carotid bruit. Carotid upstroke is 2+ bilaterally. CARDIOVASCULAR: Normal S1 and S2. Regular rate and rhythm. No murmurs, gallops, or rubs. Tachycardic. PMI with lateral downward displacement. Also, there is presence of a S3 gallop. LUNGS: Clear to auscultation bilaterally. ABDOMEN: Soft, nontender, and nondistended. No hepatosplenomegaly. Positive bowel sounds. EXTREMITIES: No evidence of edema, clubbing, or cyanosis. RENATA BEAN Feb 22, 2017 21:56
--- NOTE | 2017-02-23 | Consultation ---
DATE OF CONSULTATION: 02/22/2017 UROLOGY CONSULTATION CONSULTING PHYSICIAN: Spencer Paniagua M.D. ATTENDING PHYSICIAN: Itz Loja M.D. REQUESTING PHYSICIAN: Itz Loja M.D. REASON FOR CONSULTATION: The patient is a 56-year-old male, admitted to the hospital with congestive heart failure and shortness of breath. He has been reporting difficult urination and Givens catheter was placed yesterday. The patient is tolerating the Givens catheter currently and relatively comfortable. The patient complains of difficult bowel movements now for a number of weeks, perhaps exacerbating his symptoms. PAST MEDICAL HISTORY: Significant for having HIV, COPD, hypertension, gout, and increased lipid levels. ALLERGIES: He has no known drug allergies. MEDICATIONS PRIOR TO ADMISSION: Flomax and prednisone. PAST SURGICAL HISTORY: He has had a lung surgery for his COPD. FAMILY HISTORY: Noncontributory. REVIEW OF SYSTEMS: Relatively noncontributory. PHYSICAL EXAMINATION: VITAL SIGNS: He is currently afebrile, heart rate of 123, and blood pressure 125/80. HEAD AND NECK: No palpable abnormalities. LUNGS: Shallow breath sounds. HEART: Tachycardic. ABDOMEN: Soft and nontender. BACK: No CVA tenderness. GENITOURINARY: Testicles are relatively atrophic without masses. Penis within normal limits. Givens catheter in place. RECTAL: Prostate has [id number] enlargement. A little bit of tenderness noted with the prostate. Sphincter tone is a little loose. LABORATORY AND DIAGNOSTIC DATA: White blood cell count 3500 and hemoglobin 10.5. Creatinine of 1.3. Renal ultrasound shows no hydronephrosis or stones, bladder with Givens catheter in place. ASSESSMENT: He has been having difficult urination. He likely has some element of prostatitis and prostate enlargement. The patient has been on Flomax and he is not aware of how long he has been on this. RECOMMENDATIONS: My recommendations are to continue the Givens catheter while he is having treatment for his congestive heart failure and COPD, and as long as he is tolerating the Givens catheter, to have it remain in place. The patient may benefit from being on Flomax and Proscar to help his prostate condition and also being on Levaquin may help any element of prostatitis, which may be present currently. The patient is currently on Levaquin. The patient will also benefit from being relieved of any element of constipation as he feels this has gone hand in hand with his urinary difficulties. Currently, I recommend the catheter stay in and he will be followed during this hospital stay for possible removal of Givens catheter. Spencer Paniagua DR: Jewel JOB#: [id number] CC:
[2017-02-23 00:43] VITALS: BP 98/59
[2017-02-23 04:00] VITALS: BP 108/65
[2017-02-23 05:06] LABS: MEAN CORPUSCULAR HEMOGLOBIN 26.7 PG (27.0-31.0); MEAN CORPUSCULAR HGB CONC 30.4 G/DL (32.0-36.0); MEAN CORPUSCULAR VOLUME 88 FL (80-99); MEAN PLATELET VOLUME 6.1 FL (6.5-10.1); PLATELET COUNT 245 K/UL (150-450); RED BLOOD COUNT 4.92 M/UL (4.70-6.10); RED CELL DISTRIBUTION WIDTH 22.4 % (11.6-14.8); WHITE BLOOD COUNT 11.5 K/UL (4.8-10.8)
[2017-02-23] MEDS: NovoLOG Insulin Flexpen SUBQ SCH ×4 (05:28→20:43)
[2017-02-23 05:29] LABS: ALANINE AMINOTRANSFERASE 13 U/L (3-41); ALBUMIN/GLOBULIN RATIO 0.6 (1.0-2.7); ANION GAP 13 (5-15); ASPARTATE AMINO TRANSFERASE 23 U/L (5-40); CARBON DIOXIDE 29 mEQ/L (20-30); CHLORIDE 100 mEQ/L (98-107); CREATININE 1.1 mg/dL (0.7-1.2); GLOMERULAR FILTRATION RATE > 60 mL/min (>60); HEMOLYSIS 4; POTASSIUM 3.4 mEQ/L (3.4-4.9); SODIUM 142 mEQ/L (135-145); TOTAL PROTEIN 6.7 g/dL (6.6-8.7)
[2017-02-23 05:44] LABS: INR 4.1 (0.9-1.1)
[2017-02-23 08:00] VITALS: BP 110/69
[2017-02-23] MEDS: Digoxin 0.125mg tab ORAL SCH (08:54)
[2017-02-23] MEDS ORDERED: Lisinopril 10mg tab ORAL SCH (09:00)
[2017-02-23] MEDS ORDERED: Solu-MEDROL 125mg Inj IV SCH (09:00)
[2017-02-23 09:38] LABS: ANISOCYTOSIS 2+; BAND NEUTROPHILS % (MANUAL) 0 % (0-8); BASOPHILS % (MANUAL) 0 % (0-2); EOSINOPHILS % (MANUAL) 0 % (0-3); LYMPHOCYTES % (MANUAL) 3 % (20-45); NEUTROPHILS % (MANUAL) 94 % (45-75); PLATELET ESTIMATE ADEQUATE; PLATELET MORPHOLOGY NORMAL; TOTAL CELLS COUNTED 100
[2017-02-23 09:39] LABS: HYPOCHROMASIA 1+
[2017-02-23 09:42] LABS: BURR CELLS OCCASIONAL; OVALOCYTES RARE; SCHISTOCYTES RARE; TARGET CELLS RARE
--- NOTE | 2017-02-23 10:51 | General Progress Note ---
Assessment/Plan Status: stable Assessment/Plan 1. Acute on chronic chronic obstructive pulmonary disease exacerbation. 2. Bronchitis. 3. Cardiomyopathy with ejection fraction less than 20. 4. Tachyarrhythmia - differential paroxysmal atrial fibrillation, junctional rhythm. 5. Hypertension. 6. Hyperlipidemia. 7. Benign prostatic hypertrophy. 8. Human immunodeficiency virus. 9. Substance abuse. 10. Gastrointestinal and deep vein thrombosis prophylaxis. Plan: HyperCoagulation state Will proceed with the trial for Franz removal at urology discretion will followup with cardiology , Urology and pulmonary recommendations Subjective ROS Limited/Unobtainable: No Constitutional: Reports: no symptoms HEENT: Reports: no symptoms Cardiovascular: Reports: no symptoms Respiratory: Reports: no symptoms Allergies: Coded Allergies: No Known Allergies (Unverified , 12/05/16) Objective Last 24 Hour Vital Signs Date Time Temp Pulse Resp B/P (MAP) Pulse Ox O2 Delivery O2 Flow Rate FiO2 02/23/17 08:54 127 110/69 02/23/17 08:54 110/69 02/23/17 08:54 127 02/23/17 08:00 97.8 127 20 110/69 97 Room Air 02/23/17 08:00 127 02/23/17 06:54 120 20 95 02/23/17 04:00 97.4 122 20 108/65 96 Room Air 02/23/17 04:00 123 02/23/17 00:43 97.7 121 20 98/59 94 Room Air 02/23/17 00:00 125 02/22/17 20:46 126 123/74 02/22/17 20:00 129 02/22/17 20:00 98.4 121 20 100/55 95 Room Air 02/22/17 17:20 126 21 95 02/22/17 16:00 97.6 125 19 123/74 94 Room Air 02/22/17 16:00 124 02/22/17 15:18 129 23 94 02/22/17 13:27 128 20 94 02/22/17 12:00 120 02/22/17 12:00 98.0 123 18 125/89 97 Room Air 02/22/17 11:19 129 20 94 Laboratory Tests 02/23/17 04:15: White Blood Count 11.5#H, Red Blood Count 4.92, Hemoglobin 13.1L, Hematocrit 43.2, Mean Corpuscular Volume 88, Mean Corpuscular Hemoglobin 26.7L, Mean Corpuscular Hemoglobin Concent 30.4L, Red Cell Distribution Width 22.4H, Platelet Count 245, Mean Platelet Volume 6.1L, Neutrophils (%) (Auto) , Lymphocytes (%) (Auto) , Monocytes (%) (Auto) , Eosinophils (%) (Auto) , Basophils (%) (Auto) , Differential Total Cells Counted 100, Neutrophils % ( Manual) 94H, Lymphocytes % (Manual) 3L, Monocytes % (Manual) 3, Eosinophils % ( Manual) 0, Basophils % (Manual) 0, Band Neutrophils 0, Platelet Estimate Adequate, Platelet Morphology Normal, Hypochromasia 1+, Anisocytosis 2+, Target Cells Rare, Ovalocytes Rare, Sanjeev Cells Occasional, Schistocytes Rare, Prothrombin Time 42.0H, Prothromb Time International Ratio 4.1H, Sodium Level 142, Potassium Level 3.4, Chloride Level 100, Carbon Dioxide Level 29, Anion Gap 13, Blood Urea Nitrogen 39H, Creatinine 1.1, Estimat Glomerular Filtration Rate > 60, Glucose Level 118H, Calcium Level 9.0, Total Bilirubin 0.8, Aspartate Amino Transf (AST/SGOT) 23, Alanine Aminotransferase (ALT/SGPT) 13, Alkaline Phosphatase 137H, Pro-B-Type Natriuretic Peptide 5419H, Total Protein 6.7, Albumin 2.6L, Globulin 4.1, Albumin/Globulin Ratio 0.6L Height (Feet): 5 Height (Inches): 6.00 Weight (Pounds): 169 General Appearance: no apparent distress EENT: PERRL/EOMI Neck: supple Cardiovascular: normal rate Respiratory/Chest: rhonchi - bilaterally Abdomen: soft Genitourinary/Rectal: other - franz in place Edema: trace edema Neurologic: corporate concierge II-XII grossly normal Itz Loja MD Feb 23, 2017 10:51
--- NOTE | 2017-02-23 11:01 | Pulmonology Progress Note ---
Assessment/Plan Problems: (1) Acute respiratory failure (2) EF 10% (3) COPD exacerbation (4) BPH (benign prostatic hyperplasia) (5) Bullous emphysema (6) Cardiomyopathy Assessment/Plan diuresed 11 liters so far still has franz telemetry dc planning Subjective ROS Limited/Unobtainable: No Interval Events: feeling better, Constitutional: Reports: no symptoms HEENT: Repors: no symptoms Respiratory: Reports: no symptoms Allergies: Coded Allergies: No Known Allergies (Unverified , 12/05/16) Objective Last 24 Hour Vital Signs Date Time Temp Pulse Resp B/P (MAP) Pulse Ox O2 Delivery O2 Flow Rate FiO2 02/23/17 08:54 127 110/69 02/23/17 08:54 110/69 02/23/17 08:54 127 02/23/17 08:00 97.8 127 20 110/69 97 Room Air 02/23/17 08:00 127 02/23/17 06:54 120 20 95 02/23/17 04:00 97.4 122 20 108/65 96 Room Air 02/23/17 04:00 123 02/23/17 00:43 97.7 121 20 98/59 94 Room Air 02/23/17 00:00 125 02/22/17 20:46 126 123/74 02/22/17 20:00 129 02/22/17 20:00 98.4 121 20 100/55 95 Room Air 02/22/17 17:20 126 21 95 02/22/17 16:00 97.6 125 19 123/74 94 Room Air 02/22/17 16:00 124 02/22/17 15:18 129 23 94 02/22/17 13:27 128 20 94 02/22/17 12:00 120 02/22/17 12:00 98.0 123 18 125/89 97 Room Air 02/22/17 11:19 129 20 94 General Appearance: WD/WN Respiratory/Chest: chest wall non-tender, lungs clear Cardiovascular: normal peripheral pulses, normal rate, regular rhythm Abdomen: normal bowel sounds, no organomegaly Extremities: no cyanosis Skin: no lesions Laboratory Tests 02/23/17 04:15: White Blood Count 11.5#H, Red Blood Count 4.92, Hemoglobin 13.1L, Hematocrit 43.2, Mean Corpuscular Volume 88, Mean Corpuscular Hemoglobin 26.7L, Mean Corpuscular Hemoglobin Concent 30.4L, Red Cell Distribution Width 22.4H, Platelet Count 245, Mean Platelet Volume 6.1L, Neutrophils (%) (Auto) , Lymphocytes (%) (Auto) , Monocytes (%) (Auto) , Eosinophils (%) (Auto) , Basophils (%) (Auto) , Differential Total Cells Counted 100, Neutrophils % ( Manual) 94H, Lymphocytes % (Manual) 3L, Monocytes % (Manual) 3, Eosinophils % ( Manual) 0, Basophils % (Manual) 0, Band Neutrophils 0, Platelet Estimate Adequate, Platelet Morphology Normal, Hypochromasia 1+, Anisocytosis 2+, Target Cells Rare, Ovalocytes Rare, Sanjeev Cells Occasional, Schistocytes Rare, Prothrombin Time 42.0H, Prothromb Time International Ratio 4.1H, Sodium Level 142, Potassium Level 3.4, Chloride Level 100, Carbon Dioxide Level 29, Anion Gap 13, Blood Urea Nitrogen 39H, Creatinine 1.1, Estimat Glomerular Filtration Rate > 60, Glucose Level 118H, Calcium Level 9.0, Total Bilirubin 0.8, Aspartate Amino Transf (AST/SGOT) 23, Alanine Aminotransferase (ALT/SGPT) 13, Alkaline Phosphatase 137H, Pro-B-Type Natriuretic Peptide 5419H, Total Protein 6.7, Albumin 2.6L, Globulin 4.1, Albumin/Globulin Ratio 0.6L Current Medications Medications (Trade) Dose Ordered Sig/Rocio Route PRN Reason Start Time Stop Time Status Last Admin Dose Admin Acetaminophen (Tylenol) 650 mg Q4H PRN ORAL T>100.5 02/20/17 22:00 03/22/17 21:59 Albuterol/ Ipratropium (DuoNeb 0.5-3(2.5)mg/3ml) 3 ml Q4H PRN HHN dyspnea 02/20/17 22:00 02/25/17 21:59 Carvedilol (Coreg) 6.25 mg EVERY 12 HOURS ORAL 02/23/17 09:00 03/25/17 08:59 02/23/17 08:54 Clonidine HCl (Catapres) 0.1 mg Q4H PRN ORAL sbp more than 160 02/20/17 22:00 03/22/17 21:59 Dextrose (Dextrose 50%) STAT PRN IV Hypoglycemia 02/22/17 13:00 03/24/17 12:59 Digoxin (Lanoxin) 0.125 mg DAILY ORAL 02/21/17 18:00 03/23/17 17:59 02/23/17 08:54 Ferrous Sulfate (Feosol) 325 mg THREE TIMES A DAY ORAL 02/21/17 13:00 03/23/17 12:59 02/23/17 08:54 Furosemide (Lasix) 40 mg BID IV 02/21/17 21:00 03/23/17 20:59 02/23/17 08:55 Insulin Aspart (NovoLOG) BEFORE MEALS AND HS SUBQ 02/22/17 13:00 03/24/17 12:59 02/23/17 05:28 Levofloxacin (Levaquin) 500 mg QHS ORAL 02/22/17 21:00 03/01/17 20:59 02/22/17 20:46 Lisinopril (Zestril) 10 mg DAILY ORAL 02/23/17 09:00 03/25/17 08:59 02/23/17 08:54 Lorazepam (Ativan 2mg/ml 1ml) 0.5 mg Q4H PRN IV For Anxiety 02/20/17 22:00 02/27/17 21:59 02/21/17 23:18 Methylprednisolone Sodium Succinate (Solu-MEDROL) 60 mg Q12HR IV 02/23/17 09:00 03/25/17 08:59 02/23/17 08:55 Metolazone (Zaroxolyn) 5 mg DAILY ORAL 02/21/17 18:00 03/23/17 17:59 02/23/17 08:55 Nitroglycerin (Ntg) 0.4 mg Q5M X 3 DOSES PRN SL Prn Chest Pain 02/20/17 22:00 03/22/17 21:59 Ondansetron HCl (Zofran) 4 mg Q6H PRN IVP Nausea & Vomiting 02/20/17 22:00 03/22/17 21:59 Promethazine HCl/ Codeine (Phenergan with Codeine) 5 ml Q6H PRN ORAL cough 02/20/17 22:00 03/22/17 21:59 Tamsulosin HCl (Flomax) 0.4 mg BEDTIME ORAL 02/21/17 21:00 03/23/17 20:59 02/22/17 20:46 Temazepam (Restoril) 15 mg HSPRN PRN ORAL Insomnia 02/20/17 22:00 02/27/17 21:59 Warfarin Sodium (Coumadin per pharmacy) 1 ea DAILY PRN MISC Per rx protocol 02/21/17 15:00 03/23/17 14:59 DALLIN LORD Feb 23, 2017 11:01
[2017-02-23 11:30] VITALS: BP 115/75
--- NOTE | 2017-02-23 12:27 | Diagnostic Imaging Report ---
Indication: Dyspnea Comparison: 02/20/17 A single view chest radiograph was obtained. Findings: Apical bullous disease demonstrated worse on the right. Heart is enlarged. No definite infiltrate seen. Some scarring or atelectasis noted at the left lung base. Impression: No acute disease
--- NOTE | 2017-02-23 13:26 | Cardiology Progress Note ---
Assessment/Plan Assessment/Plan 1. Acute on chronic systolic and diastolic heart failure due to medication noncompliance, LVEF at 10% to 15%. Continue guideline-directed medical therapy. Need to optimize medical therapy. Continue lisinopril. I&O negative ~6 liter in the past 48 hours. 2. Sinus tachycardia due to acute CHF, increase coreg. 3. History of diabetes mellitus. 4. History of hypertension. 5. History of human immunodeficiency virus disease. 6. History of chronic obstructive pulmonary disease. Subjective Subjective Sinus tachycardia at 118. Feeling less SOB. Objective Last 24 Hour Vital Signs Date Time Temp Pulse Resp B/P (MAP) Pulse Ox O2 Delivery O2 Flow Rate FiO2 02/23/17 11:30 97.9 115 22 115/75 97 Room Air 02/23/17 11:25 120 02/23/17 08:54 127 110/69 02/23/17 08:54 110/69 02/23/17 08:54 127 02/23/17 08:00 97.8 127 20 110/69 97 Room Air 02/23/17 08:00 127 02/23/17 06:54 120 20 95 02/23/17 04:00 97.4 122 20 108/65 96 Room Air 02/23/17 04:00 123 02/23/17 00:43 97.7 121 20 98/59 94 Room Air 02/23/17 00:00 125 02/22/17 20:46 126 123/74 02/22/17 20:00 129 02/22/17 20:00 98.4 121 20 100/55 95 Room Air 02/22/17 17:20 126 21 95 02/22/17 16:00 97.6 125 19 123/74 94 Room Air 02/22/17 16:00 124 02/22/17 15:18 129 23 94 02/22/17 13:27 128 20 94 2D Echo: LVEF 10-15%, LV enalrgement, Restrictive LV physiology Laboratory Tests Test 02/23/17 04:15 White Blood Count 11.5 K/UL (4.8-10.8) #H Red Blood Count 4.92 M/UL (4.70-6.10) Hemoglobin 13.1 G/DL (14.2-18.0) L Hematocrit 43.2 % (42.0-52.0) Mean Corpuscular Volume 88 FL (80-99) Mean Corpuscular Hemoglobin 26.7 PG (27.0-31.0) L Mean Corpuscular Hemoglobin Concent 30.4 G/DL (32.0-36.0) L Red Cell Distribution Width 22.4 % (11.6-14.8) H Platelet Count 245 K/UL (150-450) Mean Platelet Volume 6.1 FL (6.5-10.1) L Neutrophils (%) (Auto) % (45.0-75.0) Lymphocytes (%) (Auto) % (20.0-45.0) Monocytes (%) (Auto) % (1.0-10.0) Eosinophils (%) (Auto) % (0.0-3.0) Basophils (%) (Auto) % (0.0-2.0) Differential Total Cells Counted 100 Neutrophils % (Manual) 94 % (45-75) H Lymphocytes % (Manual) 3 % (20-45) L Monocytes % (Manual) 3 % (1-10) Eosinophils % (Manual) 0 % (0-3) Basophils % (Manual) 0 % (0-2) Band Neutrophils 0 % (0-8) Platelet Estimate Adequate Platelet Morphology Normal Hypochromasia 1+ Anisocytosis 2+ Target Cells Rare Ovalocytes Rare [place] Cells Occasional Schistocytes Rare Prothrombin Time 42.0 SEC (9.30-11.50) H Prothromb Time International Ratio 4.1 (0.9-1.1) H Sodium Level 142 mEQ/L (135-145) Potassium Level 3.4 mEQ/L (3.4-4.9) Chloride Level 100 mEQ/L (98-107) Carbon Dioxide Level 29 mEQ/L (20-30) Anion Gap 13 (5-15) Blood Urea Nitrogen 39 mg/dL (7-23) H Creatinine 1.1 mg/dL (0.7-1.2) Estimat Glomerular Filtration Rate > 60 mL/min (>60) Glucose Level 118 mg/dL (74-106) H Calcium Level 9.0 mg/dL (8.6-10.2) Total Bilirubin 0.8 mg/dL (0.0-1.2) Aspartate Amino Transf (AST/SGOT) 23 U/L (5-40) Alanine Aminotransferase (ALT/SGPT) 13 U/L (3-41) Alkaline Phosphatase 137 U/L (40-129) H Pro-B-Type Natriuretic Peptide 5419 pg/mL (0-125) H Total Protein 6.7 g/dL (6.6-8.7) Albumin 2.6 g/dL (3.5-5.2) L Globulin 4.1 g/dL Albumin/Globulin Ratio 0.6 (1.0-2.7) L Objective HEENT: Atraumatic and normocephalic. Anicteric. Pupils are equal, round, and reactive to light and accommodation. Extraocular muscles intact. NECK: JVP up to 15 cm. No carotid bruit. Carotid upstroke is 2+ bilaterally. CARDIOVASCULAR: Normal S1 and S2. Regular rate and rhythm. No murmurs, gallops, or rubs. Tachycardic. PMI with lateral downward displacement. Also, there is presence of a S3 gallop. LUNGS: Clear to auscultation bilaterally. ABDOMEN: Soft, nontender, and nondistended. No hepatosplenomegaly. Positive bowel sounds. EXTREMITIES: No evidence of edema, clubbing, or cyanosis. RENATA BEAN Feb 23, 2017 13:26
[2017-02-23] MEDS ORDERED: Spironolactone 25mg tab ORAL SCH (13:30)
[2017-02-23 16:00] VITALS: BP 120/73
--- NOTE | 2017-02-23 19:48 | Cardiology Report ---
APPROVED REPORT EKG Measurement Heart [id number] CT [id number] Sinus tachycardia Moderate voltage criteria for LVH, may be normal variant Inferior infarct, age undetermined Abnormal ECG
[2017-02-23 20:00] VITALS: BP 129/85
[2017-02-23] MEDS: Tamsulosin 0.4mg cap ORAL SCH (20:45)
[2017-02-23] MEDS: Levofloxacin 500mg tab ORAL SCH (20:45)
[2017-02-23] MEDS ORDERED: Carvedilol 12.5mg tab ORAL SCH (21:00)
[2017-02-23] MEDS ORDERED: Nitroglycerin Subl 0.4mg tab (Bottle Of 25) SL PRN (22:00)
[2017-02-23] MEDS ORDERED: Promethazine/Codeine 5ml UD ORAL PRN (22:00)
[2017-02-23] MEDS ORDERED: DuoNeb 0.5-3(2.5)mg/3ml neb HHN PRN (22:00)
[2017-02-23] MEDS ORDERED: LORazepam Inj 2mg/ml 1ml IV PRN (22:00)
[2017-02-24] VITALS: BP 109/77
[2017-02-24 01:13] LABS: CD3 ABSOLUTE 175 /uL (622-2402); CD4 ABSOLUTE 59 /uL (359-1519); CD8 ABSOLUTE 113 /uL (109-897); LYMPHOCYTES ABSOLUTE 0.3 x10E3/uL (0.7-3.1); LYMPHS 4 % (.); WBC 7.1 x10E3/uL (3.4-10.8)
[2017-02-24 04:00] VITALS: BP 100/71
[2017-02-24] MEDS: NovoLOG Insulin Flexpen SUBQ SCH ×4 (06:30→21:00)
[2017-02-24 06:51] LABS: MEAN CORPUSCULAR HGB CONC 29.6 G/DL (32.0-36.0); MEAN CORPUSCULAR VOLUME 88 FL (80-99); MEAN PLATELET VOLUME 5.8 FL (6.5-10.1); PLATELET COUNT 263 K/UL (150-450); RED BLOOD COUNT 5.39 M/UL (4.70-6.10); RED CELL DISTRIBUTION WIDTH 22.5 % (11.6-14.8); WHITE BLOOD COUNT 11.7 K/UL (4.8-10.8)
[2017-02-24 07:00] LABS: INR 3.7 (0.9-1.1); PROTHROMBIN TIME 39.3 SEC (9.30-11.50)
[2017-02-24 07:02] LABS: ALANINE AMINOTRANSFERASE 16 U/L (3-41); ALBUMIN/GLOBULIN RATIO 0.7 (1.0-2.7); ANION GAP 8 (5-15); ASPARTATE AMINO TRANSFERASE 22 U/L (5-40); CALCIUM 8.6 mg/dL (8.6-10.2); CARBON DIOXIDE 34 mEQ/L (20-30); CHLORIDE 97 mEQ/L (98-107); CREATININE 1.1 mg/dL (0.7-1.2); GLOMERULAR FILTRATION RATE > 60 mL/min (>60); HEMOLYSIS 8; POTASSIUM 3.5 mEQ/L (3.4-4.9); SODIUM 139 mEQ/L (135-145); TOTAL PROTEIN 6.1 g/dL (6.6-8.7)
[2017-02-24 08:09] VITALS: BP 103/70
[2017-02-24 08:22] LABS: ANISOCYTOSIS 2+; BAND NEUTROPHILS % (MANUAL) 0 % (0-8); BASOPHILS % (MANUAL) 0 % (0-2); EOSINOPHILS % (MANUAL) 0 % (0-3); HYPOCHROMASIA 2+; LYMPHOCYTES % (MANUAL) 7 % (20-45); NEUTROPHILS % (MANUAL) 85 % (45-75); PLATELET ESTIMATE ADEQUATE; PLATELET MORPHOLOGY NORMAL; TOTAL CELLS COUNTED 100
[2017-02-24 08:24] LABS: MICROCYTES 1+
[2017-02-24 08:25] LABS: SCHISTOCYTES OCCASIONAL
[2017-02-24] MEDS: Lisinopril 10mg tab ORAL SCH (09:00)
[2017-02-24] MEDS ORDERED: Carvedilol 12.5mg tab ORAL SCH (09:00)
[2017-02-24] MEDS: Digoxin 0.125mg tab ORAL SCH (09:11)
[2017-02-24] MEDS: Spironolactone 25mg tab ORAL SCH (09:11)
[2017-02-24] MEDS: Carvedilol 12.5mg tab ORAL SCH ×2 (09:12→21:57)
--- NOTE | 2017-02-24 09:50 | General Progress Note ---
Assessment/Plan Status: stable Assessment/Plan 1. Acute on chronic chronic obstructive pulmonary disease exacerbation. 2. Bronchitis. 3. Cardiomyopathy with ejection fraction less than 20. 4. Tachyarrhythmia - differential paroxysmal atrial fibrillation, junctional rhythm. 5. Hypertension. 6. Hyperlipidemia. 7. Benign prostatic hypertrophy. 8. Human immunodeficiency virus. 9. Substance abuse. 10. Gastrointestinal and deep vein thrombosis prophylaxis. Plan: HyperCoagulation state Will proceed with the trial for Givens removal at urology discretion will followup with cardiology , Urology and pulmonary recommendations Chemoprophylaxis initiated ID notified. 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 Subjective ROS Limited/Unobtainable: No Constitutional: Reports: no symptoms HEENT: Reports: no symptoms Cardiovascular: Reports: no symptoms Respiratory: Reports: no symptoms Allergies: Coded Allergies: No Known Allergies (Unverified , 12/05/16) Objective Last 24 Hour Vital Signs Date Time Temp Pulse Resp B/P (MAP) Pulse Ox O2 Delivery O2 Flow Rate FiO2 02/24/17 09:12 117 103/70 02/24/17 09:11 117 02/24/17 09:00 103/70 02/24/17 08:09 96.3 117 20 103/70 99 Room Air 02/24/17 04:00 118 02/24/17 04:00 97.5 114 19 100/71 91 Room Air 02/24/17 00:00 97.0 100 22 109/77 Room Air 02/24/17 00:00 120 02/24/17 00:00 97.0 100 22 109/77 97 Room Air 40 02/23/17 20:46 120 129/85 02/23/17 20:00 96.5 120 20 129/85 97 Room Air 02/23/17 19:52 121 02/23/17 18:35 89 18 Room Air 02/23/17 16:00 121 02/23/17 16:00 98.2 121 22 120/73 97 Room Air 02/23/17 11:30 97.9 115 22 115/75 97 Room Air 02/23/17 11:25 120 Intake and Output 02/24/17 02/25/17 19:00 07:00 Intake Total 250 ml Balance 250 ml Intake Oral 250 ml Laboratory Tests 02/24/17 06:25: White Blood Count 11.7H, Red Blood Count 5.39, Hemoglobin 14.0L, Hematocrit 47.4 , Mean Corpuscular Volume 88, Mean Corpuscular Hemoglobin 26.0L, Mean Corpuscular Hemoglobin Concent 29.6L, Red Cell Distribution Width 22.5H, Platelet Count 263, Mean Platelet Volume 5.8L, Neutrophils (%) (Auto) , Lymphocytes (%) (Auto) , Monocytes (%) (Auto) , Eosinophils (%) (Auto) , Basophils (%) (Auto) , Differential Total Cells Counted 100, Neutrophils % ( Manual) 85H, Lymphocytes % (Manual) 7L, Monocytes % (Manual) 8, Eosinophils % ( Manual) 0, Basophils % (Manual) 0, Band Neutrophils 0, Platelet Estimate Adequate, Platelet Morphology Normal, Hypochromasia 2+, Anisocytosis 2+, Microcytosis 1+, Schistocytes Occasional, Prothrombin Time 39.3H, Prothromb Time International Ratio 3.7H, Sodium Level 139, Potassium Level 3.5, Chloride Level 97L, Carbon Dioxide Level 34H, Anion Gap 8, Blood Urea Nitrogen 45H, Creatinine 1.1, Estimat Glomerular Filtration Rate > 60, Glucose Level 96, Calcium Level 8.6, Total Bilirubin 0.7, Aspartate Amino Transf (AST/SGOT) 22, Alanine Aminotransferase (ALT/SGPT) 16, Alkaline Phosphatase 130H, Total Protein 6.1L, Albumin 2.6L, Globulin 3.5, Albumin/Globulin Ratio 0.7L Height (Feet): 5 Height (Inches): 6.00 Weight (Pounds): 169 General Appearance: no apparent distress EENT: PERRL/EOMI Neck: supple Cardiovascular: normal rate Respiratory/Chest: lungs clear, rhonchi - bilaterally Abdomen: soft 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
[2017-02-24] MEDS ORDERED: Azithromycin 600mg Tab ORAL SCH (10:00)
[2017-02-24] MEDS: Bactrim DS (160mg/800mg) tab ORAL SCH (10:42)
--- NOTE | 2017-02-24 11:11 | Urology Progress Note ---
Assessment/Plan Assessment/Plan Doing well. has had at least 3 doses of flomax on board now. Recommend voiding trial tomorrow AM. If able to void well, ok to continue on flomax indefinitely. If unable to void after 4 hours post franz removal, recommend leaving franz in place and continuing flomax for 14 total days. 1. continue flomax 2. DC rfanz in AM, if unable to void by 1100 replace franz and continue flomax Subjective Date patient seen: Feb 24, 2017 Time patient seen: 11:09 Constitutional: Denies: no symptoms, chills, diaphoresis, fever, malaise, weakness, other HEENT: Denies: no symptoms, eye pain, blurred vision, tearing, double vision, ear pain, ear discharge, nose pain, nose congestion, throat pain, throat swelling, mouth pain, mouth swelling, other Cardiovascular: Denies: no symptoms, chest pain, edema, irregular heart rate, lightheadedness, palpitations, syncope, other Respiratory: Denies: no symptoms, cough, orthopnea, shortness of breath, SOB with excertion, SOB at rest, sputum, stridor, wheezing, other Gastrointestinal/Abdominal: Denies: no symptoms, abdomen distended, abdominal pain, black stools, tarry stools, blood in stool, constipated, diarrhea, difficulty swallowing, nausea, poor appetite, poor fluid intake, rectal bleeding , vomiting, other Genitourinary: Denies: no symptoms, burning, discharge, frequency, flank pain, hematuria, incontinence, pain, urgency, other Neurologic/Psychiatric: Denies: no symptoms, anxiety, depressed, emotional problems, headache, numbness, paresthesia, pre-existing deficit, seizure, tingling, tremors, weakness, other Endocrine: Denies: no symptoms, excessive sweating, flushing, intolerance to cold, intolerance to heat, increased hunger, increased thirst, increased urine, unexplained weight gain, unexplained weight loss, other Hematologic/Lymphatic: Denies: no symptoms, anemia, easy bleeding, easy bruising, other Allergies: Coded Allergies: No Known Allergies (Unverified , 12/05/16) Subjective had a BM, constipation seems to have been addressed. Feeling ok overall. Objective Last 24 Hour Vital Signs Date Time Temp Pulse Resp B/P (MAP) Pulse Ox O2 Delivery O2 Flow Rate FiO2 02/24/17 09:12 117 103/70 02/24/17 09:11 117 02/24/17 09:00 103/70 02/24/17 08:09 96.3 117 20 103/70 99 Room Air 02/24/17 08:00 108 02/24/17 07:53 91 18 Room Air 02/24/17 04:00 118 02/24/17 04:00 97.5 114 19 100/71 91 Room Air 02/24/17 00:00 97.0 100 22 109/77 Room Air 02/24/17 00:00 120 02/24/17 00:00 97.0 100 22 109/77 97 Room Air 40 02/23/17 20:46 120 129/85 02/23/17 20:00 96.5 120 20 129/85 97 Room Air 02/23/17 19:52 121 02/23/17 18:35 89 18 Room Air 02/23/17 16:00 121 02/23/17 16:00 98.2 121 22 120/73 97 Room Air 02/23/17 11:30 97.9 115 22 115/75 97 Room Air 02/23/17 11:25 120 Intake and Output 02/24/17 02/25/17 19:00 07:00 Intake Total 250 ml Output Total 1900 ml Balance -1650 ml Intake Oral 250 ml Output Urine Total 1900 ml Laboratory Tests 02/24/17 06:25: White Blood Count 11.7H, Red Blood Count 5.39, Hemoglobin 14.0L, Hematocrit 47.4 , Mean Corpuscular Volume 88, Mean Corpuscular Hemoglobin 26.0L, Mean Corpuscular Hemoglobin Concent 29.6L, Red Cell Distribution Width 22.5H, Platelet Count 263, Mean Platelet Volume 5.8L, Neutrophils (%) (Auto) , Lymphocytes (%) (Auto) , Monocytes (%) (Auto) , Eosinophils (%) (Auto) , Basophils (%) (Auto) , Differential Total Cells Counted 100, Neutrophils % ( Manual) 85H, Lymphocytes % (Manual) 7L, Monocytes % (Manual) 8, Eosinophils % ( Manual) 0, Basophils % (Manual) 0, Band Neutrophils 0, Platelet Estimate Adequate, Platelet Morphology Normal, Hypochromasia 2+, Anisocytosis 2+, Microcytosis 1+, Schistocytes Occasional, Prothrombin Time 39.3H, Prothromb Time International Ratio 3.7H, Sodium Level 139, Potassium Level 3.5, Chloride Level 97L, Carbon Dioxide Level 34H, Anion Gap 8, Blood Urea Nitrogen 45H, Creatinine 1.1, Estimat Glomerular Filtration Rate > 60, Glucose Level 96, Calcium Level 8.6, Total Bilirubin 0.7, Aspartate Amino Transf (AST/SGOT) 22, Alanine Aminotransferase (ALT/SGPT) 16, Alkaline Phosphatase 130H, Total Protein 6.1L, Albumin 2.6L, Globulin 3.5, Albumin/Globulin Ratio 0.7L Height (Feet): 5 Height (Inches): 6.00 Weight (Pounds): 169 General Appearance: WD/WN Abdomen: soft Genitourinary/Rectal: other - franz in place Neurologic: no motor/sensory deficits, alert, oriented x 3 Nitin Frank M.D. Feb 24, 2017 11:11
[2017-02-24 11:31] VITALS: BP 105/69
--- NOTE | 2017-02-24 13:06 | Cardiology Report ---
APPROVED REPORT EXAM: Two-dimensional and M-mode echocardiogram with Doppler and color Doppler. INDICATION Tachycardia M-Mode DIMENSIONS IVSd0.9 (0.7-1.1cm)Left Atrium (MM)4.9 (1.6-4.0cm) LVDd6.3 (3.5-5.6cm)Aortic Root2.4 (2.0-3.7cm) PWd0.7 (0.7-1.1cm)Aortic Cusp Exc.1.8 (1.5-2.0cm) LVDs5.7 (2.5-4.0cm) PWs0.9 cm Mild left ventricular enlargement. Global left ventricular hypokinesis. Left ventricular ejection fraction estimated to be 20-25 %. No evidence of ventricular hypertrophy. No evidence of pericardial effusion. Mild left atrial enlargement. Severe right atrial enlargement. Right ventricular chamber size is within normal limits. Mild focal aortic valve sclerosis with adequate cusp excursion. Mildly thickened mitral valve leaflets with normal excursion. Mild mitral annulus and aortic root calcification. Normal pulmonic valve structure. Normal tricuspid valve structure. IVC dilated at 3.2 cm with minimal physiologic collapse, estimated RAP is 15 mmHg. A color flow and spectral Doppler study was performed and revealed: Trace aortic regurgitation. Moderate to severe mitral regurgitation. Mitral diastolic velocities suggest reduced left ventricular relaxation c/w diastolic dysfunction (Grade III). Modrate to sever tricuspid regurgitation. Tricuspid systolic velocities suggests peak right ventricular systolic pressure of 64 mmHg, consistent with severe pulmonary hypertension. Moderate pulmonic regurgitation present.
[2017-02-24] MEDS ORDERED: Tubing IV Secondary IV ONE (14:16)
[2017-02-24] MEDS ORDERED: D5NS 1000ml IV ONE (14:16)
[2017-02-24] MEDS ORDERED: NS 275ml ONE (14:16)
[2017-02-24 15:35] VITALS: BP 96/54
--- NOTE | 2017-02-24 15:43 | Cardiology Report ---
APPROVED REPORT EKG Measurement Heart [id number] Sinus tachycardia Possible Left atrial enlargement Possible Inferior infarct, age undetermined T wave abnormality, consider lateral ischemia Abnormal ECG
--- NOTE | 2017-02-24 17:34 | Pulmonology Progress Note ---
Assessment/Plan Problems: (1) Acute respiratory failure (2) EF 10% (3) COPD exacerbation (4) Bullous emphysema (5) Cardiomyopathy (6) BPH (benign prostatic hyperplasia) Assessment/Plan diuresed 15 liters so far decrease flora pt had endstage lung and heart disease, qualifies for hospice care at home Subjective ROS Limited/Unobtainable: No Constitutional: Reports: no symptoms HEENT: Repors: no symptoms Respiratory: Reports: no symptoms Allergies: Coded Allergies: No Known Allergies (Unverified , 12/05/16) Objective Last 24 Hour Vital Signs Date Time Temp Pulse Resp B/P (MAP) Pulse Ox O2 Delivery O2 Flow Rate FiO2 02/24/17 15:35 96.9 108 20 96/54 100 Room Air 02/24/17 12:00 107 02/24/17 11:31 96.6 113 20 105/69 99 Room Air 02/24/17 09:12 117 103/70 02/24/17 09:11 117 02/24/17 09:00 103/70 02/24/17 08:09 96.3 117 20 103/70 99 Room Air 02/24/17 08:00 108 02/24/17 07:53 91 18 Room Air 02/24/17 04:00 118 02/24/17 04:00 97.5 114 19 100/71 91 Room Air 02/24/17 00:00 97.0 100 22 109/77 Room Air 02/24/17 00:00 120 02/24/17 00:00 97.0 100 22 109/77 97 Room Air 40 02/23/17 20:46 120 129/85 02/23/17 20:00 96.5 120 20 129/85 97 Room Air 02/23/17 19:52 121 02/23/17 18:35 89 18 Room Air Intake and Output 02/24/17 02/25/17 19:00 07:00 Intake Total 750 ml Output Total 3700 ml Balance -2950 ml Intake Oral 750 ml Output Urine Total 3700 ml # Bowel Movements 1 General Appearance: WD/WN HEENT: normocephalic, atraumatic Respiratory/Chest: chest wall non-tender, lungs clear Cardiovascular: normal peripheral pulses, normal rate Genitourinary: normal external genitalia Laboratory Tests 02/24/17 06:25: White Blood Count 11.7H, Red Blood Count 5.39, Hemoglobin 14.0L, Hematocrit 47.4 , Mean Corpuscular Volume 88, Mean Corpuscular Hemoglobin 26.0L, Mean Corpuscular Hemoglobin Concent 29.6L, Red Cell Distribution Width 22.5H, Platelet Count 263, Mean Platelet Volume 5.8L, Neutrophils (%) (Auto) , Lymphocytes (%) (Auto) , Monocytes (%) (Auto) , Eosinophils (%) (Auto) , Basophils (%) (Auto) , Differential Total Cells Counted 100, Neutrophils % ( Manual) 85H, Lymphocytes % (Manual) 7L, Monocytes % (Manual) 8, Eosinophils % ( Manual) 0, Basophils % (Manual) 0, Band Neutrophils 0, Platelet Estimate Adequate, Platelet Morphology Normal, Hypochromasia 2+, Anisocytosis 2+, Microcytosis 1+, Schistocytes Occasional, Prothrombin Time 39.3H, Prothromb Time International Ratio 3.7H, Sodium Level 139, Potassium Level 3.5, Chloride Level 97L, Carbon Dioxide Level 34H, Anion Gap 8, Blood Urea Nitrogen 45H, Creatinine 1.1, Estimat Glomerular Filtration Rate > 60, Glucose Level 96, Calcium Level 8.6, Total Bilirubin 0.7, Aspartate Amino Transf (AST/SGOT) 22, Alanine Aminotransferase (ALT/SGPT) 16, Alkaline Phosphatase 130H, Total Protein 6.1L, Albumin 2.6L, Globulin 3.5, Albumin/Globulin Ratio 0.7L Current Medications Medications (Trade) Dose Ordered Sig/Rocio Route PRN Reason Start Time Stop Time Status Last Admin Dose Admin Acetaminophen (Tylenol) 650 mg Q4H PRN ORAL T>100.5 02/23/17 22:00 03/22/17 21:59 Albuterol/ Ipratropium (DuoNeb 0.5-3(2.5)mg/3ml) 3 ml Q4H PRN HHN dyspnea 02/23/17 22:00 02/25/17 21:59 Azithromycin (Zithromax) 1,200 mg ONCE A WEEK ORAL 02/24/17 10:00 03/03/17 09:59 02/24/17 10:41 Carvedilol (Coreg) 25 mg EVERY 12 HOURS ORAL 02/24/17 09:00 03/26/17 08:59 02/24/17 09:12 Clonidine HCl (Catapres) 0.1 mg Q4H PRN ORAL sbp more than 160 02/23/17 22:00 03/22/17 21:59 Dextrose (Dextrose 50%) STAT PRN IV Hypoglycemia 02/23/17 22:00 03/25/17 21:59 Digoxin (Lanoxin) 0.125 mg DAILY ORAL 02/24/17 09:00 03/23/17 17:59 02/24/17 09:11 Ferrous Sulfate (Feosol) 325 mg THREE TIMES A DAY ORAL 02/24/17 09:00 03/23/17 12:59 02/24/17 17:25 Furosemide (Lasix) 40 mg BID IV 02/24/17 09:00 03/23/17 20:59 02/24/17 17:24 Insulin Aspart (NovoLOG) BEFORE MEALS AND HS SUBQ 02/24/17 06:30 03/24/17 12:59 02/24/17 17:25 Levofloxacin (Levaquin) 500 mg QHS ORAL 02/24/17 21:00 03/01/17 20:59 Lisinopril (Zestril) 10 mg DAILY ORAL 02/24/17 09:00 03/25/17 08:59 Lorazepam (Ativan 2mg/ml 1ml) 0.5 mg Q4H PRN IV For Anxiety 02/23/17 22:00 02/27/17 21:59 Metolazone (Zaroxolyn) 5 mg DAILY ORAL 02/24/17 09:00 03/23/17 17:59 02/24/17 09:12 Nitroglycerin (Ntg) 0.4 mg Q5M X 3 DOSES PRN SL Prn Chest Pain 02/23/17 22:00 03/22/17 21:59 Ondansetron HCl (Zofran) 4 mg Q6H PRN IVP Nausea & Vomiting 02/23/17 22:00 03/22/17 21:59 Promethazine HCl/ Codeine (Phenergan with Codeine) 5 ml Q6H PRN ORAL cough 02/23/17 22:00 03/22/17 21:59 Spironolactone (Aldactone) 25 mg DAILY ORAL 02/24/17 09:00 03/25/17 13:29 02/24/17 09:11 Tamsulosin HCl (Flomax) 0.4 mg BEDTIME ORAL 02/24/17 21:00 03/23/17 20:59 Temazepam (Restoril) 15 mg HSPRN PRN ORAL Insomnia 02/23/17 22:00 02/27/17 21:59 Trimethoprim/ Sulfamethoxazole (Bactrim-DS) 1 ea DAILY ORAL 02/24/17 10:00 03/03/17 09:59 02/24/17 10:42 Warfarin Sodium (Coumadin per pharmacy) 1 ea DAILY PRN MISC Per rx protocol 02/24/17 09:00 03/23/17 14:59 DALLIN LORD Feb 24, 2017 17:34
--- NOTE | 2017-02-24 19:26 | Consultation ---
Consult Note Consult Note [id number] DEMETRIA GILBERT M.D. Feb 24, 2017 19:26
[2017-02-24 20:00] VITALS: BP 90/66
[2017-02-24] MEDS ORDERED: Levofloxacin 500mg tab ORAL SCH (21:00)
[2017-02-24] MEDS ORDERED: Tamsulosin 0.4mg cap ORAL SCH (21:00)
--- NOTE | 2017-02-24 23:55 | Cardiology Progress Note ---
Assessment/Plan Assessment/Plan 1. Acute on chronic systolic and diastolic heart failure due to medication noncompliance, LVEF at 10% to 15%. Coreg was increased to the maximum dose.Continue lisinopril. I&O negative ~2 liter in the past 24 hours. Decrease lasix to 40mg IV daily, check BNP in am. 2. Sinus tachycardia due to acute CHF, slightly better. 3. History of diabetes mellitus. 4. History of hypertension. 5. History of human immunodeficiency virus disease. 6. History of chronic obstructive pulmonary disease. Subjective Subjective Sinus tachycardia at 108. Had a short run of NSVT, magnesium sulphate given. Objective Last 24 Hour Vital Signs Date Time Temp Pulse Resp B/P (MAP) Pulse Ox O2 Delivery O2 Flow Rate FiO2 02/24/17 21:57 108 91/70 02/24/17 20:00 97.9 105 20 90/66 Room Air 02/24/17 19:46 109 02/24/17 19:30 99 18 Room Air 21 02/24/17 16:00 103 02/24/17 15:35 96.9 108 20 96/54 100 Room Air 02/24/17 12:00 107 02/24/17 11:31 96.6 113 20 105/69 99 Room Air 02/24/17 09:12 117 103/70 02/24/17 09:11 117 02/24/17 09:00 103/70 02/24/17 08:09 96.3 117 20 103/70 99 Room Air 02/24/17 08:00 108 02/24/17 07:53 91 18 Room Air 02/24/17 04:00 118 02/24/17 04:00 97.5 114 19 100/71 91 Room Air 02/24/17 00:00 97.0 100 22 109/77 Room Air 02/24/17 00:00 120 02/24/17 00:00 97.0 100 22 109/77 97 Room Air 40 Intake and Output 02/24/17 02/25/17 19:00 07:00 Intake Total 750 ml Output Total 3700 ml Balance -2950 ml Intake Oral 750 ml Output Urine Total 3700 ml # Bowel Movements 1 2D Echo: LVEF 10-15%, LV enalrgement, Restrictive LV physiology Laboratory Tests Test 02/24/17 06:25 White Blood Count 11.7 K/UL (4.8-10.8) H Red Blood Count 5.39 M/UL (4.70-6.10) Hemoglobin 14.0 G/DL (14.2-18.0) L Hematocrit 47.4 % (42.0-52.0) Mean Corpuscular Volume 88 FL (80-99) Mean Corpuscular Hemoglobin 26.0 PG (27.0-31.0) L Mean Corpuscular Hemoglobin Concent 29.6 G/DL (32.0-36.0) L Red Cell Distribution Width 22.5 % (11.6-14.8) H Platelet Count 263 K/UL (150-450) Mean Platelet Volume 5.8 FL (6.5-10.1) L Neutrophils (%) (Auto) % (45.0-75.0) Lymphocytes (%) (Auto) % (20.0-45.0) Monocytes (%) (Auto) % (1.0-10.0) Eosinophils (%) (Auto) % (0.0-3.0) Basophils (%) (Auto) % (0.0-2.0) Differential Total Cells Counted 100 Neutrophils % (Manual) 85 % (45-75) H Lymphocytes % (Manual) 7 % (20-45) L Monocytes % (Manual) 8 % (1-10) Eosinophils % (Manual) 0 % (0-3) Basophils % (Manual) 0 % (0-2) Band Neutrophils 0 % (0-8) Platelet Estimate Adequate Platelet Morphology Normal Hypochromasia 2+ Anisocytosis 2+ Microcytosis 1+ Schistocytes Occasional Prothrombin Time 39.3 SEC (9.30-11.50) H Prothromb Time International Ratio 3.7 (0.9-1.1) H Sodium Level 139 mEQ/L (135-145) Potassium Level 3.5 mEQ/L (3.4-4.9) Chloride Level 97 mEQ/L (98-107) L Carbon Dioxide Level 34 mEQ/L (20-30) H Anion Gap 8 (5-15) Blood Urea Nitrogen 45 mg/dL (7-23) H Creatinine 1.1 mg/dL (0.7-1.2) Estimat Glomerular Filtration Rate > 60 mL/min (>60) Glucose Level 96 mg/dL (74-106) Calcium Level 8.6 mg/dL (8.6-10.2) Total Bilirubin 0.7 mg/dL (0.0-1.2) Aspartate Amino Transf (AST/SGOT) 22 U/L (5-40) Alanine Aminotransferase (ALT/SGPT) 16 U/L (3-41) Alkaline Phosphatase 130 U/L (40-129) H Total Protein 6.1 g/dL (6.6-8.7) L Albumin 2.6 g/dL (3.5-5.2) L Globulin 3.5 g/dL Albumin/Globulin Ratio 0.7 (1.0-2.7) L Objective HEENT: Atraumatic and normocephalic. Anicteric. Pupils are equal, round, and reactive to light and accommodation. Extraocular muscles intact. NECK: JVP up to 15 cm. No carotid bruit. Carotid upstroke is 2+ bilaterally. CARDIOVASCULAR: Normal S1 and S2. Regular rate and rhythm. No murmurs, gallops, or rubs. Tachycardic. PMI with lateral downward displacement. Also, there is presence of a S3 gallop. LUNGS: Clear to auscultation bilaterally. ABDOMEN: Soft, nontender, and nondistended. No hepatosplenomegaly. Positive bowel sounds. EXTREMITIES: No evidence of edema, clubbing, or cyanosis. RENATA BEAN Feb 24, 2017 23:55
[2017-02-25] VITALS: BP 79/57
[2017-02-25 04:08] VITALS: BP 80/60
[2017-02-25] MEDS: NovoLOG Insulin Flexpen SUBQ SCH (06:30)
[2017-02-25 06:47] LABS: INR 2.3 (0.9-1.1); PROTHROMBIN TIME 24.5 SEC (9.30-11.50)
[2017-02-25 06:56] LABS: BASOPHILS % (AUTO) 2.2 % (0.0-2.0); EOSINOPHILS % (AUTO) 0.6 % (0.0-3.0); LYMPHOCYTES % (AUTO) 14.1 % (20.0-45.0); MEAN CORPUSCULAR HGB CONC 29.7 G/DL (32.0-36.0); MEAN CORPUSCULAR VOLUME 88 FL (80-99); MEAN PLATELET VOLUME 5.9 FL (6.5-10.1); MONOCYTES % (AUTO) 10.6 % (1.0-10.0); NEUTROPHILS % (AUTO) 72.4 % (45.0-75.0); PLATELET COUNT 241 K/UL (150-450); RED CELL DISTRIBUTION WIDTH 21.7 % (11.6-14.8); WHITE BLOOD COUNT 6.5 K/UL (4.8-10.8)
[2017-02-25 07:39] LABS: ALANINE AMINOTRANSFERASE 17 U/L (3-41); ALBUMIN/GLOBULIN RATIO 0.8 (1.0-2.7); ANION GAP 7 (5-15); ASPARTATE AMINO TRANSFERASE 23 U/L (5-40); CALCIUM 8.9 mg/dL (8.6-10.2); CARBON DIOXIDE 39 mEQ/L (20-30); CHLORIDE 93 mEQ/L (98-107); CREATININE 1.2 mg/dL (0.7-1.2); GLOMERULAR FILTRATION RATE > 60 mL/min (>60); HEMOLYSIS 6; POTASSIUM 3.7 mEQ/L (3.4-4.9); SODIUM 139 mEQ/L (135-145); TOTAL PROTEIN 6.2 g/dL (6.6-8.7)
[2017-02-25 07:53] LABS: BILIRUBIN,DIRECT 0.4 mg/dL (0.1-0.3)
[2017-02-25 08:00] VITALS: BP 87/62
[2017-02-25] MEDS: Carvedilol 12.5mg tab ORAL SCH (09:00)
[2017-02-25] MEDS: Lisinopril 10mg tab ORAL SCH (09:00)
--- NOTE | 2017-02-25 09:02 | Consultation ---
DATE OF CONSULTATION: INFECTIOUS DISEASES CONSULTATION REFERRING PHYSICIAN: Itz Loja M.D. REASON FOR CONSULTATION: Evaluation of the patient for HIV, AIDS, pneumonia, and antibiotic management. HISTORY OF PRESENT ILLNESS: The patient is a 56-year-old male with multiple medical problems as listed below, who was admitted to this medical center due to shortness of breath. The patient COPD exacerbation. The patient has HIV AIDS. Overall, the patient is a poor historian. The patient was found with low CD4 count of 59 and Infectious Diseases consultation has been requested for further evaluation of the patient and recommendation regarding treatment. PAST MEDICAL HISTORY: Significant for: 1. HIV AIDS, CD4 count 59, 27. 2. History of bronchitis/pneumonia. 3. History of CHF. 4. History of renal insufficiency. 5. History of abnormal liver function tests. 6. Diabetes. 7. History of polysubstance abuse. MEDICATIONS: The patient is on Genvoya, however, it is not clear if the patient is compliant with taking his HIV medications. According to him, he has followup with his HIV care doctor and he has been taking his medications on a regular basis over the last two months. PHYSICAL EXAMINATION: VITAL SIGNS: Unremarkable. . ASSESSMENT: The patient is a 56-year-old male with multiple medical problems as listed below, who has also: 1. Human immunodeficiency virus/acquired immunodeficiency syndrome, CD4 of 59, down from 100 from two months ago, most likely the patient is noncompliant with taking these medications. Also, possibility of resistant is a consideration. 2. Chronic obstructive pulmonary disease exacerbation. 3. Congestive heart failure exacerbation. PLAN: 1. We will continue the patient on Levaquin day 4/5. 2. We will continue the patient on Zithromax and Bactrim as AIDS prophylaxis regimen. 3. We will ask the patient to bring his medication, Genvoya. Otherwise, we may ask the pharmacy to supply the patient's medication. 4. We will check an HIV test. 5. Monitor CBC. 6. Monitor BNP. 7. Monitor chest x-ray. 8. Based on the patient's clinical course and labs, we will do further recommendation. Thank you, Dr. Loja, for allowing me to participate in the care of this patient. I will follow this patient with you during this hospitalization. Nino Cartwright M.D. DR: Say JOB#: [id number] CC:
[2017-02-25] MEDS: Spironolactone 25mg tab ORAL SCH (10:30)
[2017-02-25] MEDS: Digoxin 0.125mg tab ORAL SCH (10:30)
[2017-02-25] MEDS: Bactrim DS (160mg/800mg) tab ORAL SCH (10:34)
--- NOTE | 2017-02-25 11:58 | Pulmonology Progress Note ---
Assessment/Plan Problems: (1) Acute respiratory failure (2) EF 10% (3) COPD exacerbation (4) Bullous emphysema (5) Cardiomyopathy (6) BPH (benign prostatic hyperplasia) Assessment/Plan diuresed 18 liters so far bun is lower pt had endstage lung and heart disease, qualifies for hospice care at home dc home with close outpatient f/u Subjective ROS Limited/Unobtainable: No Constitutional: Reports: no symptoms HEENT: Repors: no symptoms Allergies: Coded Allergies: No Known Allergies (Unverified , 12/05/16) Objective Last 24 Hour Vital Signs Date Time Temp Pulse Resp B/P (MAP) Pulse Ox O2 Delivery O2 Flow Rate FiO2 02/25/17 10:39 114 18 Room Air 02/25/17 10:30 109 02/25/17 09:00 87/42 02/25/17 09:00 87/42 02/25/17 08:00 97.3 107 19 87/62 97 Room Air 02/25/17 04:08 97.9 102 20 80/60 100 Room Air 02/25/17 03:50 107 02/25/17 00:01 98 02/25/17 00:00 97.2 97 20 79/57 Room Air 02/24/17 21:57 108 91/70 02/24/17 20:00 97.9 105 20 90/66 Room Air 02/24/17 19:46 109 02/24/17 19:30 99 18 Room Air 21 02/24/17 16:00 103 02/24/17 15:35 96.9 108 20 96/54 100 Room Air 02/24/17 12:00 107 Intake and Output 02/25/17 02/26/17 19:00 07:00 Intake Total 360 ml Balance 360 ml Intake Oral 360 ml General Appearance: WD/WN HEENT: normocephalic, atraumatic Respiratory/Chest: chest wall non-tender, lungs clear Cardiovascular: normal peripheral pulses, normal rate Abdomen: normal bowel sounds, soft, non tender Genitourinary: normal external genitalia Extremities: no clubbing Skin: no lesions, no ulcers Laboratory Tests 02/25/17 05:55: White Blood Count 6.5, Red Blood Count 5.70, Hemoglobin 14.8, Hematocrit 50.0, Mean Corpuscular Volume 88, Mean Corpuscular Hemoglobin 26.0L, Mean Corpuscular Hemoglobin Concent 29.7L, Red Cell Distribution Width 21.7H, Platelet Count 241 , Mean Platelet Volume 5.9L, Neutrophils (%) (Auto) 72.4, Lymphocytes (%) (Auto ) 14.1L, Monocytes (%) (Auto) 10.6H, Eosinophils (%) (Auto) 0.6, Basophils (%) ( Auto) 2.2H, Prothrombin Time 24.5H, Prothromb Time International Ratio 2.3H, Sodium Level 139, Potassium Level 3.7, Chloride Level 93L, Carbon Dioxide Level 39H, Anion Gap 7, Blood Urea Nitrogen 38H, Creatinine 1.2, Estimat Glomerular Filtration Rate > 60, Glucose Level 82, Calcium Level 8.9, Total Bilirubin 1.1, Direct Bilirubin 0.4H, Aspartate Amino Transf (AST/SGOT) 23, Alanine Aminotransferase (ALT/SGPT) 17, Alkaline Phosphatase 98, Pro-B-Type Natriuretic Peptide 2172H, Total Protein 6.2L, Albumin 2.9L, Globulin 3.3, Albumin/Globulin Ratio 0.8L, HIV-1 RNA (PCR) log10 Value [Pending], HIV-1 RNA Ultraquantitative ( PCR) [Pending] Current Medications Medications (Trade) Dose Ordered Sig/Rocio Route PRN Reason Start Time Stop Time Status Last Admin Dose Admin Acetaminophen (Tylenol) 650 mg Q4H PRN ORAL T>100.5 02/23/17 22:00 03/22/17 21:59 Albuterol/ Ipratropium (DuoNeb 0.5-3(2.5)mg/3ml) 3 ml Q4H PRN HHN dyspnea 02/23/17 22:00 02/25/17 21:59 Azithromycin (Zithromax) 1,200 mg ONCE A WEEK ORAL 02/24/17 10:00 03/03/17 09:59 02/24/17 10:41 Carvedilol (Coreg) 25 mg EVERY 12 HOURS ORAL 02/24/17 09:00 03/26/17 08:59 02/24/17 21:57 Clonidine HCl (Catapres) 0.1 mg Q4H PRN ORAL sbp more than 160 02/23/17 22:00 03/22/17 21:59 Dextrose (Dextrose 50%) STAT PRN IV Hypoglycemia 02/23/17 22:00 03/25/17 21:59 Digoxin (Lanoxin) 0.125 mg DAILY ORAL 02/24/17 09:00 03/23/17 17:59 02/25/17 10:30 Ferrous Sulfate (Feosol) 325 mg THREE TIMES A DAY ORAL 02/24/17 09:00 03/23/17 12:59 02/25/17 10:30 Furosemide (Lasix) 20 mg BID IV 02/25/17 09:00 03/27/17 08:59 Insulin Aspart (NovoLOG) BEFORE MEALS AND HS SUBQ 02/24/17 06:30 03/24/17 12:59 02/24/17 17:25 Levofloxacin (Levaquin) 500 mg QHS ORAL 02/24/17 21:00 03/01/17 20:59 02/24/17 21:53 Lisinopril (Zestril) 10 mg DAILY ORAL 02/24/17 09:00 03/25/17 08:59 Lorazepam (Ativan 2mg/ml 1ml) 0.5 mg Q4H PRN IV For Anxiety 02/23/17 22:00 02/27/17 21:59 Metolazone (Zaroxolyn) 5 mg DAILY ORAL 02/24/17 09:00 03/23/17 17:59 02/24/17 09:12 Nitroglycerin (Ntg) 0.4 mg Q5M X 3 DOSES PRN SL Prn Chest Pain 02/23/17 22:00 03/22/17 21:59 Non-Formulary Medication (Non-Formulary Med) 1 ea DAILY ORAL 02/24/17 18:00 03/26/17 17:59 UNV Ondansetron HCl (Zofran) 4 mg Q6H PRN IVP Nausea & Vomiting 02/23/17 22:00 03/22/17 21:59 Promethazine HCl/ Codeine (Phenergan with Codeine) 5 ml Q6H PRN ORAL cough 02/23/17 22:00 03/22/17 21:59 Spironolactone (Aldactone) 25 mg DAILY ORAL 02/24/17 09:00 03/25/17 13:29 02/25/17 10:30 Tamsulosin HCl (Flomax) 0.4 mg BEDTIME ORAL 02/24/17 21:00 03/23/17 20:59 02/24/17 21:53 Temazepam (Restoril) 15 mg HSPRN PRN ORAL Insomnia 02/23/17 22:00 02/27/17 21:59 Trimethoprim/ Sulfamethoxazole (Bactrim-DS) 1 ea DAILY ORAL 02/24/17 10:00 03/03/17 09:59 02/25/17 10:34 Warfarin Sodium (Coumadin per pharmacy) 1 ea DAILY PRN MISC Per rx protocol 02/24/17 09:00 03/23/17 14:59 Warfarin Sodium (Coumadin) 6 mg COUMADIN ORAL 02/25/17 17:00 02/25/17 17:01 DALLIN LORD Feb 25, 2017 11:58
[2017-02-25 12:00] VITALS: BP 86/59
[2017-02-25] MEDS ORDERED: LISINOPRIL10 MG ORAL (12:01)
[2017-02-25] MEDS ORDERED: COREG12.5 MG ORAL (12:01)
[2017-02-25] MEDS ORDERED: ALDACTONE25 MG ORAL (12:01)
[2017-02-25] MEDS ORDERED: BACTRIM-DS1 EA ORAL (12:01)
[2017-02-25] MEDS ORDERED: COUMADIN3 MG ORAL (12:01)
[2017-02-25] MEDS ORDERED: LANOXIN125 MCG ORAL (12:01)
[2017-02-25] MEDS ORDERED: Tubing IV Secondary IV ONE (12:14)
[2017-02-25] MEDS ORDERED: NS 550ML IV ONE (12:14)
[2017-02-25] MEDS ORDERED: Warfarin Sodium 3mg ORAL SCH (17:00)
--- NOTE | 2017-02-25 23:42 | Cardiology Progress Note ---
Assessment/Plan Assessment/Plan 1. Acute on chronic systolic and diastolic heart failure due to medication noncompliance, LVEF at 10% to 15%. Continue GDMT. 2. Sinus tachycardia due to acute CHF. 3. History of diabetes mellitus. 4. History of hypertension. 5. History of human immunodeficiency virus disease. 6. History of chronic obstructive pulmonary disease. Subjective Subjective Sinus tachycardia at 110. Objective Last 24 Hour Vital Signs Date Time Temp Pulse Resp B/P (MAP) Pulse Ox O2 Delivery O2 Flow Rate FiO2 02/25/17 12:00 97.0 104 20 86/59 95 Room Air 02/25/17 12:00 105 02/25/17 10:39 114 18 Room Air 02/25/17 10:30 109 02/25/17 09:00 87/42 02/25/17 09:00 87/42 02/25/17 08:00 97.3 107 19 87/62 97 Room Air 02/25/17 08:00 109 02/25/17 04:08 97.9 102 20 80/60 100 Room Air 02/25/17 03:50 107 02/25/17 00:01 98 02/25/17 00:00 97.2 97 20 79/57 Room Air Intake and Output 02/25/17 02/26/17 19:00 07:00 Intake Total 360 ml Balance 360 ml Intake Oral 360 ml 2D Echo: LVEF 10-15%, LV enalrgement, Restrictive LV physiology Laboratory Tests Test 02/25/17 05:55 White Blood Count 6.5 K/UL (4.8-10.8) Red Blood Count 5.70 M/UL (4.70-6.10) Hemoglobin 14.8 G/DL (14.2-18.0) Hematocrit 50.0 % (42.0-52.0) Mean Corpuscular Volume 88 FL (80-99) Mean Corpuscular Hemoglobin 26.0 PG (27.0-31.0) L Mean Corpuscular Hemoglobin Concent 29.7 G/DL (32.0-36.0) L Red Cell Distribution Width 21.7 % (11.6-14.8) H Platelet Count 241 K/UL (150-450) Mean Platelet Volume 5.9 FL (6.5-10.1) L Neutrophils (%) (Auto) 72.4 % (45.0-75.0) Lymphocytes (%) (Auto) 14.1 % (20.0-45.0) L Monocytes (%) (Auto) 10.6 % (1.0-10.0) H Eosinophils (%) (Auto) 0.6 % (0.0-3.0) Basophils (%) (Auto) 2.2 % (0.0-2.0) H Prothrombin Time 24.5 SEC (9.30-11.50) H Prothromb Time International Ratio 2.3 (0.9-1.1) H Sodium Level 139 mEQ/L (135-145) Potassium Level 3.7 mEQ/L (3.4-4.9) Chloride Level 93 mEQ/L (98-107) L Carbon Dioxide Level 39 mEQ/L (20-30) H Anion Gap 7 (5-15) Blood Urea Nitrogen 38 mg/dL (7-23) H Creatinine 1.2 mg/dL (0.7-1.2) Estimat Glomerular Filtration Rate > 60 mL/min (>60) Glucose Level 82 mg/dL (74-106) Calcium Level 8.9 mg/dL (8.6-10.2) Total Bilirubin 1.1 mg/dL (0.0-1.2) Direct Bilirubin 0.4 mg/dL (0.1-0.3) H Aspartate Amino Transf (AST/SGOT) 23 U/L (5-40) Alanine Aminotransferase (ALT/SGPT) 17 U/L (3-41) Alkaline Phosphatase 98 U/L (40-129) Pro-B-Type Natriuretic Peptide 2172 pg/mL (0-125) H Total Protein 6.2 g/dL (6.6-8.7) L Albumin 2.9 g/dL (3.5-5.2) L Globulin 3.3 g/dL Albumin/Globulin Ratio 0.8 (1.0-2.7) L HIV-1 RNA (PCR) log10 Value Pending HIV-1 RNA Ultraquantitative (PCR) Pending Objective HEENT: Atraumatic and normocephalic. Anicteric. Pupils are equal, round, and reactive to light and accommodation. Extraocular muscles intact. NECK: JVP up to 15 cm. No carotid bruit. Carotid upstroke is 2+ bilaterally. CARDIOVASCULAR: Normal S1 and S2. Regular rate and rhythm. No murmurs, gallops, or rubs. Tachycardic. PMI with lateral downward displacement. Also, there is presence of a S3 gallop. LUNGS: Clear to auscultation bilaterally. ABDOMEN: Soft, nontender, and nondistended. No hepatosplenomegaly. Positive bowel sounds. EXTREMITIES: No evidence of edema, clubbing, or cyanosis. RENATA BEAN Feb 25, 2017 23:42
--- NOTE | 2017-02-26 22:45 | History and Physical Report ---
DATE OF ADMISSION: 02/20/2017 ADDENDUM PHYSICAL EXAMINATION: VITAL SIGNS: Blood pressure 128/80, temperature 98.2 degrees, and pulse oximetry 98% on room air. HEAD AND NECK: Atraumatic and normocephalic. CHEST: Clear to auscultation. HEART: S1 and S2. Regular rate and rhythm. ABDOMEN: Soft. No organomegaly. MUSCULOSKELETAL: No gross focal motor deficit. NEUROLOGIC: Awake, alert, and oriented x3. PSYCHIATRIC: The patient's mood and affect are depressed. Itz Loja M.D. DR: BOB JOB#: [id number] CC:
--- NOTE | 2017-02-27 13:27 | Discharge Summary ---
Discharge Summary Hospital Course Date of Admission Feb 20, 2017 at 19:35 Date of Discharge Feb 25, 2017 at 12:15 Admitting Diagnosis chf exacerbation,on BIPAP HPI Du Oliveros is a 56 year old male who was admitted on Feb 20, 2017 at 19: 35 for Congestive Heart Failure Exacerbation, On Bipap Hospital Course [id number] Discharge Discharge Disposition Patient was discharged to Home (01) Discharge Diagnoses: Beatrice Santos NP Feb 27, 2017 13:27
[2017-02-27 20:12] LABS: HIV RNA PCR QUANT 2.079 (.)
--- NOTE | 2017-02-28 01:00 | Discharge Summary 2 SIG ---
DATE OF ADMISSION: 02/20/2017 DATE OF DISCHARGE: 02/25/2017 CONSULTANTS: 1. Jensen Pathak M.D. 2. Barry Puente M.D. 3. Nino Cartwright M.D. 4. Spencer Paniagua M.D. BRIEF HOSPITAL COURSE: The patient is a 56-year-old male with history of CHF and HIV, presented to the ED complaining of acute on chronic worsening shortness of breath. Shortness of breath had been gradual in onset and occurs at both rest and on exertion. Unable to walk more than one block without shortness of breath and worse with laying flat. He also has associated bilateral lower extremity edema for more than a week. He has cough, but no fever, no chills. On evaluation at ED, the patient was initially placed on O2 nasal cannula, however, BiPAP was placed due to worsening respiratory status. He was only intermittently tolerating. Blood work showed anemia. Creatinine was 1.4. BNP was 2597. Troponin was negative. EKG done showed lateral T-wave inversion, which was evident on previous EKGs. Chest x-ray showed cardiomegaly with pulmonary vascular congestion. He was then admitted to [facility] for COPD exacerbation, bronchitis, cardiomyopathy, tachyarrhythmia, hypertension, hyperlipidemia, and BPH. He was given O2 support with BiPAP p.r.n. He was started on IV steroids and IV antibiotic levofloxacin. He has been sinus tachy on telemetry and was continued on digoxin, and Lasix and ANDREAS inhibitors. The patient is apparently noncompliant with his medications, most likely has acute on chronic systolic and diastolic heart failure due to medication noncompliance. He was given Coreg 3.125 mg daily. Metolazone was added to furosemide. The patient is volume overloaded and echocardiogram showed severely increased intracardiac filling pressure with evidence of elevated pulmonary capillary wedge pressure and severe left ventricular systolic dysfunction with left ventricular ejection fraction approximately 10% to 15%. He was continued on warfarin and was placed on fluid restriction. He also reported difficulty in urination and Givens catheter was placed and was given Flomax. Bladder training was done. He had CD4 count of 59, down from 100 two months ago. He was given Zithromax and Bactrim as prophylaxis and was advised to continue his Genvoya. Steroids were tapered, and the patient was eventually discharged home. FINAL DIAGNOSES: 1. Acute on chronic obstructive pulmonary disease in exacerbation. 2. Acute on chronic systolic and diastolic congestive heart failure. 3. Acute bronchitis. 4. Cardiomyopathy. 5. Tachyarrhythmia. 6. Hypertension. 7. Hyperlipidemia. 8. Benign prostatic hypertrophy. 9. Human immunodeficiency virus. 10. Substance abuse. 11. Acute respiratory failure requiring BiPAP, resolved. DISPOSITION: The patient was discharged home. DISCHARGE MEDICATIONS: Refer to medication list. FOLLOWUP: Follow up with PMD as an outpatient. ACTIVITY: As tolerated. Itz Loja M.D. I have been assigned to dictate discharge summary on this account and I was not involved in the patient's management. Beatrice Santos N.P. DR: DENIZ JOB#: [id number] CC: ARIAN
== END 2017-02-25 12:15 | disposition home or self-care (01) | DRG 194 ==
LOC: EDBEDREQSVC 18:38 → EDBEDREQ 18:38 → EMR 19:20 → 2W 19:35 → EDBEDREQ 19:50 → 2E 02-23 22:17
DX: I50.43 Acute on chronic combined systolic (congestive) and diastolic (congestive) heart failure (principal); J96.00 Acute respiratory failure, unspecified whether with hypoxia or hypercapnia; B20 Human immunodeficiency virus [HIV] disease; I42.8 Other cardiomyopathies; D50.9 Iron deficiency anemia, unspecified; F19.10 Other psychoactive substance abuse, uncomplicated; J44.1 Chronic obstructive pulmonary disease with (acute) exacerbation; R00.0 Tachycardia, unspecified; Z91.14 Patient's other noncompliance with medication regimen; N40.0 Benign prostatic hyperplasia without lower urinary tract symptoms; J20.9 Acute bronchitis, unspecified; J44.0 Chronic obstructive pulmonary disease with (acute) lower respiratory infection; M10.9 Gout, unspecified; E78.5 Hyperlipidemia, unspecified; I48.0 Paroxysmal atrial fibrillation; Z79.01 Long term (current) use of anticoagulants; F14.188 Cocaine abuse with other cocaine-induced disorder; E11.22 Type 2 diabetes mellitus with diabetic chronic kidney disease; I12.9 Hypertensive chronic kidney disease with stage 1 through stage 4 chronic kidney disease, or unspecified chronic kidney disease; N18.9 Chronic kidney disease, unspecified; R97.0 Elevated carcinoembryonic antigen [CEA]
CPT/HCPCS: 36415; 71010; 76775; 80053; 80300; 82248; 82378; 82550; 82553; 82607; 82728; 82746; 82962; 83540; 83550; 83615; 83880; 84484; 84550; 85007; 85025; 85044; 85060; 85610; 85651; 85730; 86360; 87536; 93005; 93306; 94660; 94664; J1815

== ENCOUNTER 2018-02-15 09:38 | Emergency (ER) | payer OTHER ==
[~2018-02-15] VITALS: Ht 170.2 cm; Wt 74.4 kg
[~2018-02-15 09:38] MED LIST changes: +ALDACTONE25 MG ORAL; +ALLOPURINOL300 M1 ORAL; +ATORVASTATIN CA40 MG ORAL; +BACTRIM-DS1 EA ORAL; +COREG12.5 MG ORAL; +COUMADIN3 MG ORAL; +FUROSEMIDE40 MG ORAL; +GENVOYA TABLET1 EACH PO; +LANOXIN125 MCG ORAL; +LEXAPRO10 MG ORAL; +LISINOPRIL2.5 MG ORAL; +WARFARIN SODIU7.5 MG ORAL; +[UNRECOGNIZED DRUG - OTHER] PO
[2018-02-15] MEDS ORDERED: UNOBMED (09:46)
[2018-02-15 09:55] VITALS: BP 97/71
--- NOTE | 2018-02-15 10:01 | Emergency Room Report ---
History of Present Illness General Chief Complaint: Edema Source: Patient Present Illness HPI 57-year-old male presents ED for leg swelling and shortness of breath 1 day. Notes history of CHF. He states he missed his water pill once. Denies chest pain. States there is some shortness of breath intermittently. Denies fevers chills. Denies cough. No other aggravating relieving factors. Denies any other associated symptoms Allergies: Coded Allergies: No Known Allergies (Unverified , 12/05/16) Patient History Past Medical History: CHF, COPD Past Surgical History: none Pertinent Family History: none Social History: Denies: smoking, alcohol use, drug use Immunizations: UTD Reviewed Nursing Documentation: PMH: Agreed; PSxH: Agreed Nursing Documentation-PMH Hx Cardiac Problems: Yes - CHF Hx COPD: Yes Hx Cancer: No Hx Gastrointestinal Problems: No Hx Neurological Problems: No Review of Systems All Other Systems: negative except mentioned in HPI Physical Exam Vital Signs Date Time Temp Pulse Resp B/P (MAP) Pulse Ox O2 Delivery O2 Flow Rate FiO2 02/15/18 09:43 98.2 130 22 103/72 97 Room Air 98.2 Sp02 EP Interpretation: reviewed, normal General Appearance: no apparent distress, alert, GCS 15, non-toxic Head: normocephalic, atraumatic Eyes: bilateral eye normal inspection, bilateral eye PERRL ENT: hearing grossly normal, normal pharynx, no angioedema, normal voice Neck: full range of motion, supple/symm/no masses Respiratory: chest non-tender, lungs clear, normal breath sounds, crackles, speaking full sentences Cardiovascular #1: no edema, tachycardia Cardiovascular #2: 2+ carotid (R), 2+ carotid (L), 2+ radial (R), 2+ radial (L) , 2+ dorsalis pedis (R), 2+ dorsalis pedis (L) Gastrointestinal: normal bowel sounds, non tender, soft, non-distended, no guarding, no rebound Rectal: deferred Genitourinary: normal inspection, no CVA tenderness Musculoskeletal: back normal, gait/station normal, normal range of motion, non- tender, swelling - 2+ pitting edema b/l LEs Neurologic: alert, oriented x3, responsive, motor strength/tone normal, sensory intact, speech normal Psychiatric: judgement/insight normal, memory normal, mood/affect normal, no suicidal/homicidal ideation Reflexes: 3+ bicep (R), 3+ bicep (L), 3+ tricep (R), 3+ tricep (L), 3+ knee (R) , 3+ knee (L) Skin: normal color, no rash, warm/dry, well hydrated Lymphatic: no adenopathy Medical Decision Making Diagnostic Impression: Primary Impression: chf ER Course Hospital Course 57-year-old male presents ED complaining of shortness of breath, leg swelling Differential diagnoses include: MD/unstable angina, contusion, muscle strain, PTX, rib fracture Clinical course Patient placed on stretcher. on cardiac rn. After initial history and physical I ordered labs, EKG, chest x-ray labs reviewed- no leukocytosis, hemoglobin/hematocrit stable, creatinine elevated, troponins negative, BNP > 3000 EKG - sinus tachycardia no acute ischemic changes interpreted by me Chest x-ray- cardiomegaly K repleted. Lasix given. because of insurance patient will be transferred. Patient states he wishes to go home. Understands the risks of leaving. Patient has competency to make his own decisions. Signed AMA form. I. I feel this is a highly complex case requiring extensive working including EKG/Rhythm strip, Xray/CT/US, Blood/urine lab work, repeat exams while in ED, and administration of strong opiates/narcotics for pain control, admission to hospital or close patient follow up. Diagnosis - CHF exacerbation patient left AMA Labs Test 02/15/18 09:03 White Blood Count 3.0 K/UL (4.8-10.8) Red Blood Count 4.75 M/UL (4.70-6.10) Hemoglobin 13.5 G/DL (14.2-18.0) Hematocrit 44.7 % (42.0-52.0) Mean Corpuscular Volume 94 FL (80-99) Mean Corpuscular Hemoglobin 28.4 PG (27.0-31.0) Mean Corpuscular Hemoglobin Concent 30.2 G/DL (32.0-36.0) Red Cell Distribution Width 18.3 % (11.6-14.8) Platelet Count 168 K/UL (150-450) Mean Platelet Volume 6.4 FL (6.5-10.1) Neutrophils (%) (Auto) % (45.0-75.0) Lymphocytes (%) (Auto) % (20.0-45.0) Monocytes (%) (Auto) % (1.0-10.0) Eosinophils (%) (Auto) % (0.0-3.0) Basophils (%) (Auto) % (0.0-2.0) Differential Total Cells Counted 100 Neutrophils % (Manual) 62 % (45-75) Lymphocytes % (Manual) 26 % (20-45) Monocytes % (Manual) 10 % (1-10) Eosinophils % (Manual) 2 % (0-3) Basophils % (Manual) 0 % (0-2) Band Neutrophils 0 % (0-8) Platelet Estimate Adequate Platelet Morphology Normal Anisocytosis 1+ Prothrombin Time 12.5 SEC (9.30-11.50) Prothromb Time International Ratio 1.2 (0.9-1.1) Activated Partial Thromboplast Time 29 SEC (23-33) Sodium Level 141 MMOL/L (136-145) Potassium Level 3.4 MMOL/L (3.5-5.1) Chloride Level 103 MMOL/L (98-107) Carbon Dioxide Level 30 MMOL/L (21-32) Anion Gap 8 mmol/L (5-15) Blood Urea Nitrogen 17 mg/dL (7-18) Creatinine 1.4 MG/DL (0.55-1.30) Estimat Glomerular Filtration Rate > 60 mL/min (>60) Glucose Level 113 MG/DL (74-106) Calcium Level 8.7 MG/DL (8.5-10.1) Total Bilirubin 1.3 MG/DL (0.2-1.0) Direct Bilirubin 0.8 MG/DL (0.0-0.3) Aspartate Amino Transf (AST/SGOT) 37 U/L (15-37) Alanine Aminotransferase (ALT/SGPT) 22 U/L (12-78) Alkaline Phosphatase 193 U/L (46-116) Total Creatine Kinase 178 U/L (26-308) Creatine Kinase MB 2.8 NG/ML (0.0-3.6) Creatine Kinase MB Relative Index 1.5 Troponin I 0.045 ng/mL (0.000-0.056) Pro-B-Type Natriuretic Peptide 3333 pg/mL (0-125) Total Protein 8.2 G/DL (6.4-8.2) Albumin 3.0 G/DL (3.4-5.0) Globulin 5.2 g/dL Albumin/Globulin Ratio 0.6 (1.0-2.7) Digoxin Level < 0.2 NG/ML (0.5-2.0) EKG Diagnostic Results Rate: tachycardiac Rhythm: NSR ST Segments: no acute changes Rhythm Strip Diag. Results EP Interpretation: yes Rhythm: NSR, no PVC's, no ectopy Chest X-Ray Diagnostic Results Chest X-Ray Diagnostic Results : Chest X-Ray Ordered: Yes # of Views/Limited/Complete: 1 View Indication: Shortness of Breath EP Interpretation: Yes Interpretation: no consolidation, no effusion, no pneumothorax, other - cardiomegaly Impression: No acute disease - cardiomegaly Electronically Signed by: Electronically signed by Deangelo Owens MD Last Vital Signs Date Time Temp Pulse Resp B/P (MAP) Pulse Ox O2 Delivery O2 Flow Rate FiO2 02/15/18 09:43 98.2 130 22 103/72 97 Room Air 98.2 Status: improved Disposition: AGAINST MEDICAL ADVICE Condition: Stable Deangelo Owens MD Feb 15, 2018 10:01
[2018-02-15 10:08] LABS: HEMATOCRIT 44.7 % (42.0-52.0); HEMOGLOBIN 13.5 G/DL (14.2-18.0); MEAN CORPUSCULAR VOLUME 94 FL (80-99); PLATELET COUNT 168 K/UL (150-450); RED BLOOD COUNT 4.75 M/UL (4.70-6.10); RED CELL DISTRIBUTION WIDTH 18.3 % (11.6-14.8)
[2018-02-15 10:16] LABS: INR 1.2 (0.9-1.1)
[2018-02-15 10:40] LABS: ANION GAP 8 mmol/L (5-15); BLOOD UREA NITROGEN 17 mg/dL (7-18); CALCIUM 8.7 MG/DL (8.5-10.1); CARBON DIOXIDE 30 MMOL/L (21-32); CHLORIDE 103 MMOL/L (98-107); CREATININE 1.4 MG/DL (0.55-1.30); POTASSIUM 3.4 MMOL/L (3.5-5.1); SODIUM 141 MMOL/L (136-145)
[2018-02-15 11:03] LABS: ALANINE AMINOTRANSFERASE 22 U/L (12-78); ALBUMIN/GLOBULIN RATIO 0.6 (1.0-2.7); ALKALINE PHOSPHATASE 193 U/L (46-116); ASPARTATE AMINO TRANSFERASE 37 U/L (15-37); BILIRUBIN,TOTAL 1.3 MG/DL (0.2-1.0); CKMB 2.8 NG/ML (0.0-3.6); CREATINE KINASE 178 U/L (26-308)
--- NOTE | 2018-02-15 11:11 | Diagnostic Imaging Report ---
Indication: Shortness of breath Technique: One view of the chest Comparison: 02/23/2017 Findings: The lungs and pleural spaces are clear. Heart is enlarged. Previously demonstrated left-sided linear opacities are no longer evident Impression: No acute process Cardiomegaly
[2018-02-15 11:14] LABS: BILIRUBIN,DIRECT 0.8 MG/DL (0.0-0.3)
[2018-02-15 11:30] VITALS: BP 108/78
[2018-02-15] MEDS ORDERED: Sodium Chloride 500ML 500 ML IV ONE (11:30)
[2018-02-15 12:00] VITALS: BP 111/78
== END 2018-02-15 12:00 | disposition left against medical advice (07) ==
LOC: EMR 10:00 → EDBEDREQ 10:25 → EMR 12:00
DX: I50.9 Heart failure, unspecified (principal); J44.9 Chronic obstructive pulmonary disease, unspecified; R00.0 Tachycardia, unspecified
CPT/HCPCS: 36415; 71045; 80053; 80162; 82248; 82550; 82553; 83880; 84484; 85007; 85025; 85610; 85730; 93005; 96374; 99284; J1940; J8499